=== PATIENT | male | born 1955 | race Caucasian/White ===

== ENCOUNTER 2017-04-11 05:59 | Outpatient (RCR) | payer MEDICARE, BC ==
[2016-05-12 10:49] VITALS: BMI 38.1
[~2017-04-11 05:59] MED LIST: ALLO100T70 PO; ASPI-1471 PO; BACOO OP; BETH25TA29 PO; BLOO1STR16 MC; BUM2 PO; CALC-515 PO; CEPH500T7 PO; CHOL10005 PO; DEXTROSE 50% 50 ML SYR IVP PRN; DOCU-202 PO; ERGO500037 PO; ESCI10TA8 PO; GABA-490 PO; GABA-503 PO; GABA-547 PO; GABA-549 PO; INSU100V26 IJ; INSU100V26 SUBQ; ISOS30TA54 PO; LOR5/325 PO; LORA-630 PO; METO2.5T15 PO; MIDO10TA9 PO; MIRT-22 PO; MORP-181 PO; NPH,100V2 IJ; NPH,100V2 SUBQ; ONDA4TAB PO; OXYC20TA12 PO; PANT40TA65 PO; PNEU0.5D3 IM; POLY17PO11 PO; PROMETHAZINE HCL 25 MG TAB PO PRN; SENN-187 PO; TAMS0.4C70 PO; VIT-35 PO; [UNRECOGNIZED DRUG - CODE] ID; [UNRECOGNIZED DRUG - CODE] PO; [UNRECOGNIZED DRUG - CODE] PO
[2017-04-11] MEDS: HEPARIN SOD (PORCINE) LOAD IVP PRN (06:19)
[2017-04-11] MEDS: HEPARIN (PORCINE) 1000 UNIT/ML (DIALYSIS) IVP PRN (06:19)
[2017-04-13] MEDS: HEPARIN SOD (PORCINE) LOAD IVP PRN (06:28)
[2017-04-13] MEDS: HEPARIN (PORCINE) 1000 UNIT/ML (DIALYSIS) IVP PRN (06:28)
[2017-04-13] MEDS: SODIUM FERRIC GLUC 62.5 MG/5ML IVP PRN (07:17)
[2017-04-15] MEDS: HEPARIN SOD (PORCINE) LOAD IVP PRN (06:29)
[2017-04-15] MEDS: HEPARIN (PORCINE) 1000 UNIT/ML (DIALYSIS) IVP PRN (06:29)
[2017-04-15] MEDS: DARBEPOETIN ESRD 25 MCG/ML IVP PRN (07:30)
[2017-04-18] MEDS: HEPARIN SOD (PORCINE) LOAD IVP PRN (06:31)
[2017-04-18] MEDS: HEPARIN (PORCINE) 1000 UNIT/ML (DIALYSIS) IVP PRN (06:31)
[2017-04-20] MEDS: HEPARIN (PORCINE) 1000 UNIT/ML (DIALYSIS) IVP PRN (06:15)
[2017-04-20] MEDS: HEPARIN SOD (PORCINE) LOAD IVP PRN (06:15)
[2017-04-20] MEDS: SODIUM FERRIC GLUC 62.5 MG/5ML IVP PRN (07:15)
[2017-04-22] MEDS: HEPARIN (PORCINE) 1000 UNIT/ML (DIALYSIS) IVP PRN (06:34)
[2017-04-22] MEDS: HEPARIN SOD (PORCINE) LOAD IVP PRN (06:35)
[2017-04-22] MEDS: DARBEPOETIN ESRD 25 MCG/ML IVP PRN (07:13)
[2017-04-25] MEDS: HEPARIN (PORCINE) 1000 UNIT/ML (DIALYSIS) IVP PRN (06:07)
[2017-04-25] MEDS: HEPARIN SOD (PORCINE) LOAD IVP PRN (06:07)
[2017-04-27] MEDS: HEPARIN SOD (PORCINE) LOAD IVP PRN (06:28)
[2017-04-27] MEDS: HEPARIN (PORCINE) 1000 UNIT/ML (DIALYSIS) IVP PRN (06:28)
[2017-04-27] MEDS: SODIUM FERRIC GLUC 62.5 MG/5ML IVP PRN (07:16)
[2017-04-27 09:00] LABS: PLATELET COUNT, AUTOMATED 159 K/uL (150-450)
[2017-04-29] MEDS: HEPARIN (PORCINE) 1000 UNIT/ML (DIALYSIS) IVP PRN (06:16)
[2017-04-29] MEDS: HEPARIN SOD (PORCINE) LOAD IVP PRN (06:16)
[2017-04-29] MEDS: DARBEPOETIN ESRD 25 MCG/ML IVP PRN (07:11)
[2017-05-02] MEDS: HEPARIN SOD (PORCINE) LOAD IVP PRN (06:21)
[2017-05-02] MEDS: HEPARIN (PORCINE) 1000 UNIT/ML (DIALYSIS) IVP PRN (06:21)
[2017-05-02] MEDS ORDERED: NOVOLINRPT IJ (14:09)
[2017-05-02] MEDS ORDERED: NPH,100V12 SQ (14:09)
[2017-05-02] MEDS ORDERED: GABA-549 PO (14:09)
[2017-05-03] MEDS ORDERED: NPH,100V12 SQ (14:30)
[2017-05-03] MEDS ORDERED: NOVOLINRPT IJ (14:30)
[2017-05-04] MEDS: HEPARIN (PORCINE) 1000 UNIT/ML (DIALYSIS) IVP PRN (06:21)
[2017-05-04] MEDS: HEPARIN SOD (PORCINE) LOAD IVP PRN (06:21)
[2017-05-04] MEDS: SODIUM FERRIC GLUC 62.5 MG/5ML IVP PRN (07:26)
[2017-05-06] MEDS: HEPARIN SOD (PORCINE) LOAD IVP PRN (06:18)
[2017-05-06] MEDS: HEPARIN (PORCINE) 1000 UNIT/ML (DIALYSIS) IVP PRN (06:18)
[2017-05-06] MEDS: DARBEPOETIN ESRD 25 MCG/ML IVP PRN (07:24)
[2017-05-09] MEDS: HEPARIN SOD (PORCINE) LOAD IVP PRN (06:25)
[2017-05-09] MEDS: HEPARIN (PORCINE) 1000 UNIT/ML (DIALYSIS) IVP PRN (06:25)
[2017-05-11] MEDS: HEPARIN SOD (PORCINE) LOAD IVP PRN (06:28)
[2017-05-11] MEDS: HEPARIN (PORCINE) 1000 UNIT/ML (DIALYSIS) IVP PRN (06:28)
[2017-05-11] MEDS: SODIUM FERRIC GLUC 62.5 MG/5ML IVP PRN (07:13)
[2017-05-13] MEDS: HEPARIN SOD (PORCINE) LOAD IVP PRN (06:21)
[2017-05-13] MEDS: HEPARIN (PORCINE) 1000 UNIT/ML (DIALYSIS) IVP PRN (06:21)
[2017-05-13] MEDS: DARBEPOETIN ESRD 25 MCG/ML IVP PRN (07:16)
[2017-05-16] MEDS: HEPARIN (PORCINE) 1000 UNIT/ML (DIALYSIS) IVP PRN (06:21)
[2017-05-16] MEDS: HEPARIN SOD (PORCINE) LOAD IVP PRN (06:21)
[2017-05-17] MEDS ORDERED: HEPARIN (PORCINE) 1000 UNIT/ML (DIALYSIS) IVP PRN ×2
[2017-05-17] MEDS: HEPARIN SOD (PORCINE) LOAD IVP PRN (07:05)
[2017-05-18] MEDS: HEPARIN SOD (PORCINE) LOAD IVP PRN (06:31)
[2017-05-18] MEDS: HEPARIN (PORCINE) 1000 UNIT/ML (DIALYSIS) IVP PRN (06:31)
[2017-05-18] MEDS: SODIUM FERRIC GLUC 62.5 MG/5ML IVP PRN (07:55)
[2017-05-18] MEDS: DIALYSIS ACETAMINOPHEN 325 MG PO PRN (08:54)
[2017-05-20] MEDS: HEPARIN (PORCINE) 1000 UNIT/ML (DIALYSIS) IVP PRN (06:11)
[2017-05-20] MEDS: HEPARIN SOD (PORCINE) LOAD IVP PRN (06:11)
[2017-05-20] MEDS ORDERED: DARBEPOETIN ESRD 25 MCG/ML IVP PRN (10:15)
[2017-05-23] MEDS: HEPARIN (PORCINE) 1000 UNIT/ML (DIALYSIS) IVP PRN (06:23)
[2017-05-23] MEDS: HEPARIN SOD (PORCINE) LOAD IVP PRN (06:23)
[2017-05-25] MEDS: HEPARIN (PORCINE) 1000 UNIT/ML (DIALYSIS) IVP PRN (06:27)
[2017-05-25] MEDS: HEPARIN SOD (PORCINE) LOAD IVP PRN (06:27)
[2017-05-25] MEDS: SODIUM FERRIC GLUC 62.5 MG/5ML IVP PRN (07:30)
[2017-05-25] MEDS: DIALYSIS ACETAMINOPHEN 325 MG PO PRN (10:46)
[2017-05-27] MEDS: HEPARIN (PORCINE) 1000 UNIT/ML (DIALYSIS) IVP PRN (06:13)
[2017-05-27] MEDS: HEPARIN SOD (PORCINE) LOAD IVP PRN (06:13)
[2017-05-30] MEDS: HEPARIN SOD (PORCINE) LOAD IVP PRN (06:25)
[2017-05-30] MEDS: HEPARIN (PORCINE) 1000 UNIT/ML (DIALYSIS) IVP PRN (06:25)
[2017-05-30] MEDS: LOPERAMIDE HCL 2 MG CAP PO PRN (07:21)
[2017-06-01] MEDS: HEPARIN SOD (PORCINE) LOAD IVP PRN (06:23)
[2017-06-01] MEDS: HEPARIN (PORCINE) 1000 UNIT/ML (DIALYSIS) IVP PRN (06:24)
[2017-06-01] MEDS: LOPERAMIDE HCL 2 MG CAP PO PRN (06:44)
[2017-06-01 07:03] LABS: PLATELET COUNT, AUTOMATED 165 K/uL (150-450)
[2017-06-01] MEDS: SODIUM FERRIC GLUC 62.5 MG/5ML IVP PRN (07:18)
[2017-06-03] MEDS: HEPARIN (PORCINE) 1000 UNIT/ML (DIALYSIS) IVP PRN (06:13)
[2017-06-03] MEDS: HEPARIN SOD (PORCINE) LOAD IVP PRN (06:13)
[2017-06-03] MEDS ORDERED: GABA-490 PO (10:29)
[2017-06-03] MEDS: DARBEPOETIN ESRD 25 MCG/ML IVP PRN (10:39)
[2017-06-06] MEDS: HEPARIN (PORCINE) 1000 UNIT/ML (DIALYSIS) IVP PRN (06:10)
[2017-06-06] MEDS: HEPARIN SOD (PORCINE) LOAD IVP PRN (06:10)
[2017-06-08] MEDS: HEPARIN (PORCINE) 1000 UNIT/ML (DIALYSIS) IVP PRN (06:16)
[2017-06-08] MEDS: HEPARIN SOD (PORCINE) LOAD IVP PRN (06:16)
[2017-06-08] MEDS: SODIUM FERRIC GLUC 62.5 MG/5ML IVP PRN (07:20)
[2017-06-08] MEDS ORDERED: BUM2 PO (09:35)
[2017-06-10] MEDS: HEPARIN (PORCINE) 1000 UNIT/ML (DIALYSIS) IVP PRN (06:08)
[2017-06-10] MEDS: HEPARIN SOD (PORCINE) LOAD IVP PRN (06:08)
[2017-06-10] MEDS: DARBEPOETIN ESRD 25 MCG/ML IVP PRN (06:15)
[2017-06-13] MEDS: HEPARIN SOD (PORCINE) LOAD IVP PRN (06:16)
[2017-06-13] MEDS: HEPARIN (PORCINE) 1000 UNIT/ML (DIALYSIS) IVP PRN (06:17)
[2017-06-15] MEDS: HEPARIN (PORCINE) 1000 UNIT/ML (DIALYSIS) IVP PRN (06:19)
[2017-06-15] MEDS: HEPARIN SOD (PORCINE) LOAD IVP PRN (06:21)
[2017-06-15] MEDS: SODIUM FERRIC GLUC 62.5 MG/5ML IVP PRN (07:11)
[2017-06-15] MEDS ORDERED: GABA-490 PO (09:44)
[2017-06-17] MEDS: HEPARIN SOD (PORCINE) LOAD IVP PRN (06:16)
[2017-06-17] MEDS: HEPARIN (PORCINE) 1000 UNIT/ML (DIALYSIS) IVP PRN (06:16)
[2017-06-17] MEDS: DARBEPOETIN ESRD 25 MCG/ML IVP PRN (07:07)
[2017-06-17] MEDS: DIALYSIS ACETAMINOPHEN 325 MG PO PRN (09:04)
[2017-06-20] MEDS: HEPARIN (PORCINE) 1000 UNIT/ML (DIALYSIS) IVP PRN (06:19)
[2017-06-20] MEDS: HEPARIN SOD (PORCINE) LOAD IVP PRN (06:19)
[2017-06-22] MEDS: HEPARIN (PORCINE) 1000 UNIT/ML (DIALYSIS) IVP PRN (06:20)
[2017-06-22] MEDS: HEPARIN SOD (PORCINE) LOAD IVP PRN (06:20)
[2017-06-22] MEDS: SODIUM FERRIC GLUC 62.5 MG/5ML IVP PRN (07:17)
[2017-06-24] MEDS: HEPARIN SOD (PORCINE) LOAD IVP PRN (06:18)
[2017-06-24] MEDS: HEPARIN (PORCINE) 1000 UNIT/ML (DIALYSIS) IVP PRN (06:18)
[2017-06-24] MEDS: DARBEPOETIN ESRD 25 MCG/ML IVP PRN (07:07)
[2017-06-27] MEDS: HEPARIN SOD (PORCINE) LOAD IVP PRN (06:15)
[2017-06-27] MEDS: HEPARIN (PORCINE) 1000 UNIT/ML (DIALYSIS) IVP PRN (06:15)
[2017-06-29] MEDS: HEPARIN SOD (PORCINE) LOAD IVP PRN (06:22)
[2017-06-29] MEDS: HEPARIN (PORCINE) 1000 UNIT/ML (DIALYSIS) IVP PRN (06:22)
[2017-06-29] MEDS: SODIUM FERRIC GLUC 62.5 MG/5ML IVP PRN (07:02)
[2017-06-29 07:25] LABS: PLATELET COUNT, AUTOMATED 185 K/uL (150-450)
[2017-06-29] MEDS: LOPERAMIDE HCL 2 MG CAP PO PRN (07:48)
[2017-07-01] MEDS: HEPARIN (PORCINE) 1000 UNIT/ML (DIALYSIS) IVP PRN (06:31)
[2017-07-01] MEDS: HEPARIN SOD (PORCINE) LOAD IVP PRN (06:31)
[2017-07-01] MEDS: DARBEPOETIN ESRD 25 MCG/ML IVP PRN (07:54)
[2017-07-04] MEDS: HEPARIN (PORCINE) 1000 UNIT/ML (DIALYSIS) IVP PRN (06:13)
[2017-07-04] MEDS: HEPARIN SOD (PORCINE) LOAD IVP PRN (06:13)
[2017-07-06] MEDS: HEPARIN (PORCINE) 1000 UNIT/ML (DIALYSIS) IVP PRN (06:22)
[2017-07-06] MEDS: HEPARIN SOD (PORCINE) LOAD IVP PRN (06:22)
[2017-07-06] MEDS: SODIUM FERRIC GLUC 62.5 MG/5ML IVP PRN (07:13)
[2017-07-08] MEDS: HEPARIN (PORCINE) 1000 UNIT/ML (DIALYSIS) IVP PRN (06:14)
[2017-07-08] MEDS: HEPARIN SOD (PORCINE) LOAD IVP PRN (06:15)
[2017-07-08] MEDS: DARBEPOETIN ESRD 25 MCG/ML IVP PRN (06:36)
[2017-07-11] MEDS: HEPARIN SOD (PORCINE) LOAD IVP PRN (06:12)
[2017-07-11] MEDS: HEPARIN (PORCINE) 1000 UNIT/ML (DIALYSIS) IVP PRN (06:13)
[2017-07-11] MEDS: LOPERAMIDE HCL 2 MG CAP PO PRN (07:08)
[2017-07-13] MEDS: HEPARIN (PORCINE) 1000 UNIT/ML (DIALYSIS) IVP PRN (06:21)
[2017-07-13] MEDS: HEPARIN SOD (PORCINE) LOAD IVP PRN (06:21)
[2017-07-13] MEDS: SODIUM FERRIC GLUC 62.5 MG/5ML IVP PRN (07:48)
[2017-07-15] MEDS: HEPARIN SOD (PORCINE) LOAD IVP PRN (06:30)
[2017-07-15] MEDS: HEPARIN (PORCINE) 1000 UNIT/ML (DIALYSIS) IVP PRN (06:30)
[2017-07-15] MEDS: DARBEPOETIN ESRD 40MCG/ML IVP PRN (08:54)
[2017-07-18] MEDS: HEPARIN SOD (PORCINE) LOAD IVP PRN (06:22)
[2017-07-18] MEDS: HEPARIN (PORCINE) 1000 UNIT/ML (DIALYSIS) IVP PRN (06:22)
[2017-07-20] MEDS: HEPARIN SOD (PORCINE) LOAD IVP PRN (06:18)
[2017-07-20] MEDS: HEPARIN (PORCINE) 1000 UNIT/ML (DIALYSIS) IVP PRN (06:18)
[2017-07-20] MEDS: SODIUM FERRIC GLUC 62.5 MG/5ML IVP PRN (07:29)
[2017-07-22] MEDS: HEPARIN (PORCINE) 1000 UNIT/ML (DIALYSIS) IVP PRN (06:14)
[2017-07-22] MEDS: HEPARIN SOD (PORCINE) LOAD IVP PRN (06:14)
[2017-07-22] MEDS: DARBEPOETIN ESRD 40MCG/ML IVP PRN (07:53)
[2017-07-25] MEDS: HEPARIN SOD (PORCINE) LOAD IVP PRN (06:10)
[2017-07-25] MEDS: HEPARIN (PORCINE) 1000 UNIT/ML (DIALYSIS) IVP PRN (06:10)
[2017-07-27] MEDS: HEPARIN (PORCINE) 1000 UNIT/ML (DIALYSIS) IVP PRN (06:31)
[2017-07-27] MEDS: HEPARIN SOD (PORCINE) LOAD IVP PRN (06:31)
[2017-07-27] MEDS: SODIUM FERRIC GLUC 62.5 MG/5ML IVP PRN (07:28)
[2017-07-27 07:35] LABS: PLATELET COUNT, AUTOMATED 198 K/uL (150-450)
[2017-07-29] MEDS: HEPARIN SOD (PORCINE) LOAD IVP PRN (06:12)
[2017-07-29] MEDS: HEPARIN (PORCINE) 1000 UNIT/ML (DIALYSIS) IVP PRN (06:13)
[2017-07-29] MEDS: DARBEPOETIN ESRD 40MCG/ML IVP PRN (06:39)
[2017-08-01] MEDS: HEPARIN (PORCINE) 1000 UNIT/ML (DIALYSIS) IVP PRN (06:10)
[2017-08-01] MEDS: HEPARIN SOD (PORCINE) LOAD IVP PRN (06:10)
[2017-08-03] MEDS: HEPARIN (PORCINE) 1000 UNIT/ML (DIALYSIS) IVP PRN (06:25)
[2017-08-03] MEDS: HEPARIN SOD (PORCINE) LOAD IVP PRN (06:25)
[2017-08-05] MEDS: HEPARIN (PORCINE) 1000 UNIT/ML (DIALYSIS) IVP PRN (06:26)
[2017-08-05] MEDS: HEPARIN SOD (PORCINE) LOAD IVP PRN (06:26)
[2017-08-05] MEDS: DARBEPOETIN ESRD 40MCG/ML IVP PRN (07:49)
[2017-08-08] MEDS: HEPARIN (PORCINE) 1000 UNIT/ML (DIALYSIS) IVP PRN (06:22)
[2017-08-08] MEDS: HEPARIN SOD (PORCINE) LOAD IVP PRN (06:22)
[2017-08-10] MEDS: HEPARIN (PORCINE) 1000 UNIT/ML (DIALYSIS) IVP PRN (06:33)
[2017-08-10] MEDS: HEPARIN SOD (PORCINE) LOAD IVP PRN (06:33)
[2017-08-10] MEDS ORDERED: SODIUM FERRIC GLUC 62.5 MG/5ML IVP PRN (07:00)
[2017-08-12] MEDS: HEPARIN SOD (PORCINE) LOAD IVP PRN (06:23)
[2017-08-12] MEDS: HEPARIN (PORCINE) 1000 UNIT/ML (DIALYSIS) IVP PRN (06:23)
[2017-08-12] MEDS: DARBEPOETIN ESRD 40MCG/ML IVP PRN (07:10)
[2017-08-15] MEDS: HEPARIN SOD (PORCINE) LOAD IVP PRN (06:27)
[2017-08-15] MEDS: HEPARIN (PORCINE) 1000 UNIT/ML (DIALYSIS) IVP PRN (06:28)
[2017-08-17] MEDS: HEPARIN SOD (PORCINE) LOAD IVP PRN (06:41)
[2017-08-17] MEDS: HEPARIN (PORCINE) 1000 UNIT/ML (DIALYSIS) IVP PRN (06:41)
[2017-08-17 08:05] LABS: PLATELET COUNT, AUTOMATED 163 K/uL (150-450)
[2017-08-17] MEDS: DARBEPOETIN ESRD 40MCG/ML IVP PRN (08:56)
[2017-08-24] MEDS: HEPARIN SOD (PORCINE) LOAD IVP PRN (06:22)
[2017-08-24] MEDS: HEPARIN (PORCINE) 1000 UNIT/ML (DIALYSIS) IVP PRN (06:22)
[2017-08-26] MEDS: HEPARIN SOD (PORCINE) LOAD IVP PRN (06:23)
[2017-08-26] MEDS: HEPARIN (PORCINE) 1000 UNIT/ML (DIALYSIS) IVP PRN (06:23)
[2017-08-26] MEDS: DARBEPOETIN ESRD 25 MCG/ML IVP PRN (07:32)
[2017-08-29] MEDS: HEPARIN SOD (PORCINE) LOAD IVP PRN (06:32)
[2017-08-29] MEDS: HEPARIN (PORCINE) 1000 UNIT/ML (DIALYSIS) IVP PRN (06:32)
[2017-08-31] MEDS: HEPARIN SOD (PORCINE) LOAD IVP PRN (06:24)
[2017-08-31] MEDS: HEPARIN (PORCINE) 1000 UNIT/ML (DIALYSIS) IVP PRN (06:25)
[2017-08-31] MEDS: SODIUM FERRIC GLUC 62.5 MG/5ML IVP PRN (07:32)
[2017-09-02] MEDS: HEPARIN SOD (PORCINE) LOAD IVP PRN (06:21)
[2017-09-02] MEDS: HEPARIN (PORCINE) 1000 UNIT/ML (DIALYSIS) IVP PRN (06:22)
[2017-09-02] MEDS: DARBEPOETIN ESRD 25 MCG/ML IVP PRN (07:12)
[2017-09-05] MEDS: HEPARIN (PORCINE) 1000 UNIT/ML (DIALYSIS) IVP PRN (06:33)
[2017-09-05] MEDS: HEPARIN SOD (PORCINE) LOAD IVP PRN (06:33)
[2017-09-07] MEDS: HEPARIN (PORCINE) 1000 UNIT/ML (DIALYSIS) IVP PRN (06:26)
[2017-09-07] MEDS: HEPARIN SOD (PORCINE) LOAD IVP PRN (06:27)
[2017-09-07] MEDS: LOPERAMIDE HCL 2 MG CAP PO PRN (07:20)
[2017-09-07] MEDS: SODIUM FERRIC GLUC 62.5 MG/5ML IVP PRN (07:20)
[2017-09-09] MEDS: HEPARIN SOD (PORCINE) LOAD IVP PRN (06:18)
[2017-09-09] MEDS: HEPARIN (PORCINE) 1000 UNIT/ML (DIALYSIS) IVP PRN (06:18)
[2017-09-09] MEDS: DARBEPOETIN ESRD 40MCG/ML IVP PRN (06:41)
[2017-09-12] MEDS: HEPARIN (PORCINE) 1000 UNIT/ML (DIALYSIS) IVP PRN (06:23)
[2017-09-12] MEDS: HEPARIN SOD (PORCINE) LOAD IVP PRN (06:23)
[2017-09-12] MEDS: LOPERAMIDE HCL 2 MG CAP PO PRN (06:52)
[2017-09-14] MEDS: HEPARIN SOD (PORCINE) LOAD IVP PRN (06:19)
[2017-09-14] MEDS: HEPARIN (PORCINE) 1000 UNIT/ML (DIALYSIS) IVP PRN (06:20)
[2017-09-14] MEDS: LOPERAMIDE HCL 2 MG CAP PO PRN (06:25)
[2017-09-14] MEDS: SODIUM FERRIC GLUC 62.5 MG/5ML IVP PRN (07:16)
[2017-09-14 07:22] LABS: PLATELET COUNT, AUTOMATED 150 K/uL (150-450)
[2017-09-16] MEDS: HEPARIN (PORCINE) 1000 UNIT/ML (DIALYSIS) IVP PRN (06:14)
[2017-09-16] MEDS: HEPARIN SOD (PORCINE) LOAD IVP PRN (06:14)
[2017-09-16] MEDS: DARBEPOETIN ESRD 40MCG/ML IVP PRN (06:57)
[2017-09-19] MEDS: HEPARIN SOD (PORCINE) LOAD IVP PRN (06:09)
[2017-09-19] MEDS: HEPARIN (PORCINE) 1000 UNIT/ML (DIALYSIS) IVP PRN (06:10)
[2017-09-21] MEDS: HEPARIN (PORCINE) 1000 UNIT/ML (DIALYSIS) IVP PRN (06:23)
[2017-09-21] MEDS: HEPARIN SOD (PORCINE) LOAD IVP PRN (06:23)
[2017-09-21] MEDS: SODIUM FERRIC GLUC 62.5 MG/5ML IVP PRN (07:34)
[2017-09-23] MEDS: HEPARIN (PORCINE) 1000 UNIT/ML (DIALYSIS) IVP PRN (06:22)
[2017-09-23] MEDS: HEPARIN SOD (PORCINE) LOAD IVP PRN (06:23)
[2017-09-23] MEDS: DARBEPOETIN ESRD 40MCG/ML IVP PRN (07:00)
[2017-09-23] MEDS: LOPERAMIDE HCL 2 MG CAP PO PRN (07:30)
[2017-09-26] MEDS: HEPARIN (PORCINE) 1000 UNIT/ML (DIALYSIS) IVP PRN (06:18)
[2017-09-26] MEDS: HEPARIN SOD (PORCINE) LOAD IVP PRN (06:18)
[2017-09-27] MEDS ORDERED: MIRT-22 PO (13:21)
[2017-09-28] MEDS: HEPARIN (PORCINE) 1000 UNIT/ML (DIALYSIS) IVP PRN (06:09)
[2017-09-28] MEDS: HEPARIN SOD (PORCINE) LOAD IVP PRN (06:09)
[2017-09-28] MEDS: SODIUM FERRIC GLUC 62.5 MG/5ML IVP PRN (08:05)
[2017-09-28] MEDS ORDERED: PANT40TA65 PO (10:18)
[2017-09-28] MEDS ORDERED: TAMS0.4C70 PO (10:18)
[2017-10-07] MEDS: HEPARIN (PORCINE) 1000 UNIT/ML (DIALYSIS) IVP PRN (13:50)
[2017-10-07] MEDS: HEPARIN SOD (PORCINE) LOAD IVP PRN (13:51)
[2017-10-07] MEDS: DARBEPOETIN ESRD 40MCG/ML IVP PRN (15:44)
[2017-10-10] MEDS: HEPARIN (PORCINE) 1000 UNIT/ML (DIALYSIS) IVP PRN (06:31)
[2017-10-10] MEDS: HEPARIN SOD (PORCINE) LOAD IVP PRN (06:31)
[2017-10-14] MEDS: HEPARIN SOD (PORCINE) LOAD IVP PRN (14:01)
[2017-10-14] MEDS: HEPARIN (PORCINE) 1000 UNIT/ML (DIALYSIS) IVP PRN (14:01)
[2017-10-14] MEDS: DARBEPOETIN ESRD 40MCG/ML IVP PRN (16:28)
[2017-10-17] MEDS: HEPARIN SOD (PORCINE) LOAD IVP PRN (06:14)
[2017-10-17] MEDS: HEPARIN (PORCINE) 1000 UNIT/ML (DIALYSIS) IVP PRN (06:14)
[2017-10-19] MEDS: HEPARIN (PORCINE) 1000 UNIT/ML (DIALYSIS) IVP PRN (06:32)
[2017-10-19] MEDS: HEPARIN SOD (PORCINE) LOAD IVP PRN (06:33)
[2017-10-19] MEDS: SODIUM FERRIC GLUC 62.5 MG/5ML IVP PRN (07:51)
[2017-10-20] MEDS ORDERED: GABA-503 PO (11:04)
[2017-10-20] MEDS ORDERED: NPH,100V12 SQ (11:04)
[2017-10-20] MEDS ORDERED: SULF-198 PO (11:12)
[2017-10-21] MEDS: HEPARIN SOD (PORCINE) LOAD IVP PRN (06:23)
[2017-10-21] MEDS: HEPARIN (PORCINE) 1000 UNIT/ML (DIALYSIS) IVP PRN (06:23)
[2017-10-21] MEDS: DARBEPOETIN ESRD 40MCG/ML IVP PRN (07:44)
[2017-10-24] MEDS: HEPARIN (PORCINE) 1000 UNIT/ML (DIALYSIS) IVP PRN (06:21)
[2017-10-24] MEDS: HEPARIN SOD (PORCINE) LOAD IVP PRN (06:21)
[2017-10-26] MEDS: HEPARIN SOD (PORCINE) LOAD IVP PRN (06:26)
[2017-10-26] MEDS: HEPARIN (PORCINE) 1000 UNIT/ML (DIALYSIS) IVP PRN (06:26)
[2017-10-26] MEDS: SODIUM FERRIC GLUC 62.5 MG/5ML IVP PRN (07:38)
[2017-10-26 07:55] LABS: PLATELET COUNT, AUTOMATED 168 K/uL (150-450)
[2017-10-28] MEDS: HEPARIN (PORCINE) 1000 UNIT/ML (DIALYSIS) IVP PRN (06:39)
[2017-10-28] MEDS: HEPARIN SOD (PORCINE) LOAD IVP PRN (06:39)
[2017-10-28] MEDS: DARBEPOETIN ESRD 40MCG/ML IVP PRN (08:16)
[2017-10-31] MEDS: HEPARIN SOD (PORCINE) LOAD IVP PRN (06:18)
[2017-10-31] MEDS: HEPARIN (PORCINE) 1000 UNIT/ML (DIALYSIS) IVP PRN (06:18)
[2017-11-02] MEDS: HEPARIN (PORCINE) 1000 UNIT/ML (DIALYSIS) IVP PRN (06:17)
[2017-11-02] MEDS: HEPARIN SOD (PORCINE) LOAD IVP PRN (06:18)
[2017-11-02] MEDS: SODIUM FERRIC GLUC 62.5 MG/5ML IVP PRN (06:53)
[2017-11-02] MEDS ORDERED: CHOL10005 PO (09:46)
[2017-11-04] MEDS: HEPARIN SOD (PORCINE) LOAD IVP PRN (06:18)
[2017-11-04] MEDS: HEPARIN (PORCINE) 1000 UNIT/ML (DIALYSIS) IVP PRN (06:18)
[2017-11-04] MEDS: DARBEPOETIN ESRD 25 MCG/ML IVP PRN (07:25)
[2017-11-04] MEDS: DIALYSIS ACETAMINOPHEN 325 MG PO PRN (08:17)
[2017-11-07] MEDS: HEPARIN SOD (PORCINE) LOAD IVP PRN (06:15)
[2017-11-07] MEDS: HEPARIN (PORCINE) 1000 UNIT/ML (DIALYSIS) IVP PRN (06:15)
[2017-11-09] MEDS: HEPARIN SOD (PORCINE) LOAD IVP PRN (06:28)
[2017-11-09] MEDS: HEPARIN (PORCINE) 1000 UNIT/ML (DIALYSIS) IVP PRN (06:28)
[2017-11-09] MEDS: SODIUM FERRIC GLUC 62.5 MG/5ML IVP PRN (07:17)
[2017-11-11] MEDS: HEPARIN (PORCINE) 1000 UNIT/ML (DIALYSIS) IVP PRN (06:23)
[2017-11-11] MEDS: HEPARIN SOD (PORCINE) LOAD IVP PRN (06:23)
[2017-11-11] MEDS: LOPERAMIDE HCL 2 MG CAP PO PRN (06:31)
[2017-11-11] MEDS: DARBEPOETIN ESRD 25 MCG/ML IVP PRN (10:59)
[2017-11-14] MEDS: HEPARIN (PORCINE) 1000 UNIT/ML (DIALYSIS) IVP PRN (06:28)
[2017-11-14] MEDS: HEPARIN SOD (PORCINE) LOAD IVP PRN (06:28)
[2017-11-16] MEDS: HEPARIN SOD (PORCINE) LOAD IVP PRN (06:18)
[2017-11-16] MEDS: HEPARIN (PORCINE) 1000 UNIT/ML (DIALYSIS) IVP PRN (06:18)
[2017-11-16] MEDS: LOPERAMIDE HCL 2 MG CAP PO PRN (07:18)
[2017-11-16] MEDS: SODIUM FERRIC GLUC 62.5 MG/5ML IVP PRN (07:18)
[2017-11-16 07:31] LABS: PLATELET COUNT, AUTOMATED 183 K/uL (150-450)
[2017-11-17] MEDS ORDERED: PANT40TA65 PO (16:01)
[2017-11-17] MEDS ORDERED: TAMS0.4C70 PO (16:01)
[2017-11-18] MEDS: HEPARIN SOD (PORCINE) LOAD IVP PRN (06:08)
[2017-11-18] MEDS: HEPARIN (PORCINE) 1000 UNIT/ML (DIALYSIS) IVP PRN (06:09)
[2017-11-18] MEDS: DARBEPOETIN ESRD 25 MCG/ML IVP PRN (06:44)
[2017-11-21] MEDS: HEPARIN (PORCINE) 1000 UNIT/ML (DIALYSIS) IVP PRN (06:15)
[2017-11-21] MEDS: HEPARIN SOD (PORCINE) LOAD IVP PRN (06:15)
[2017-11-21] MEDS: LOPERAMIDE HCL 2 MG CAP PO PRN (06:30)
[2017-11-23] MEDS: HEPARIN SOD (PORCINE) LOAD IVP PRN (06:20)
[2017-11-23] MEDS: HEPARIN (PORCINE) 1000 UNIT/ML (DIALYSIS) IVP PRN (06:20)
[2017-11-23] MEDS: SODIUM FERRIC GLUC 62.5 MG/5ML IVP PRN (07:13)
[2017-11-25] MEDS: HEPARIN SOD (PORCINE) LOAD IVP PRN (06:18)
[2017-11-25] MEDS: HEPARIN (PORCINE) 1000 UNIT/ML (DIALYSIS) IVP PRN (06:18)
[2017-11-25] MEDS: DARBEPOETIN ESRD 25 MCG/ML IVP PRN (07:13)
[2017-11-28] MEDS: HEPARIN SOD (PORCINE) LOAD IVP PRN (06:04)
[2017-11-28] MEDS: HEPARIN (PORCINE) 1000 UNIT/ML (DIALYSIS) IVP PRN (06:05)
[2017-11-30] MEDS: HEPARIN SOD (PORCINE) LOAD IVP PRN (06:21)
[2017-11-30] MEDS: HEPARIN (PORCINE) 1000 UNIT/ML (DIALYSIS) IVP PRN (06:22)
[2017-11-30] MEDS: SODIUM FERRIC GLUC 62.5 MG/5ML IVP PRN (06:29)
[2017-12-02] MEDS: HEPARIN SOD (PORCINE) LOAD IVP PRN (06:23)
[2017-12-02] MEDS: HEPARIN (PORCINE) 1000 UNIT/ML (DIALYSIS) IVP PRN (06:23)
[2017-12-02] MEDS: DARBEPOETIN ESRD 25 MCG/ML IVP PRN (07:14)
[2017-12-05] MEDS: HEPARIN (PORCINE) 1000 UNIT/ML (DIALYSIS) IVP PRN (06:13)
[2017-12-05] MEDS: HEPARIN SOD (PORCINE) LOAD IVP PRN (06:14)
[2017-12-07] MEDS: HEPARIN SOD (PORCINE) LOAD IVP PRN (06:10)
[2017-12-07] MEDS: HEPARIN (PORCINE) 1000 UNIT/ML (DIALYSIS) IVP PRN (06:10)
[2017-12-07] MEDS: SODIUM FERRIC GLUC 62.5 MG/5ML IVP PRN (07:05)
[2017-12-09] MEDS: HEPARIN (PORCINE) 1000 UNIT/ML (DIALYSIS) IVP PRN (06:21)
[2017-12-09] MEDS: HEPARIN SOD (PORCINE) LOAD IVP PRN (06:21)
[2017-12-09] MEDS: DARBEPOETIN ESRD 25 MCG/ML IVP PRN (07:34)
[2017-12-12] MEDS: HEPARIN (PORCINE) 1000 UNIT/ML (DIALYSIS) IVP PRN (06:21)
[2017-12-12] MEDS: HEPARIN SOD (PORCINE) LOAD IVP PRN (06:21)
[2017-12-14] MEDS: HEPARIN (PORCINE) 1000 UNIT/ML (DIALYSIS) IVP PRN (06:16)
[2017-12-14] MEDS: HEPARIN SOD (PORCINE) LOAD IVP PRN (06:17)
[2017-12-14] MEDS: SODIUM FERRIC GLUC 62.5 MG/5ML IVP PRN (06:43)
[2017-12-16] MEDS: HEPARIN (PORCINE) 1000 UNIT/ML (DIALYSIS) IVP PRN (06:08)
[2017-12-16] MEDS: HEPARIN SOD (PORCINE) LOAD IVP PRN (06:09)
[2017-12-16] MEDS: DARBEPOETIN ESRD 25 MCG/ML IVP PRN (07:23)
[2017-12-19] MEDS: HEPARIN SOD (PORCINE) LOAD IVP PRN (06:14)
[2017-12-19] MEDS: HEPARIN (PORCINE) 1000 UNIT/ML (DIALYSIS) IVP PRN (06:15)
[2017-12-20] MEDS ORDERED: BLOO1STR16 MC (16:46)
[2017-12-21] MEDS: HEPARIN SOD (PORCINE) LOAD IVP PRN (06:25)
[2017-12-21] MEDS: HEPARIN (PORCINE) 1000 UNIT/ML (DIALYSIS) IVP PRN (06:25)
[2017-12-21] MEDS: SODIUM FERRIC GLUC 62.5 MG/5ML IVP PRN (07:19)
[2017-12-23] MEDS: HEPARIN SOD (PORCINE) LOAD IVP PRN (06:10)
[2017-12-23] MEDS: HEPARIN (PORCINE) 1000 UNIT/ML (DIALYSIS) IVP PRN (06:11)
[2017-12-23] MEDS: DARBEPOETIN ESRD 25 MCG/ML IVP PRN (07:14)
[2017-12-26] MEDS: HEPARIN SOD (PORCINE) LOAD IVP PRN (06:12)
[2017-12-26] MEDS: HEPARIN (PORCINE) 1000 UNIT/ML (DIALYSIS) IVP PRN (06:13)
[2017-12-28] MEDS: HEPARIN SOD (PORCINE) LOAD IVP PRN (06:09)
[2017-12-28] MEDS: HEPARIN (PORCINE) 1000 UNIT/ML (DIALYSIS) IVP PRN (06:09)
[2017-12-28] MEDS: SODIUM FERRIC GLUC 62.5 MG/5ML IVP PRN (06:45)
[2017-12-28 06:52] LABS: PLATELET COUNT, AUTOMATED 158 K/uL (150-450)
[2017-12-28] MEDS ORDERED: CALC-521 PO (08:54)
[2017-12-30] MEDS: HEPARIN (PORCINE) 1000 UNIT/ML (DIALYSIS) IVP PRN (06:13)
[2017-12-30] MEDS: HEPARIN SOD (PORCINE) LOAD IVP PRN (06:14)
[2017-12-30] MEDS: DARBEPOETIN ESRD 100 MCG/0.5ML SYR IVP PRN (07:30)
[2018-01-02] MEDS: HEPARIN (PORCINE) 1000 UNIT/ML (DIALYSIS) IVP PRN (06:11)
[2018-01-02] MEDS: HEPARIN SOD (PORCINE) LOAD IVP PRN (06:11)
[2018-01-04] MEDS: HEPARIN SOD (PORCINE) LOAD IVP PRN (06:15)
[2018-01-04] MEDS: HEPARIN (PORCINE) 1000 UNIT/ML (DIALYSIS) IVP PRN (06:15)
[2018-01-04] MEDS: SODIUM FERRIC GLUC 62.5 MG/5ML IVP PRN (07:42)
[2018-01-04] MEDS ORDERED: INFLUENZA VIRUS VAC 0.5ML SYR IM ONLY ONE (10:30)
[2018-01-06] MEDS: HEPARIN SOD (PORCINE) LOAD IVP PRN (06:15)
[2018-01-06] MEDS: HEPARIN (PORCINE) 1000 UNIT/ML (DIALYSIS) IVP PRN (06:16)
[2018-01-06] MEDS: DARBEPOETIN ESRD 100 MCG/0.5ML SYR IVP PRN (07:32)
[2018-01-09] MEDS: HEPARIN SOD (PORCINE) LOAD IVP PRN (06:14)
[2018-01-09] MEDS: HEPARIN (PORCINE) 1000 UNIT/ML (DIALYSIS) IVP PRN (06:14)
[2018-01-11] MEDS: HEPARIN (PORCINE) 1000 UNIT/ML (DIALYSIS) IVP PRN (06:21)
[2018-01-11] MEDS: HEPARIN SOD (PORCINE) LOAD IVP PRN (06:21)
[2018-01-11] MEDS: SODIUM FERRIC GLUC 62.5 MG/5ML IVP PRN (07:11)
[2018-01-13] MEDS: HEPARIN (PORCINE) 1000 UNIT/ML (DIALYSIS) IVP PRN (06:08)
[2018-01-13] MEDS: HEPARIN SOD (PORCINE) LOAD IVP PRN (06:09)
[2018-01-13] MEDS: LOPERAMIDE HCL 2 MG CAP PO PRN (06:19)
[2018-01-13] MEDS: DARBEPOETIN ESRD 100 MCG/0.5ML SYR IVP PRN (07:14)
[2018-01-16] MEDS: HEPARIN SOD (PORCINE) LOAD IVP PRN (06:20)
[2018-01-16] MEDS: HEPARIN (PORCINE) 1000 UNIT/ML (DIALYSIS) IVP PRN (06:20)
[2018-01-18] MEDS: HEPARIN SOD (PORCINE) LOAD IVP PRN (06:21)
[2018-01-18] MEDS: HEPARIN (PORCINE) 1000 UNIT/ML (DIALYSIS) IVP PRN (06:21)
[2018-01-18] MEDS: SODIUM FERRIC GLUC 62.5 MG/5ML IVP PRN (08:28)
[2018-01-20] MEDS: HEPARIN SOD (PORCINE) LOAD IVP PRN (06:15)
[2018-01-20] MEDS: HEPARIN (PORCINE) 1000 UNIT/ML (DIALYSIS) IVP PRN (06:15)
[2018-01-20] MEDS: DARBEPOETIN ESRD 25 MCG/ML IVP PRN (07:23)
[2018-01-23] MEDS: HEPARIN (PORCINE) 1000 UNIT/ML (DIALYSIS) IVP PRN (06:13)
[2018-01-23] MEDS: HEPARIN SOD (PORCINE) LOAD IVP PRN (06:13)
[2018-01-25] MEDS: HEPARIN SOD (PORCINE) LOAD IVP PRN (06:19)
[2018-01-25] MEDS: HEPARIN (PORCINE) 1000 UNIT/ML (DIALYSIS) IVP PRN (06:19)
[2018-01-25] MEDS: SODIUM FERRIC GLUC 62.5 MG/5ML IVP PRN (06:54)
[2018-01-27] MEDS: HEPARIN (PORCINE) 1000 UNIT/ML (DIALYSIS) IVP PRN (06:17)
[2018-01-27] MEDS: HEPARIN SOD (PORCINE) LOAD IVP PRN (06:17)
[2018-01-27] MEDS: DARBEPOETIN ESRD 25 MCG/ML IVP PRN (08:01)
[2018-01-30] MEDS: HEPARIN (PORCINE) 1000 UNIT/ML (DIALYSIS) IVP PRN (06:09)
[2018-01-30] MEDS: HEPARIN SOD (PORCINE) LOAD IVP PRN (06:09)
[2018-02-01] MEDS: HEPARIN SOD (PORCINE) LOAD IVP PRN (06:20)
[2018-02-01] MEDS: HEPARIN (PORCINE) 1000 UNIT/ML (DIALYSIS) IVP PRN (06:20)
[2018-02-01] MEDS: SODIUM FERRIC GLUC 62.5 MG/5ML IVP PRN (07:05)
[2018-02-01] MEDS: LOPERAMIDE HCL 2 MG CAP PO PRN (07:05)
[2018-02-01 07:08] LABS: PLATELET COUNT, AUTOMATED 170 K/uL (150-450)
[2018-02-03] MEDS: HEPARIN SOD (PORCINE) LOAD IVP PRN (06:08)
[2018-02-03] MEDS: HEPARIN (PORCINE) 1000 UNIT/ML (DIALYSIS) IVP PRN (06:08)
[2018-02-03] MEDS: DARBEPOETIN ESRD 25 MCG/ML IVP PRN (07:34)
[2018-02-06] MEDS: HEPARIN SOD (PORCINE) LOAD IVP PRN (06:19)
[2018-02-06] MEDS: HEPARIN (PORCINE) 1000 UNIT/ML (DIALYSIS) IVP PRN (06:20)
[2018-02-08] MEDS: HEPARIN (PORCINE) 1000 UNIT/ML (DIALYSIS) IVP PRN (06:28)
[2018-02-08] MEDS: HEPARIN SOD (PORCINE) LOAD IVP PRN (06:29)
[2018-02-08] MEDS: SODIUM FERRIC GLUC 62.5 MG/5ML IVP PRN (07:28)
[2018-02-10] MEDS: HEPARIN (PORCINE) 1000 UNIT/ML (DIALYSIS) IVP PRN (06:19)
[2018-02-10] MEDS: HEPARIN SOD (PORCINE) LOAD IVP PRN (06:19)
[2018-02-10] MEDS: LOPERAMIDE HCL 2 MG CAP PO PRN (06:24)
[2018-02-10] MEDS: DARBEPOETIN ESRD 25 MCG/ML IVP PRN (07:40)
[2018-02-13] MEDS: HEPARIN (PORCINE) 1000 UNIT/ML (DIALYSIS) IVP PRN (06:16)
[2018-02-13] MEDS: HEPARIN SOD (PORCINE) LOAD IVP PRN (06:16)
[2018-02-13] MEDS: LOPERAMIDE HCL 2 MG CAP PO PRN (06:19)
[2018-02-15] MEDS: HEPARIN SOD (PORCINE) LOAD IVP PRN (06:12)
[2018-02-15] MEDS: HEPARIN (PORCINE) 1000 UNIT/ML (DIALYSIS) IVP PRN (06:12)
[2018-02-17] MEDS: HEPARIN SOD (PORCINE) LOAD IVP PRN (06:22)
[2018-02-17] MEDS: HEPARIN (PORCINE) 1000 UNIT/ML (DIALYSIS) IVP PRN (06:22)
[2018-02-17] MEDS: DARBEPOETIN ESRD 25 MCG/ML IVP PRN (07:30)
[2018-02-20] MEDS: HEPARIN SOD (PORCINE) LOAD IVP PRN (06:28)
[2018-02-20] MEDS: HEPARIN (PORCINE) 1000 UNIT/ML (DIALYSIS) IVP PRN (06:28)
[2018-02-22] MEDS: HEPARIN (PORCINE) 1000 UNIT/ML (DIALYSIS) IVP PRN (06:10)
[2018-02-22] MEDS: HEPARIN SOD (PORCINE) LOAD IVP PRN (06:10)
[2018-02-24] MEDS: HEPARIN SOD (PORCINE) LOAD IVP PRN (06:16)
[2018-02-24] MEDS: HEPARIN (PORCINE) 1000 UNIT/ML (DIALYSIS) IVP PRN (06:16)
[2018-02-24] MEDS: DARBEPOETIN ESRD 25 MCG/ML IVP PRN (07:24)
[2018-02-27] MEDS: HEPARIN (PORCINE) 1000 UNIT/ML (DIALYSIS) IVP PRN (06:02)
[2018-02-27] MEDS: HEPARIN SOD (PORCINE) LOAD IVP PRN (06:02)
[2018-03-01] MEDS: HEPARIN (PORCINE) 1000 UNIT/ML (DIALYSIS) IVP PRN (06:20)
[2018-03-01] MEDS: HEPARIN SOD (PORCINE) LOAD IVP PRN (06:20)
[2018-03-01 07:32] LABS: PLATELET COUNT, AUTOMATED 180 K/uL (150-450)
[2018-03-04] MEDS: HEPARIN SOD (PORCINE) LOAD IVP PRN (06:17)
[2018-03-04] MEDS: HEPARIN (PORCINE) 1000 UNIT/ML (DIALYSIS) IVP PRN (06:17)
[2018-03-04] MEDS: DARBEPOETIN ESRD 25 MCG/ML IVP PRN (09:12)
[2018-03-04] MEDS: LOPERAMIDE HCL 2 MG CAP PO PRN (09:49)
[2018-03-06] MEDS: HEPARIN SOD (PORCINE) LOAD IVP PRN (06:06)
[2018-03-06] MEDS: HEPARIN (PORCINE) 1000 UNIT/ML (DIALYSIS) IVP PRN (06:06)
[2018-03-07] MEDS: HEPARIN (PORCINE) 1000 UNIT/ML (DIALYSIS) IVP PRN (05:44)
[2018-03-07] MEDS: HEPARIN SOD (PORCINE) LOAD IVP PRN (05:45)
[2018-03-08] MEDS: HEPARIN (PORCINE) 1000 UNIT/ML (DIALYSIS) IVP PRN (06:13)
[2018-03-08] MEDS: HEPARIN SOD (PORCINE) LOAD IVP PRN (06:14)
[2018-03-08] MEDS ORDERED: MIDO10TA9 PO (18:00)
[2018-03-13] MEDS: HEPARIN SOD (PORCINE) LOAD IVP PRN (06:14)
[2018-03-13] MEDS: HEPARIN (PORCINE) 1000 UNIT/ML (DIALYSIS) IVP PRN (06:14)
[2018-03-15] MEDS: HEPARIN SOD (PORCINE) LOAD IVP PRN (06:32)
[2018-03-15] MEDS: HEPARIN (PORCINE) 1000 UNIT/ML (DIALYSIS) IVP PRN (06:32)
[2018-03-15 08:06] LABS: PLATELET COUNT, AUTOMATED 175 K/uL (150-450)
[2018-03-17] MEDS: HEPARIN SOD (PORCINE) LOAD IVP PRN (06:14)
[2018-03-17] MEDS: HEPARIN (PORCINE) 1000 UNIT/ML (DIALYSIS) IVP PRN (06:14)
[2018-03-17] MEDS: DARBEPOETIN ESRD 25 MCG/ML IVP PRN (07:51)
[2018-03-20] MEDS: HEPARIN SOD (PORCINE) LOAD IVP PRN (06:13)
[2018-03-20] MEDS: HEPARIN (PORCINE) 1000 UNIT/ML (DIALYSIS) IVP PRN (06:14)
[2018-03-22] MEDS: HEPARIN (PORCINE) 1000 UNIT/ML (DIALYSIS) IVP PRN (06:12)
[2018-03-22] MEDS: HEPARIN SOD (PORCINE) LOAD IVP PRN (06:12)
[2018-03-24] MEDS: HEPARIN SOD (PORCINE) LOAD IVP PRN (06:10)
[2018-03-24] MEDS: HEPARIN (PORCINE) 1000 UNIT/ML (DIALYSIS) IVP PRN (06:10)
[2018-03-24] MEDS: DARBEPOETIN ESRD 25 MCG/ML IVP PRN (07:05)
[2018-03-27] MEDS: HEPARIN (PORCINE) 1000 UNIT/ML (DIALYSIS) IVP PRN (06:10)
[2018-03-27] MEDS: HEPARIN SOD (PORCINE) LOAD IVP PRN (06:10)
[2018-03-27] MEDS ORDERED: GABA-549 PO (17:42)
[2018-03-28] MEDS ORDERED: MIDO10TA9 PO (17:00)
[2018-03-29] MEDS: HEPARIN (PORCINE) 1000 UNIT/ML (DIALYSIS) IVP PRN (06:17)
[2018-03-29] MEDS: HEPARIN SOD (PORCINE) LOAD IVP PRN (06:17)
[2018-03-31] MEDS: HEPARIN SOD (PORCINE) LOAD IVP PRN (06:07)
[2018-03-31] MEDS: HEPARIN (PORCINE) 1000 UNIT/ML (DIALYSIS) IVP PRN (06:07)
[2018-03-31] MEDS: DARBEPOETIN ESRD 25 MCG/ML IVP PRN (07:15)
[2018-03-31] MEDS: LOPERAMIDE HCL 2 MG CAP PO PRN (09:02)
[2018-04-02] MEDS: HEPARIN (PORCINE) 1000 UNIT/ML (DIALYSIS) IVP PRN (06:19)
[2018-04-02] MEDS: HEPARIN SOD (PORCINE) LOAD IVP PRN (06:19)
[2018-04-05] MEDS: HEPARIN (PORCINE) 1000 UNIT/ML (DIALYSIS) IVP PRN (06:09)
[2018-04-05] MEDS: HEPARIN SOD (PORCINE) LOAD IVP PRN (06:09)
[2018-04-05] MEDS ORDERED: FLAS1KIT2 (13:55)
[2018-04-05] MEDS ORDERED: FLAS1EAC2 TD (13:55)
[2018-04-05] MEDS ORDERED: GABA-549 PO ×2 (14:01→14:16)
[2018-04-07] MEDS: HEPARIN SOD (PORCINE) LOAD IVP PRN (06:20)
[2018-04-07] MEDS: HEPARIN (PORCINE) 1000 UNIT/ML (DIALYSIS) IVP PRN (06:21)
[2018-04-07] MEDS: DARBEPOETIN ESRD 25 MCG/ML IVP PRN (07:15)
[2018-04-10] MEDS: HEPARIN (PORCINE) 1000 UNIT/ML (DIALYSIS) IVP PRN (06:08)
[2018-04-10] MEDS: HEPARIN SOD (PORCINE) LOAD IVP PRN (06:08)
== END 2018-04-10 18:10 | disposition home or self-care (01) ==
LOC: DIAL 05:59
PROVIDERS: ATTEND Internal Medicine Nephrology
DX: E11.22 Type 2 diabetes mellitus with diabetic chronic kidney disease (principal); N18.6 End stage renal disease; I95.3 Hypotension of hemodialysis; E87.79 Other fluid overload; I25.10 Atherosclerotic heart disease of native coronary artery without angina pectoris; Z95.5 Presence of coronary angioplasty implant and graft; Z99.2 Dependence on renal dialysis; D63.1 Anemia in chronic kidney disease; J44.9 Chronic obstructive pulmonary disease, unspecified; E46 Unspecified protein-calorie malnutrition; E83.51 Hypocalcemia; Z23 Encounter for immunization
CPT/HCPCS: 82040; 82108; 82247; 82306; 82310; 82374; 82465; 82565; 82728; 82947; 83036; 83540; 83550; 83718; 83970; 84075; 84100; 84132; 84295; 84460; 84478; 84520; 85018; 85025; 86580; 86706; 87340; 90999; A4657; A9270; G0008; G0472; J0882; J2916; Q2037; 86803; 90658; 90674

== ENCOUNTER → 2017-04-11 09:26 | Outpatient (RCR) | payer MEDICARE, BC ==
[2016-04-19] MEDS: HEPARIN SOD (PORCINE) LOAD IVP PRN (07:21)
[2016-04-19] MEDS: HEPARIN (PORCINE) 1000 UNIT/ML (DIALYSIS) IVP PRN (07:21)
[2016-04-21] MEDS: HEPARIN (PORCINE) 1000 UNIT/ML (DIALYSIS) IVP PRN (07:23)
[2016-04-21] MEDS: HEPARIN SOD (PORCINE) LOAD IVP PRN (07:23)
[2016-04-21 08:07] LABS: PLATELET COUNT, AUTOMATED 277 K/uL (150-450)
[2016-04-21] MEDS: SODIUM FERRIC GLUC 62.5 MG/5ML IVP PRN (08:45)
[2016-04-23] MEDS: HEPARIN SOD (PORCINE) LOAD IVP PRN (07:29)
[2016-04-23] MEDS: HEPARIN (PORCINE) 1000 UNIT/ML (DIALYSIS) IVP PRN (07:29)
[2016-04-23] MEDS: DARBEPOETIN ESRD 100 MCG/0.5ML 100 MCG, DARBEPOETIN ESRD 25 MCG/ML 50 MCG IVP PRN (07:48)
[2016-04-26] MEDS: HEPARIN (PORCINE) 1000 UNIT/ML (DIALYSIS) IVP PRN (06:26)
[2016-04-26] MEDS: HEPARIN SOD (PORCINE) LOAD IVP PRN (06:27)
[2016-04-28] MEDS: HEPARIN SOD (PORCINE) LOAD IVP PRN (06:35)
[2016-04-28] MEDS: HEPARIN (PORCINE) 1000 UNIT/ML (DIALYSIS) IVP PRN (06:35)
[2016-04-28] MEDS: SODIUM FERRIC GLUC 62.5 MG/5ML IVP PRN (07:29)
[2016-05-12 10:49] VITALS: Ht 172.7 cm; Wt 113.4 kg
[2016-05-12] MEDS: HEPARIN (PORCINE) 1000 UNIT/ML (DIALYSIS) IVP PRN (14:40)
[2016-05-12] MEDS: HEPARIN SOD (PORCINE) LOAD IVP PRN (14:40)
[2016-05-12] MEDS: SODIUM FERRIC GLUC 62.5 MG/5ML IVP PRN (15:44)
[2016-05-14] MEDS: HEPARIN SOD (PORCINE) LOAD IVP PRN (13:55)
[2016-05-14] MEDS: HEPARIN (PORCINE) 1000 UNIT/ML (DIALYSIS) IVP PRN (13:55)
[2016-05-14] MEDS: DARBEPOETIN ESRD 100 MCG/0.5ML 100 MCG, DARBEPOETIN ESRD 25 MCG/ML 50 MCG IVP PRN (15:03)
[2016-05-17] MEDS: HEPARIN (PORCINE) 1000 UNIT/ML (DIALYSIS) IVP PRN (14:50)
[2016-05-17] MEDS: HEPARIN SOD (PORCINE) LOAD IVP PRN (14:51)
[2016-05-19] MEDS: HEPARIN (PORCINE) 1000 UNIT/ML (DIALYSIS) IVP PRN (14:27)
[2016-05-19] MEDS: HEPARIN SOD (PORCINE) LOAD IVP PRN (14:27)
[2016-05-19] MEDS: SODIUM FERRIC GLUC 62.5 MG/5ML IVP PRN (15:01)
[2016-05-21] MEDS: HEPARIN (PORCINE) 1000 UNIT/ML (DIALYSIS) IVP PRN (14:05)
[2016-05-21] MEDS: HEPARIN SOD (PORCINE) LOAD IVP PRN (14:05)
[2016-05-21] MEDS: DARBEPOETIN ESRD 100 MCG/0.5ML 100 MCG, DARBEPOETIN ESRD 25 MCG/ML 50 MCG IVP PRN (14:15)
[2016-05-24] MEDS: HEPARIN (PORCINE) 1000 UNIT/ML (DIALYSIS) IVP PRN (07:09)
[2016-05-24] MEDS: HEPARIN SOD (PORCINE) LOAD IVP PRN (07:10)
[2016-05-26] MEDS: HEPARIN SOD (PORCINE) LOAD IVP PRN (06:59)
[2016-05-26] MEDS: HEPARIN (PORCINE) 1000 UNIT/ML (DIALYSIS) IVP PRN (06:59)
[2016-05-26] MEDS: SODIUM FERRIC GLUC 62.5 MG/5ML IVP PRN (07:34)
[2016-05-26 07:54] LABS: PLATELET COUNT, AUTOMATED 280 K/uL (150-450)
[2016-05-28] MEDS: HEPARIN (PORCINE) 1000 UNIT/ML (DIALYSIS) IVP PRN (06:25)
[2016-05-28] MEDS: HEPARIN SOD (PORCINE) LOAD IVP PRN (06:25)
[2016-05-28] MEDS: DARBEPOETIN ESRD IVP PRN (07:15)
[2016-05-31] MEDS: HEPARIN (PORCINE) 1000 UNIT/ML (DIALYSIS) IVP PRN (06:26)
[2016-05-31] MEDS: HEPARIN SOD (PORCINE) LOAD IVP PRN (06:27)
[2016-06-02] MEDS: HEPARIN (PORCINE) 1000 UNIT/ML (DIALYSIS) IVP PRN (06:29)
[2016-06-02] MEDS: HEPARIN SOD (PORCINE) LOAD IVP PRN (06:30)
[2016-06-02] MEDS: SODIUM FERRIC GLUC 62.5 MG/5ML IVP PRN (06:49)
[2016-06-04] MEDS: HEPARIN SOD (PORCINE) LOAD IVP PRN (06:24)
[2016-06-04] MEDS: HEPARIN (PORCINE) 1000 UNIT/ML (DIALYSIS) IVP PRN (06:24)
[2016-06-04] MEDS: DARBEPOETIN ESRD IVP PRN (06:41)
[2016-06-07] MEDS: HEPARIN SOD (PORCINE) LOAD IVP PRN (06:26)
[2016-06-07] MEDS: HEPARIN (PORCINE) 1000 UNIT/ML (DIALYSIS) IVP PRN (06:26)
[2016-06-09] MEDS: HEPARIN (PORCINE) 1000 UNIT/ML (DIALYSIS) IVP PRN (06:25)
[2016-06-09] MEDS: HEPARIN SOD (PORCINE) LOAD IVP PRN (06:26)
[2016-06-09] MEDS: SODIUM FERRIC GLUC 62.5 MG/5ML IVP PRN (06:38)
[2016-06-11] MEDS: HEPARIN SOD (PORCINE) LOAD IVP PRN (10:41)
[2016-06-11] MEDS: HEPARIN (PORCINE) 1000 UNIT/ML (DIALYSIS) IVP PRN (10:41)
[2016-06-11] MEDS: DARBEPOETIN ESRD 100 MCG/0.5ML SYR IVP PRN (10:54)
[2016-06-14] MEDS: HEPARIN (PORCINE) 1000 UNIT/ML (DIALYSIS) IVP PRN (06:18)
[2016-06-14] MEDS: HEPARIN SOD (PORCINE) LOAD IVP PRN (06:18)
[2016-06-16] MEDS: HEPARIN (PORCINE) 1000 UNIT/ML (DIALYSIS) IVP PRN (06:24)
[2016-06-16] MEDS: HEPARIN SOD (PORCINE) LOAD IVP PRN (06:25)
[2016-06-16] MEDS: SODIUM FERRIC GLUC 62.5 MG/5ML IVP PRN (06:43)
[2016-06-16] MEDS: DIALYSIS ACETAMINOPHEN 325 MG PO PRN (07:48)
[2016-06-18] MEDS: HEPARIN SOD (PORCINE) LOAD IVP PRN (06:33)
[2016-06-18] MEDS: HEPARIN (PORCINE) 1000 UNIT/ML (DIALYSIS) IVP PRN (06:33)
[2016-06-18] MEDS: DARBEPOETIN ESRD 100 MCG/0.5ML SYR IVP PRN (07:10)
[2016-06-21] MEDS: HEPARIN (PORCINE) 1000 UNIT/ML (DIALYSIS) IVP PRN (06:30)
[2016-06-21] MEDS: HEPARIN SOD (PORCINE) LOAD IVP PRN (06:30)
[2016-06-23] MEDS: HEPARIN (PORCINE) 1000 UNIT/ML (DIALYSIS) IVP PRN (06:29)
[2016-06-23] MEDS: HEPARIN SOD (PORCINE) LOAD IVP PRN (06:29)
[2016-06-23] MEDS: SODIUM FERRIC GLUC 62.5 MG/5ML IVP PRN (06:56)
[2016-06-23 07:19] LABS: PLATELET COUNT, AUTOMATED 199 K/uL (150-450)
[2016-06-25] MEDS: HEPARIN (PORCINE) 1000 UNIT/ML (DIALYSIS) IVP PRN (06:26)
[2016-06-25] MEDS: HEPARIN SOD (PORCINE) LOAD IVP PRN (06:26)
[2016-06-25] MEDS: DARBEPOETIN ESRD 100 MCG/0.5ML SYR IVP PRN (06:37)
[2016-06-28] MEDS: HEPARIN (PORCINE) 1000 UNIT/ML (DIALYSIS) IVP PRN (06:24)
[2016-06-28] MEDS: HEPARIN SOD (PORCINE) LOAD IVP PRN (06:24)
[2016-06-30] MEDS: HEPARIN (PORCINE) 1000 UNIT/ML (DIALYSIS) IVP PRN (06:24)
[2016-06-30] MEDS: HEPARIN SOD (PORCINE) LOAD IVP PRN (06:25)
[2016-06-30] MEDS: SODIUM FERRIC GLUC 62.5 MG/5ML IVP PRN (06:48)
[2016-07-02] MEDS: HEPARIN (PORCINE) 1000 UNIT/ML (DIALYSIS) IVP PRN (06:31)
[2016-07-02] MEDS: HEPARIN SOD (PORCINE) LOAD IVP PRN (06:31)
[2016-07-02] MEDS: DARBEPOETIN ESRD 100 MCG/0.5ML SYR IVP PRN (07:14)
[2016-07-05] MEDS: HEPARIN (PORCINE) 1000 UNIT/ML (DIALYSIS) IVP PRN (06:23)
[2016-07-05] MEDS: HEPARIN SOD (PORCINE) LOAD IVP PRN (06:23)
[2016-07-07] MEDS: HEPARIN SOD (PORCINE) LOAD IVP PRN (06:30)
[2016-07-07] MEDS: HEPARIN (PORCINE) 1000 UNIT/ML (DIALYSIS) IVP PRN (06:30)
[2016-07-07] MEDS: SODIUM FERRIC GLUC 62.5 MG/5ML IVP PRN (06:51)
[2016-07-09] MEDS: HEPARIN (PORCINE) 1000 UNIT/ML (DIALYSIS) IVP PRN (06:30)
[2016-07-09] MEDS: HEPARIN SOD (PORCINE) LOAD IVP PRN (06:30)
[2016-07-09] MEDS: DARBEPOETIN ESRD 100 MCG/0.5ML SYR IVP PRN (07:22)
[2016-07-12] MEDS: HEPARIN (PORCINE) 1000 UNIT/ML (DIALYSIS) IVP PRN (06:36)
[2016-07-12] MEDS: HEPARIN SOD (PORCINE) LOAD IVP PRN (06:37)
[2016-07-19] MEDS: HEPARIN SOD (PORCINE) LOAD IVP PRN (06:26)
[2016-07-19] MEDS: HEPARIN (PORCINE) 1000 UNIT/ML (DIALYSIS) IVP PRN (06:26)
[2016-07-21] MEDS: HEPARIN (PORCINE) 1000 UNIT/ML (DIALYSIS) IVP PRN (06:30)
[2016-07-21] MEDS: HEPARIN SOD (PORCINE) LOAD IVP PRN (06:30)
[2016-07-21] MEDS: SODIUM FERRIC GLUC 62.5 MG/5ML IVP PRN (06:51)
[2016-07-23] MEDS: HEPARIN (PORCINE) 1000 UNIT/ML (DIALYSIS) IVP PRN (06:24)
[2016-07-23] MEDS: HEPARIN SOD (PORCINE) LOAD IVP PRN (06:24)
[2016-07-23] MEDS: DARBEPOETIN ESRD 100 MCG/0.5ML SYR IVP PRN (08:13)
[2016-07-26] MEDS: HEPARIN (PORCINE) 1000 UNIT/ML (DIALYSIS) IVP PRN (06:23)
[2016-07-26] MEDS: HEPARIN SOD (PORCINE) LOAD IVP PRN (06:23)
[2016-07-28] MEDS: HEPARIN (PORCINE) 1000 UNIT/ML (DIALYSIS) IVP PRN (06:41)
[2016-07-28] MEDS: HEPARIN SOD (PORCINE) LOAD IVP PRN (06:42)
[2016-07-28] MEDS: SODIUM FERRIC GLUC 62.5 MG/5ML IVP PRN (07:43)
[2016-07-28 08:02] LABS: PLATELET COUNT, AUTOMATED 233 K/uL (150-450)
[2016-07-30] MEDS: HEPARIN SOD (PORCINE) LOAD IVP PRN (06:33)
[2016-07-30] MEDS: HEPARIN (PORCINE) 1000 UNIT/ML (DIALYSIS) IVP PRN (06:33)
[2016-07-30] MEDS: DARBEPOETIN ESRD 100 MCG/0.5ML SYR IVP PRN (06:47)
[2016-08-02] MEDS: HEPARIN SOD (PORCINE) LOAD IVP PRN (06:24)
[2016-08-02] MEDS: HEPARIN (PORCINE) 1000 UNIT/ML (DIALYSIS) IVP PRN (06:24)
[2016-08-04] MEDS: HEPARIN SOD (PORCINE) LOAD IVP PRN (06:21)
[2016-08-04] MEDS: HEPARIN (PORCINE) 1000 UNIT/ML (DIALYSIS) IVP PRN (06:21)
[2016-08-04] MEDS: SODIUM FERRIC GLUC 62.5 MG/5ML IVP PRN (06:44)
[2016-08-06] MEDS: HEPARIN (PORCINE) 1000 UNIT/ML (DIALYSIS) IVP PRN (06:18)
[2016-08-06] MEDS: HEPARIN SOD (PORCINE) LOAD IVP PRN (06:19)
[2016-08-06] MEDS: SODIUM FERRIC GLUC 62.5 MG/5ML IVP PRN (06:29)
[2016-08-06] MEDS: DARBEPOETIN ESRD 100 MCG/0.5ML SYR IVP PRN (06:29)
[2016-08-09] MEDS: HEPARIN SOD (PORCINE) LOAD IVP PRN (06:24)
[2016-08-09] MEDS: HEPARIN (PORCINE) 1000 UNIT/ML (DIALYSIS) IVP PRN (06:24)
[2016-08-09] MEDS: SODIUM FERRIC GLUC 62.5 MG/5ML IVP PRN (07:10)
[2016-08-11] MEDS: HEPARIN (PORCINE) 1000 UNIT/ML (DIALYSIS) IVP PRN (06:32)
[2016-08-11] MEDS: HEPARIN SOD (PORCINE) LOAD IVP PRN (06:33)
[2016-08-11] MEDS: SODIUM FERRIC GLUC 62.5 MG/5ML IVP PRN (06:53)
[2016-08-13] MEDS: HEPARIN (PORCINE) 1000 UNIT/ML (DIALYSIS) IVP PRN (06:23)
[2016-08-13] MEDS: HEPARIN SOD (PORCINE) LOAD IVP PRN (06:24)
[2016-08-13] MEDS: SODIUM FERRIC GLUC 62.5 MG/5ML IVP PRN (06:52)
[2016-08-16] MEDS: HEPARIN (PORCINE) 1000 UNIT/ML (DIALYSIS) IVP PRN (06:31)
[2016-08-16] MEDS: HEPARIN SOD (PORCINE) LOAD IVP PRN (06:31)
[2016-08-18] MEDS: HEPARIN (PORCINE) 1000 UNIT/ML (DIALYSIS) IVP PRN (06:30)
[2016-08-18] MEDS: HEPARIN SOD (PORCINE) LOAD IVP PRN (06:31)
[2016-08-18] MEDS: SODIUM FERRIC GLUC 62.5 MG/5ML IVP PRN (06:46)
[2016-08-18 07:25] LABS: PLATELET COUNT, AUTOMATED 198 K/uL (150-450)
[2016-08-20] MEDS: HEPARIN SOD (PORCINE) LOAD IVP PRN (06:16)
[2016-08-20] MEDS: HEPARIN (PORCINE) 1000 UNIT/ML (DIALYSIS) IVP PRN (06:16)
[2016-08-20] MEDS: DARBEPOETIN ESRD 25 MCG/ML IVP PRN (06:34)
[2016-08-23] MEDS: HEPARIN SOD (PORCINE) LOAD IVP PRN (06:18)
[2016-08-23] MEDS: HEPARIN (PORCINE) 1000 UNIT/ML (DIALYSIS) IVP PRN (06:18)
[2016-08-30] MEDS: HEPARIN (PORCINE) 1000 UNIT/ML (DIALYSIS) IVP PRN (06:17)
[2016-08-30] MEDS: HEPARIN SOD (PORCINE) LOAD IVP PRN (06:17)
[2016-09-01] MEDS: HEPARIN SOD (PORCINE) LOAD IVP PRN (06:31)
[2016-09-01] MEDS: HEPARIN (PORCINE) 1000 UNIT/ML (DIALYSIS) IVP PRN (06:31)
[2016-09-01 07:22] LABS: PLATELET COUNT, AUTOMATED 189 K/uL (150-450)
[2016-09-01] MEDS: SODIUM FERRIC GLUC 62.5 MG/5ML IVP PRN (07:22)
[2016-09-03] MEDS: HEPARIN (PORCINE) 1000 UNIT/ML (DIALYSIS) IVP PRN (06:20)
[2016-09-03] MEDS: HEPARIN SOD (PORCINE) LOAD IVP PRN (06:20)
[2016-09-03] MEDS: DARBEPOETIN ESRD 25 MCG/ML IVP PRN (06:40)
[2016-09-06] MEDS: HEPARIN SOD (PORCINE) LOAD IVP PRN (06:23)
[2016-09-06] MEDS: HEPARIN (PORCINE) 1000 UNIT/ML (DIALYSIS) IVP PRN (06:23)
[2016-09-06] MEDS: DIALYSIS ACETAMINOPHEN 325 MG PO PRN (07:03)
[2016-09-08] MEDS: HEPARIN (PORCINE) 1000 UNIT/ML (DIALYSIS) IVP PRN (06:25)
[2016-09-08] MEDS: HEPARIN SOD (PORCINE) LOAD IVP PRN (06:25)
[2016-09-08] MEDS: SODIUM FERRIC GLUC 62.5 MG/5ML IVP PRN (06:38)
[2016-09-08] MEDS: DIALYSIS ACETAMINOPHEN 325 MG PO PRN (06:52)
[2016-09-10] MEDS: HEPARIN SOD (PORCINE) LOAD IVP PRN (06:20)
[2016-09-10] MEDS: HEPARIN (PORCINE) 1000 UNIT/ML (DIALYSIS) IVP PRN (06:20)
[2016-09-10] MEDS: DARBEPOETIN ESRD 25 MCG/ML IVP PRN (06:34)
[2016-09-13] MEDS: HEPARIN (PORCINE) 1000 UNIT/ML (DIALYSIS) IVP PRN (06:22)
[2016-09-13] MEDS: HEPARIN SOD (PORCINE) LOAD IVP PRN (06:23)
[2016-09-15] MEDS: HEPARIN (PORCINE) 1000 UNIT/ML (DIALYSIS) IVP PRN (06:22)
[2016-09-15] MEDS: HEPARIN SOD (PORCINE) LOAD IVP PRN (06:22)
[2016-09-15] MEDS: SODIUM FERRIC GLUC 62.5 MG/5ML IVP PRN (06:51)
[2016-09-17] MEDS: HEPARIN (PORCINE) 1000 UNIT/ML (DIALYSIS) IVP PRN (06:23)
[2016-09-17] MEDS: HEPARIN SOD (PORCINE) LOAD IVP PRN (06:24)
[2016-09-17] MEDS: DARBEPOETIN ESRD 100 MCG/0.5ML SYR IVP PRN (07:03)
[2016-09-20] MEDS: HEPARIN (PORCINE) 1000 UNIT/ML (DIALYSIS) IVP PRN (06:23)
[2016-09-20] MEDS: HEPARIN SOD (PORCINE) LOAD IVP PRN (06:23)
[2016-09-22] MEDS: HEPARIN (PORCINE) 1000 UNIT/ML (DIALYSIS) IVP PRN (06:22)
[2016-09-22] MEDS: HEPARIN SOD (PORCINE) LOAD IVP PRN (06:22)
[2016-09-22] MEDS: SODIUM FERRIC GLUC 62.5 MG/5ML IVP PRN (06:43)
[2016-09-24] MEDS: HEPARIN (PORCINE) 1000 UNIT/ML (DIALYSIS) IVP PRN (06:10)
[2016-09-24] MEDS: HEPARIN SOD (PORCINE) LOAD IVP PRN (06:10)
[2016-09-24] MEDS: DARBEPOETIN ESRD 100 MCG/0.5ML SYR IVP PRN (06:23)
[2016-09-27] MEDS: HEPARIN SOD (PORCINE) LOAD IVP PRN (06:30)
[2016-09-27] MEDS: HEPARIN (PORCINE) 1000 UNIT/ML (DIALYSIS) IVP PRN (06:30)
[2016-09-29] MEDS: HEPARIN (PORCINE) 1000 UNIT/ML (DIALYSIS) IVP PRN (06:35)
[2016-09-29] MEDS: HEPARIN SOD (PORCINE) LOAD IVP PRN (06:35)
[2016-09-29] MEDS: SODIUM FERRIC GLUC 62.5 MG/5ML IVP PRN (06:52)
[2016-09-29 07:34] LABS: PLATELET COUNT, AUTOMATED 223 K/uL (150-450)
[2016-10-01] MEDS: HEPARIN (PORCINE) 1000 UNIT/ML (DIALYSIS) IVP PRN (06:13)
[2016-10-01] MEDS: HEPARIN SOD (PORCINE) LOAD IVP PRN (06:13)
[2016-10-01] MEDS: DARBEPOETIN ESRD 25 MCG/ML IVP PRN (06:32)
[2016-10-04] MEDS: HEPARIN SOD (PORCINE) LOAD IVP PRN (06:26)
[2016-10-04] MEDS: HEPARIN (PORCINE) 1000 UNIT/ML (DIALYSIS) IVP PRN (06:26)
[2016-10-06] MEDS: HEPARIN (PORCINE) 1000 UNIT/ML (DIALYSIS) IVP PRN (06:24)
[2016-10-06] MEDS: HEPARIN SOD (PORCINE) LOAD IVP PRN (06:25)
[2016-10-06] MEDS: SODIUM FERRIC GLUC 62.5 MG/5ML IVP PRN (06:44)
[2016-10-08] MEDS: HEPARIN (PORCINE) 1000 UNIT/ML (DIALYSIS) IVP PRN (06:20)
[2016-10-08] MEDS: HEPARIN SOD (PORCINE) LOAD IVP PRN (06:20)
[2016-10-08] MEDS: DARBEPOETIN ESRD 25 MCG/ML IVP PRN (06:48)
[2016-10-11] MEDS: HEPARIN (PORCINE) 1000 UNIT/ML (DIALYSIS) IVP PRN (06:34)
[2016-10-11] MEDS: HEPARIN SOD (PORCINE) LOAD IVP PRN (06:34)
[2016-10-13] MEDS: HEPARIN (PORCINE) 1000 UNIT/ML (DIALYSIS) IVP PRN (06:21)
[2016-10-13] MEDS: HEPARIN SOD (PORCINE) LOAD IVP PRN (06:21)
[2016-10-13] MEDS: SODIUM FERRIC GLUC 62.5 MG/5ML IVP PRN (07:05)
[2016-10-15] MEDS: HEPARIN (PORCINE) 1000 UNIT/ML (DIALYSIS) IVP PRN (06:18)
[2016-10-15] MEDS: HEPARIN SOD (PORCINE) LOAD IVP PRN (06:18)
[2016-10-15] MEDS: DARBEPOETIN ESRD 25 MCG/ML IVP PRN (06:43)
[2016-10-29 06:42] LABS: PLATELET COUNT, AUTOMATED 174 K/uL (150-450)
[2016-10-29] MEDS: DARBEPOETIN ESRD 25 MCG/ML IVP PRN (09:05)
[2016-11-01] MEDS: HEPARIN SOD (PORCINE) LOAD IVP PRN (06:32)
[2016-11-01] MEDS: HEPARIN (PORCINE) 1000 UNIT/ML (DIALYSIS) IVP PRN (06:32)
[2016-11-03] MEDS: HEPARIN SOD (PORCINE) LOAD IVP PRN (06:32)
[2016-11-03] MEDS: HEPARIN (PORCINE) 1000 UNIT/ML (DIALYSIS) IVP PRN (06:32)
[2016-11-03] MEDS: SODIUM FERRIC GLUC 62.5 MG/5ML IVP PRN (06:53)
[2016-11-05] MEDS: HEPARIN SOD (PORCINE) LOAD IVP PRN (06:42)
[2016-11-05] MEDS: HEPARIN (PORCINE) 1000 UNIT/ML (DIALYSIS) IVP PRN (06:42)
[2016-11-05] MEDS: DARBEPOETIN ESRD 25 MCG/ML IVP PRN (07:42)
[2016-11-08] MEDS: HEPARIN SOD (PORCINE) LOAD IVP PRN (06:21)
[2016-11-08] MEDS: HEPARIN (PORCINE) 1000 UNIT/ML (DIALYSIS) IVP PRN (06:21)
[2016-11-10] MEDS: HEPARIN (PORCINE) 1000 UNIT/ML (DIALYSIS) IVP PRN (06:32)
[2016-11-10] MEDS: HEPARIN SOD (PORCINE) LOAD IVP PRN (06:33)
[2016-11-10] MEDS: SODIUM FERRIC GLUC 62.5 MG/5ML IVP PRN (07:59)
[2016-11-12] MEDS: HEPARIN (PORCINE) 1000 UNIT/ML (DIALYSIS) IVP PRN (06:19)
[2016-11-12] MEDS: HEPARIN SOD (PORCINE) LOAD IVP PRN (06:19)
[2016-11-12] MEDS: DARBEPOETIN ESRD 25 MCG/ML IVP PRN (07:31)
[2016-11-15] MEDS: HEPARIN (PORCINE) 1000 UNIT/ML (DIALYSIS) IVP PRN (06:28)
[2016-11-15] MEDS: HEPARIN SOD (PORCINE) LOAD IVP PRN (06:28)
[2016-11-17] MEDS: HEPARIN (PORCINE) 1000 UNIT/ML (DIALYSIS) IVP PRN (06:21)
[2016-11-17] MEDS: HEPARIN SOD (PORCINE) LOAD IVP PRN (06:21)
[2016-11-17] MEDS: SODIUM FERRIC GLUC 62.5 MG/5ML IVP PRN (07:29)
[2016-11-19] MEDS: HEPARIN (PORCINE) 1000 UNIT/ML (DIALYSIS) IVP PRN (06:23)
[2016-11-19] MEDS: HEPARIN SOD (PORCINE) LOAD IVP PRN (06:23)
[2016-11-19] MEDS: DARBEPOETIN ESRD 25 MCG/ML IVP PRN (06:38)
[2016-11-22] MEDS: HEPARIN (PORCINE) 1000 UNIT/ML (DIALYSIS) IVP PRN (06:20)
[2016-11-22] MEDS: HEPARIN SOD (PORCINE) LOAD IVP PRN (06:21)
[2016-11-24] MEDS: HEPARIN SOD (PORCINE) LOAD IVP PRN (06:29)
[2016-11-24] MEDS: HEPARIN (PORCINE) 1000 UNIT/ML (DIALYSIS) IVP PRN (06:29)
[2016-11-24] MEDS: SODIUM FERRIC GLUC 62.5 MG/5ML IVP PRN (07:51)
[2016-11-24 08:01] LABS: PLATELET COUNT, AUTOMATED 157 K/uL (150-450)
[2016-11-26] MEDS: HEPARIN (PORCINE) 1000 UNIT/ML (DIALYSIS) IVP PRN (06:18)
[2016-11-26] MEDS: HEPARIN SOD (PORCINE) LOAD IVP PRN (06:18)
[2016-11-26] MEDS: DARBEPOETIN ESRD 25 MCG/ML IVP PRN (06:46)
[2016-11-29] MEDS: HEPARIN SOD (PORCINE) LOAD IVP PRN (06:17)
[2016-11-29] MEDS: HEPARIN (PORCINE) 1000 UNIT/ML (DIALYSIS) IVP PRN (06:17)
[2016-11-29] MEDS: DIALYSIS ACETAMINOPHEN 325 MG PO PRN (09:55)
[2016-12-01] MEDS: HEPARIN SOD (PORCINE) LOAD IVP PRN (06:38)
[2016-12-01] MEDS: HEPARIN (PORCINE) 1000 UNIT/ML (DIALYSIS) IVP PRN (06:38)
[2016-12-01] MEDS: SODIUM FERRIC GLUC 62.5 MG/5ML IVP PRN (07:12)
[2016-12-03] MEDS: HEPARIN SOD (PORCINE) LOAD IVP PRN (06:19)
[2016-12-03] MEDS: HEPARIN (PORCINE) 1000 UNIT/ML (DIALYSIS) IVP PRN (06:19)
[2016-12-03] MEDS: DARBEPOETIN ESRD 25 MCG/ML IVP PRN (07:25)
[2016-12-06] MEDS: HEPARIN (PORCINE) 1000 UNIT/ML (DIALYSIS) IVP PRN (06:23)
[2016-12-06] MEDS: HEPARIN SOD (PORCINE) LOAD IVP PRN (06:23)
[2016-12-07] MEDS: HEPARIN SOD (PORCINE) LOAD IVP PRN (08:01)
[2016-12-07] MEDS: HEPARIN (PORCINE) 1000 UNIT/ML (DIALYSIS) IVP PRN (08:01)
[2016-12-08] MEDS: HEPARIN (PORCINE) 1000 UNIT/ML (DIALYSIS) IVP PRN (06:30)
[2016-12-08] MEDS: HEPARIN SOD (PORCINE) LOAD IVP PRN (06:30)
[2016-12-08] MEDS: SODIUM FERRIC GLUC 62.5 MG/5ML IVP PRN (08:06)
[2016-12-10] MEDS: HEPARIN (PORCINE) 1000 UNIT/ML (DIALYSIS) IVP PRN (06:22)
[2016-12-10] MEDS: HEPARIN SOD (PORCINE) LOAD IVP PRN (06:22)
[2016-12-13] MEDS: HEPARIN (PORCINE) 1000 UNIT/ML (DIALYSIS) IVP PRN (06:28)
[2016-12-13] MEDS: HEPARIN SOD (PORCINE) LOAD IVP PRN (06:28)
[2016-12-15] MEDS: HEPARIN (PORCINE) 1000 UNIT/ML (DIALYSIS) IVP PRN (06:28)
[2016-12-15] MEDS: HEPARIN SOD (PORCINE) LOAD IVP PRN (06:28)
[2016-12-15] MEDS: SODIUM FERRIC GLUC 62.5 MG/5ML IVP PRN (07:33)
[2016-12-17] MEDS: HEPARIN SOD (PORCINE) LOAD IVP PRN (06:20)
[2016-12-17] MEDS: HEPARIN (PORCINE) 1000 UNIT/ML (DIALYSIS) IVP PRN (06:20)
[2016-12-20] MEDS: HEPARIN (PORCINE) 1000 UNIT/ML (DIALYSIS) IVP PRN (06:19)
[2016-12-20] MEDS: HEPARIN SOD (PORCINE) LOAD IVP PRN (06:19)
[2016-12-22] MEDS: HEPARIN SOD (PORCINE) LOAD IVP PRN (06:17)
[2016-12-22] MEDS: HEPARIN (PORCINE) 1000 UNIT/ML (DIALYSIS) IVP PRN (06:18)
[2016-12-22] MEDS: SODIUM FERRIC GLUC 62.5 MG/5ML IVP PRN (06:39)
[2016-12-22 07:23] LABS: PLATELET COUNT, AUTOMATED 202 K/uL (150-450)
[2016-12-24] MEDS: HEPARIN (PORCINE) 1000 UNIT/ML (DIALYSIS) IVP PRN (06:12)
[2016-12-24] MEDS: HEPARIN SOD (PORCINE) LOAD IVP PRN (06:13)
[2016-12-27] MEDS: HEPARIN (PORCINE) 1000 UNIT/ML (DIALYSIS) IVP PRN (06:24)
[2016-12-27] MEDS: HEPARIN SOD (PORCINE) LOAD IVP PRN (06:25)
[2016-12-29] MEDS: HEPARIN (PORCINE) 1000 UNIT/ML (DIALYSIS) IVP PRN (06:26)
[2016-12-29] MEDS: HEPARIN SOD (PORCINE) LOAD IVP PRN (06:26)
[2016-12-29] MEDS: SODIUM FERRIC GLUC 62.5 MG/5ML IVP PRN (06:48)
[2016-12-31] MEDS: HEPARIN SOD (PORCINE) LOAD IVP PRN (06:15)
[2016-12-31] MEDS: HEPARIN (PORCINE) 1000 UNIT/ML (DIALYSIS) IVP PRN (06:16)
[2017-01-03] MEDS: HEPARIN (PORCINE) 1000 UNIT/ML (DIALYSIS) IVP PRN (06:20)
[2017-01-03] MEDS: HEPARIN SOD (PORCINE) LOAD IVP PRN (06:20)
[2017-01-05] MEDS: HEPARIN SOD (PORCINE) LOAD IVP PRN (06:30)
[2017-01-05] MEDS: HEPARIN (PORCINE) 1000 UNIT/ML (DIALYSIS) IVP PRN (06:30)
[2017-01-05] MEDS: SODIUM FERRIC GLUC 62.5 MG/5ML IVP PRN (06:53)
[2017-01-07] MEDS: HEPARIN (PORCINE) 1000 UNIT/ML (DIALYSIS) IVP PRN (06:20)
[2017-01-07] MEDS: HEPARIN SOD (PORCINE) LOAD IVP PRN (06:21)
[2017-01-10] MEDS: HEPARIN SOD (PORCINE) LOAD IVP PRN (06:21)
[2017-01-10] MEDS: HEPARIN (PORCINE) 1000 UNIT/ML (DIALYSIS) IVP PRN (06:21)
[2017-01-12] MEDS: HEPARIN SOD (PORCINE) LOAD IVP PRN (06:20)
[2017-01-12] MEDS: HEPARIN (PORCINE) 1000 UNIT/ML (DIALYSIS) IVP PRN (06:21)
[2017-01-12] MEDS: SODIUM FERRIC GLUC 62.5 MG/5ML IVP PRN (07:18)
[2017-01-14] MEDS: HEPARIN SOD (PORCINE) LOAD IVP PRN (06:11)
[2017-01-14] MEDS: HEPARIN (PORCINE) 1000 UNIT/ML (DIALYSIS) IVP PRN (06:11)
[2017-01-17] MEDS: HEPARIN SOD (PORCINE) LOAD IVP PRN (06:27)
[2017-01-17] MEDS: HEPARIN (PORCINE) 1000 UNIT/ML (DIALYSIS) IVP PRN (06:28)
[2017-01-19] MEDS: HEPARIN (PORCINE) 1000 UNIT/ML (DIALYSIS) IVP PRN (06:18)
[2017-01-19] MEDS: HEPARIN SOD (PORCINE) LOAD IVP PRN (06:18)
[2017-01-19] MEDS: SODIUM FERRIC GLUC 62.5 MG/5ML IVP PRN (06:34)
[2017-01-21] MEDS: HEPARIN SOD (PORCINE) LOAD IVP PRN (06:12)
[2017-01-21] MEDS: HEPARIN (PORCINE) 1000 UNIT/ML (DIALYSIS) IVP PRN (06:12)
[2017-01-24] MEDS: HEPARIN (PORCINE) 1000 UNIT/ML (DIALYSIS) IVP PRN (06:15)
[2017-01-24] MEDS: HEPARIN SOD (PORCINE) LOAD IVP PRN (06:15)
[2017-01-26] MEDS: HEPARIN SOD (PORCINE) LOAD IVP PRN (06:26)
[2017-01-26] MEDS: HEPARIN (PORCINE) 1000 UNIT/ML (DIALYSIS) IVP PRN (06:26)
[2017-01-26] MEDS: SODIUM FERRIC GLUC 62.5 MG/5ML IVP PRN (07:06)
[2017-01-26 07:36] LABS: PLATELET COUNT, AUTOMATED 168 K/uL (150-450)
[2017-01-28] MEDS: HEPARIN SOD (PORCINE) LOAD IVP PRN (06:12)
[2017-01-28] MEDS: HEPARIN (PORCINE) 1000 UNIT/ML (DIALYSIS) IVP PRN (06:12)
[2017-01-28] MEDS: DARBEPOETIN ESRD 25 MCG/ML IVP PRN (06:28)
[2017-01-31] MEDS: HEPARIN (PORCINE) 1000 UNIT/ML (DIALYSIS) IVP PRN (06:17)
[2017-01-31] MEDS: HEPARIN SOD (PORCINE) LOAD IVP PRN (06:17)
[2017-02-01] MEDS: HEPARIN SOD (PORCINE) LOAD IVP PRN (07:00)
[2017-02-01] MEDS: HEPARIN (PORCINE) 1000 UNIT/ML (DIALYSIS) IVP PRN (07:00)
[2017-02-02] MEDS: HEPARIN (PORCINE) 1000 UNIT/ML (DIALYSIS) IVP PRN (06:20)
[2017-02-02] MEDS: HEPARIN SOD (PORCINE) LOAD IVP PRN (06:21)
[2017-02-02] MEDS: SODIUM FERRIC GLUC 62.5 MG/5ML IVP PRN (06:40)
[2017-02-04] MEDS: HEPARIN (PORCINE) 1000 UNIT/ML (DIALYSIS) IVP PRN (06:28)
[2017-02-04] MEDS: HEPARIN SOD (PORCINE) LOAD IVP PRN (06:29)
[2017-02-04] MEDS: DARBEPOETIN ESRD 25 MCG/ML IVP PRN (06:57)
[2017-02-07] MEDS: HEPARIN SOD (PORCINE) LOAD IVP PRN (06:21)
[2017-02-07] MEDS: HEPARIN (PORCINE) 1000 UNIT/ML (DIALYSIS) IVP PRN (06:21)
[2017-02-09] MEDS: HEPARIN (PORCINE) 1000 UNIT/ML (DIALYSIS) IVP PRN (06:35)
[2017-02-09] MEDS: HEPARIN SOD (PORCINE) LOAD IVP PRN (06:36)
[2017-02-09] MEDS: SODIUM FERRIC GLUC 62.5 MG/5ML IVP PRN (07:44)
[2017-02-10] MEDS: HEPARIN SOD (PORCINE) LOAD IVP PRN (07:35)
[2017-02-10] MEDS: HEPARIN (PORCINE) 1000 UNIT/ML (DIALYSIS) IVP PRN (07:35)
[2017-02-11] MEDS: HEPARIN (PORCINE) 1000 UNIT/ML (DIALYSIS) IVP PRN (06:16)
[2017-02-11] MEDS: HEPARIN SOD (PORCINE) LOAD IVP PRN (06:17)
[2017-02-11] MEDS: DARBEPOETIN ESRD 40MCG/ML IVP PRN (06:32)
[2017-02-11] MEDS: DARBEPOETIN ESRD 25 MCG/ML IVP PRN (06:32)
[2017-02-14] MEDS: HEPARIN (PORCINE) 1000 UNIT/ML (DIALYSIS) IVP PRN (06:20)
[2017-02-14] MEDS: HEPARIN SOD (PORCINE) LOAD IVP PRN (06:20)
[2017-02-16] MEDS: HEPARIN (PORCINE) 1000 UNIT/ML (DIALYSIS) IVP PRN (06:08)
[2017-02-16] MEDS: HEPARIN SOD (PORCINE) LOAD IVP PRN (06:08)
[2017-02-16] MEDS: SODIUM FERRIC GLUC 62.5 MG/5ML IVP PRN (06:38)
[2017-02-18] MEDS: HEPARIN (PORCINE) 1000 UNIT/ML (DIALYSIS) IVP PRN (06:20)
[2017-02-18] MEDS: HEPARIN SOD (PORCINE) LOAD IVP PRN (06:20)
[2017-02-18] MEDS: DARBEPOETIN ESRD 40MCG/ML IVP PRN (07:29)
[2017-02-18] MEDS: DARBEPOETIN ESRD 25 MCG/ML IVP PRN (07:29)
[2017-02-21] MEDS: HEPARIN (PORCINE) 1000 UNIT/ML (DIALYSIS) IVP PRN (06:13)
[2017-02-21] MEDS: HEPARIN SOD (PORCINE) LOAD IVP PRN (06:14)
[2017-02-22] MEDS: HEPARIN SOD (PORCINE) LOAD IVP PRN (06:56)
[2017-02-22] MEDS: HEPARIN (PORCINE) 1000 UNIT/ML (DIALYSIS) IVP PRN (06:56)
[2017-02-23] MEDS: HEPARIN (PORCINE) 1000 UNIT/ML (DIALYSIS) IVP PRN (06:20)
[2017-02-23] MEDS: HEPARIN SOD (PORCINE) LOAD IVP PRN (06:20)
[2017-02-23 07:26] LABS: PLATELET COUNT, AUTOMATED 205 K/uL (150-450)
[2017-02-23] MEDS: SODIUM FERRIC GLUC 62.5 MG/5ML IVP PRN (07:29)
[2017-02-25] MEDS: HEPARIN (PORCINE) 1000 UNIT/ML (DIALYSIS) IVP PRN (06:21)
[2017-02-25] MEDS: HEPARIN SOD (PORCINE) LOAD IVP PRN (06:21)
[2017-02-25] MEDS: DARBEPOETIN ESRD 25 MCG/ML IVP PRN (07:23)
[2017-02-28] MEDS: HEPARIN (PORCINE) 1000 UNIT/ML (DIALYSIS) IVP PRN (06:10)
[2017-02-28] MEDS: HEPARIN SOD (PORCINE) LOAD IVP PRN (06:10)
[2017-03-02] MEDS: SODIUM FERRIC GLUC 62.5 MG/5ML IVP PRN (07:16)
[2017-03-07] MEDS: HEPARIN SOD (PORCINE) LOAD IVP PRN (06:12)
[2017-03-07] MEDS: HEPARIN (PORCINE) 1000 UNIT/ML (DIALYSIS) IVP PRN (06:12)
[2017-03-09] MEDS: HEPARIN SOD (PORCINE) LOAD IVP PRN (06:23)
[2017-03-09] MEDS: HEPARIN (PORCINE) 1000 UNIT/ML (DIALYSIS) IVP PRN (06:23)
[2017-03-09] MEDS: SODIUM FERRIC GLUC 62.5 MG/5ML IVP PRN (07:07)
[2017-03-11] MEDS: HEPARIN SOD (PORCINE) LOAD IVP PRN (06:13)
[2017-03-11] MEDS: HEPARIN (PORCINE) 1000 UNIT/ML (DIALYSIS) IVP PRN (06:13)
[2017-03-11] MEDS: DARBEPOETIN ESRD 40MCG/ML IVP PRN (06:41)
[2017-03-11] MEDS: DARBEPOETIN ESRD 25 MCG/ML IVP PRN (06:41)
[2017-03-14] MEDS: HEPARIN SOD (PORCINE) LOAD IVP PRN (06:27)
[2017-03-14] MEDS: HEPARIN (PORCINE) 1000 UNIT/ML (DIALYSIS) IVP PRN (06:27)
[2017-03-16] MEDS: HEPARIN SOD (PORCINE) LOAD IVP PRN (06:19)
[2017-03-16] MEDS: HEPARIN (PORCINE) 1000 UNIT/ML (DIALYSIS) IVP PRN (06:19)
[2017-03-16] MEDS: SODIUM FERRIC GLUC 62.5 MG/5ML IVP PRN (06:32)
[2017-03-16 06:57] LABS: PLATELET COUNT, AUTOMATED 185 K/uL (150-450)
[2017-03-18] MEDS: HEPARIN (PORCINE) 1000 UNIT/ML (DIALYSIS) IVP PRN (06:12)
[2017-03-18] MEDS: HEPARIN SOD (PORCINE) LOAD IVP PRN (06:13)
[2017-03-18] MEDS: DARBEPOETIN ESRD 25 MCG/ML IVP PRN (07:08)
[2017-03-21] MEDS: HEPARIN SOD (PORCINE) LOAD IVP PRN (12:05)
[2017-03-21] MEDS: HEPARIN (PORCINE) 1000 UNIT/ML (DIALYSIS) IVP PRN (12:05)
[2017-03-23] MEDS: HEPARIN (PORCINE) 1000 UNIT/ML (DIALYSIS) IVP PRN (06:24)
[2017-03-23] MEDS: HEPARIN SOD (PORCINE) LOAD IVP PRN (06:24)
[2017-03-23] MEDS: SODIUM FERRIC GLUC 62.5 MG/5ML IVP PRN (07:16)
[2017-03-25] MEDS: HEPARIN (PORCINE) 1000 UNIT/ML (DIALYSIS) IVP PRN (06:20)
[2017-03-25] MEDS: HEPARIN SOD (PORCINE) LOAD IVP PRN (06:20)
[2017-03-25] MEDS: DARBEPOETIN ESRD 25 MCG/ML IVP PRN (06:34)
[2017-03-28] MEDS: HEPARIN SOD (PORCINE) LOAD IVP PRN (06:19)
[2017-03-28] MEDS: HEPARIN (PORCINE) 1000 UNIT/ML (DIALYSIS) IVP PRN (06:19)
[2017-03-30] MEDS: HEPARIN (PORCINE) 1000 UNIT/ML (DIALYSIS) IVP PRN (06:32)
[2017-03-30] MEDS: HEPARIN SOD (PORCINE) LOAD IVP PRN (06:32)
[2017-03-30] MEDS: SODIUM FERRIC GLUC 62.5 MG/5ML IVP PRN (07:35)
[2017-04-01] MEDS: HEPARIN SOD (PORCINE) LOAD IVP PRN (06:14)
[2017-04-01] MEDS: HEPARIN (PORCINE) 1000 UNIT/ML (DIALYSIS) IVP PRN (06:14)
[2017-04-01] MEDS: DARBEPOETIN ESRD 25 MCG/ML IVP PRN (06:25)
[2017-04-03] MEDS: HEPARIN (PORCINE) 1000 UNIT/ML (DIALYSIS) IVP PRN (06:28)
[2017-04-03] MEDS: HEPARIN SOD (PORCINE) LOAD IVP PRN (06:28)
[2017-04-06] MEDS: HEPARIN (PORCINE) 1000 UNIT/ML (DIALYSIS) IVP PRN (06:22)
[2017-04-06] MEDS: HEPARIN SOD (PORCINE) LOAD IVP PRN (06:23)
[2017-04-06] MEDS: SODIUM FERRIC GLUC 62.5 MG/5ML IVP PRN (07:37)
[2017-04-08] MEDS: HEPARIN (PORCINE) 1000 UNIT/ML (DIALYSIS) IVP PRN (06:35)
[2017-04-08] MEDS: HEPARIN SOD (PORCINE) LOAD IVP PRN (06:35)
[2017-04-08] MEDS: DARBEPOETIN ESRD 25 MCG/ML IVP PRN (07:04)
[~2017-04-11] VITALS: Ht 172.7 cm; Wt 113.4 kg
[~2017-04-11 09:26] MED LIST changes: +DARBEPOETIN ESRD 100 MCG/0.5ML SYR IVP PRN; +DARBEPOETIN ESRD 25 MCG/ML IVP PRN; +DARBEPOETIN ESRD 40MCG/ML IVP PRN; +HEPARIN (PORCINE) 1000 UNIT/ML (DIALYSIS) ONE; +HEPATITIS B(DIAL) VAC 20MCG/ML 1 ML VIAL IM ONLY ONE; +INFLUENZA VIRUS VAC 0.5 ML SYR IM ONLY ONE; +LOPERAMIDE HCL 2 MG CAP PO PRN; -POLY17PO11 PO; +POLY17PO21 PO
== END | disposition home or self-care (01) ==
LOC: DIAL 04-09 07:38
PROVIDERS: ATTEND Internal Medicine Nephrology
DX: E11.22 Type 2 diabetes mellitus with diabetic chronic kidney disease (principal); I12.0 Hypertensive chronic kidney disease with stage 5 chronic kidney disease or end stage renal disease; N18.6 End stage renal disease; Z99.2 Dependence on renal dialysis; E11.319 Type 2 diabetes mellitus with unspecified diabetic retinopathy without macular edema; I25.10 Atherosclerotic heart disease of native coronary artery without angina pectoris; E11.43 Type 2 diabetes mellitus with diabetic autonomic (poly)neuropathy; E66.01 Morbid (severe) obesity due to excess calories; J44.9 Chronic obstructive pulmonary disease, unspecified; G47.33 Obstructive sleep apnea (adult) (pediatric); Z68.42 Body mass index [BMI] 45.0-49.9, adult; K31.84 Gastroparesis; D63.1 Anemia in chronic kidney disease; E78.5 Hyperlipidemia, unspecified; F17.200 Nicotine dependence, unspecified, uncomplicated; M1A.9XX0 Chronic gout, unspecified, without tophus (tophi); Z23 Encounter for immunization; I95.3 Hypotension of hemodialysis; E46 Unspecified protein-calorie malnutrition; J90 Pleural effusion, not elsewhere classified; E83.51 Hypocalcemia; Z79.4 Long term (current) use of insulin
CPT/HCPCS: 82040; 82108; 82247; 82306; 82310; 82374; 82465; 82565; 82728; 82947; 83036; 83540; 83550; 83970; 84075; 84100; 84132; 84295; 84460; 84478; 84520; 85018; 85025; 86580; 86706; 87340; 90747; 90999; A4657; A9270; G0008; G0010; G0472; J0882; J1644; J2916; Q2037; 86803; 90658; 90674

== ENCOUNTER → 2017-10-26 | Outpatient (CLI) | payer MEDICARE, BC ==
[2016-05-12 10:49] VITALS: BMI 38.1
[~2017-10-26] MED LIST changes: -DARBEPOETIN ESRD 100 MCG/0.5ML SYR IVP PRN; -DARBEPOETIN ESRD 25 MCG/ML IVP PRN; -DARBEPOETIN ESRD 40MCG/ML IVP PRN; -DEXTROSE 50% 50 ML SYR IVP PRN; -HEPARIN (PORCINE) 1000 UNIT/ML (DIALYSIS) ONE; -HEPATITIS B(DIAL) VAC 20MCG/ML 1 ML VIAL IM ONLY ONE; -INFLUENZA VIRUS VAC 0.5 ML SYR IM ONLY ONE; -LOPERAMIDE HCL 2 MG CAP PO PRN; +NOVOLINRPT IJ; +NPH,100V12 SQ; -PROMETHAZINE HCL 25 MG TAB PO PRN; +SULF-198 PO
== END ==
LOC: LAB 07:52
PROVIDERS: ATTEND Internal Medicine
DX: Z12.5 Encounter for screening for malignant neoplasm of prostate (principal); I25.10 Atherosclerotic heart disease of native coronary artery without angina pectoris; G47.33 Obstructive sleep apnea (adult) (pediatric); E11.22 Type 2 diabetes mellitus with diabetic chronic kidney disease
CPT/HCPCS: 84153; 84443

== ENCOUNTER 2018-03-08 12:59 | Emergency (ER) | payer MEDICARE, BC ==
[2016-05-12 10:49] VITALS: Wt 117.0 kg
--- NOTE | 2018-03-08 13:07 | ER Report ---
History and Physical Time Seen By MD: 13:08 Hx. of Stated Complaint: LIGHTHEADED, SOB. HPI/ROS CHIEF COMPLAINT: Lightheadedness, shortness of breath HISTORY OF PRESENT ILLNESS: 63-year-old male patient presents to emergency room with complaint of lightheadedness, shortness of breath. Patient states that he had dialysis this morning. He states that he went and had some beans afterwards. He states that after that he got to the bathroom. While there he felt very lightheaded like he was going pass out. As a result that they did bring him here for evaluation. He did have an appointment at 1:00 with Sheree Neil for e valuation of rash. Patient states that he has had this for the past 2 weeks. He states that it itches in he's been picking at it. Patient states that he felt totally fine after dialysis and then started having problems after that. Patient denied having any chest pain initially. However after my physical exam patient states he did have some onset of chest pain. REVIEW OF SYSTEMS: Respiratory: No cough, no dyspnea. Cardiovascular: No chest pain, no palpitations. Gastrointestinal: No vomiting, no abdominal pain. Musculoskeletal: No back pain. Allergies: Coded Allergies: ferrous gluconate (Verified Adverse Reaction, Intermediate, Severe emesis immediately, 01/24/17) Oral only Home Meds Active Scripts Midodrine Hcl (MIDODRINE HCL) 10 Mg Tablet, 10 MG PO TID, #30 TAB Prov:CLEVECYNDY BRENT 03/08/18 Blood Sugar Diagnostic (FREESTYLE LITE TEST STRIPS) 1 Each Strip, 1 EACH MC QID, #100 STRIP 7 Refills use four times a day to test blood sugar Prov:ELSIE RUBIO MD 12/20/17 Tamsulosin Hcl (TAMSULOSIN HCL) 0.4 Mg Cap.er.24h, 0.4 MG PO DAILY, #90 CAP 3 Refills Prov:ELSIE RUBOI MD 11/17/17 Pantoprazole Sodium (PANTOPRAZOLE SODIUM) 40 Mg Tablet.dr, 1 TAB PO QDAY, #90 T AB.SR 3 Refills Prov:ELSIE RUBIO MD 11/17/17 Gabapentin (GABAPENTIN) 600 Mg Tablet, 600 MG PO BID, #60 TAB 6 Refills Prov:ELSIE RUBIO MD 10/20/17 Nph, Human Insulin Isophane (NOVOLIN N) 100 Unit/1 Ml Vial, 18 UNIT SQ BID, #4 VIAL 9 Refills Prov:ELSIE RUBIO MD 10/20/17 Mirtazapine (MIRTAZAPINE) 15 Mg Tablet, 15 MG PO QDAY, #90 TAB 1 Refill Prov:ELSIE RUBIO MD 09/27/17 Insulin Regular, Human (NOVOLIN R) 100 Unit/1 Ml Vial, 2-12 UNIT IJ TIDAC, #3 VIAL 9 Refills Not to exceed more than 40 units a day Prov:ELSIE RUBIO MD 05/03/17 Polyethylene Glycol 3350 (POLYETHYLENE GLYCOL 3350) 17 Gm Powd.pack, 17 GM PO QDAY PRN for CONSTIPATION, #30 PACKET Prov:ELSIE RUBIO MD 01/05/17 Allopurinol (ALLOPURINOL) 100 Mg Tablet, 1 TAB PO QDAY, #90 TAB 4 Refills Prov:ELSIE RUBIO MD 10/07/16 Reported Medications Calcium Carbonate (TUMS) 300 Mg Tab.chew, 1000 MG PO QHS, TAB.CHEW 12/28/17 Cholecalciferol (Vitamin D3) (VITAMIN D3) 1,000 Unit Tablet, 5000 UNIT PO DAILY, TAB 11/02/17 Midodrine Hcl (MIDODRINE HCL) 10 Mg Tablet, 10 MG PO 3 times per week take 3 times per week, AT THE START OF dialysis 03/09/17 Bacitracin (BACITRACIN) 3.5 Gm Oint...g., 3.5 GM OP 7x per day 02/14/17 Aspirin (ASPIR 81) 81 Mg Tablet.dr, 81 MG PO QDAY, TAB 01/05/17 Vit B Cmplx 3/Fa/Vit C/Biotin (ERNST-NAV RX TABLET) 1 Each Tablet, 1 EACH PO D AILY 04/21/16 Past Medical/Surgical History Patient has a past medical history of neuropathy, hypotension especially after dialysis, congestive heart failure, oxygen 24 hours a day, cholecystitis, kidney failure, currently on dialysis, diabetes, depression. Patient has surgical history of appendectomy, cholecystectomy, right hip replacement, tonsillectomy. Reviewed Nurses Notes: Yes Hx Smoking: Yes Smoking Status: Former Smoker Hx Substance Use Disorder: No Hx Alcohol Use: No Constitutional Vital Sign - Last 24 Hours 03/08/18 03/08/18 03/08/18 03/08/18 13:03 13:05 13:07 13:14 Pulse 90 92 Resp 26 4 B/P (MAP) 87/61 87/61 (70) Pulse Ox 95 O2 Delivery Nasal Cannula O2 Flow Rate 2.0 03/08/18 03/08/18 03/08/18 03/08/18 13:29 13:36 13:44 13:59 Pulse 92 88 91 Resp 9 11 13 B/P (MAP) 81/53 (62) 03/08/18 03/08/18 03/08/18 03/08/18 14:00 14:30 15:00 15:03 Pulse 85 B/P (MAP) 98/63 (75) 96/62 (73) 65/34 (44) 72/34 (47) Pulse Ox 88 03/08/18 03/08/18 03/08/18 03/08/18 15:05 15:12 15:15 15:30 Pulse 80 B/P (MAP) 64/34 (44) 70/30 (43) 75/33 (47) 79/52 (61) Pulse Ox 80 83 03/08/18 03/08/18 03/08/18 03/08/18 15:35 15:40 15:45 15:50 B/P (MAP) 79/39 (52) 71/47 (55) 64/42 (49) 71/45 (54) Pulse Ox 74 03/08/18 03/08/18 03/08/18 03/08/18 15:55 16:00 16:05 16:10 B/P (MAP) 83/39 (54) 72/37 (49) 71/38 (49) 65/44 (51) Pulse Ox 85 03/08/18 03/08/18 03/08/18 03/08/18 16:15 16:20 16:25 16:30 Pulse 85 87 B/P (MAP) 65/35 (45) 85/35 (52) 61/39 (46) 76/57 (63) Pulse Ox 88 95 03/08/18 03/08/18 03/08/18 03/08/18 16:35 16:40 16:45 16:50 B/P (MAP) 87/70 (76) 81/64 (70) 101/62 (75) 103/61 (75) 03/08/18 03/08/18 03/08/18 03/08/18 16:55 17:00 17:05 17:10 Pulse 87 B/P (MAP) 85/55 (65) 83/58 (66) 111/65 (80) 84/66 (72) Pulse Ox 80 03/08/18 03/08/18 03/08/18 03/08/18 17:15 17:20 17:25 17:30 Pulse 91 91 B/P (MAP) 103/86 (92) 98/76 (83) 90/63 (72) 95/54 (68) Pulse Ox 66 92 03/08/18 03/08/18 03/08/18 03/08/18 17:35 17:40 17:45 17:50 B/P (MAP) 79/54 (62) 75/50 (58) 76/49 (58) 80/59 (66) Pulse Ox 93 03/08/18 03/08/18 03/08/18 03/08/18 17:55 18:00 18:07 18:09 B/P (MAP) 97/63 (74) 86/61 (69) 71/56 (61) 83/69 (74) Pulse Ox 87 03/08/18 03/08/18 03/08/18 03/08/18 18:15 18:20 18:25 18:30 B/P (MAP) 73/53 (60) 54/39 (44) 75/43 (54) 71/43 (52) 03/08/18 03/08/18 03/08/18 03/08/18 18:35 18:40 18:45 18:50 B/P (MAP) 98/64 (75) 81/56 (64) 129/120 (123) 75/53 (60) 03/08/18 03/08/18 03/08/18 03/08/18 18:55 19:00 19:05 19:10 B/P (MAP) 71/55 (60) 115/62 (79) 74/55 (61) 71/49 (56) 03/08/18 03/08/18 03/08/18 03/08/18 19:15 19:20 19:25 19:30 B/P (MAP) 73/47 (56) 83/45 (58) 99/58 (72) 83/59 (67) 03/08/18 03/08/18 03/08/18 03/08/18 19:35 19:40 19:45 19:50 B/P (MAP) 79/48 (58) 87/59 (68) 79/48 (58) 71/44 (53) 03/08/18 03/08/18 03/08/18 03/08/18 19:55 20:00 20:05 20:10 B/P (MAP) 89/44 (59) 87/43 (58) 87/62 (70) 91/68 (76) 03/08/18 20:15 B/P (MAP) 90/64 (73) Physical Exam General Appearance: The patient is alert, has no immediate need for airway protection and no current signs of toxicity. Respiratory: Chest is non tender, lungs are clear to auscultation. Cardiac: regular rate and rhythm Gastrointestinal: Abdomen is soft and non tender, no masses, bowel sounds normal. Musculoskeletal: Neck: Neck is supple and non tender. Extremities have full range of motion and are non tender. Skin: No rashes or lesions. DIFFERENTIAL DIAGNOSIS: After history and physical exam differential diagnosis was considered for hypertension, AR, pneumonia. Medical Decision Making Data Points Result Diagram: 03/08/18 1353 03/08/18 1353 Laboratory Hematology Test 03/08/18 13:53 03/08/18 16:36 Red Blood Count 3.45 M/uL (4.00-5.60) Mean Corpuscular Volume 96.7 fL (80.0-96.0) Mean Corpuscular Hemoglobin 33.7 pg (26.0-33.0) Mean Corpuscular Hemoglobin Concent 34.9 g/dL (32.0-36.0) Red Cell Distribution Width 14.5 % (11.5-14.5) Mean Platelet Volume 7.8 fL (7.2-11.1) Neutrophils (%) (Auto) 72.1 % (39.4-72.5) Lymphocytes (%) (Auto) 18.9 % (17.6-49.6) Monocytes (%) (Auto) 5.7 % (4.1-12.4) Eosinophils (%) (Auto) 2.2 % (0.4-6.7) Basophils (%) (Auto) 1.1 % (0.3-1.4) Nucleated RBC Relative Count (auto) 0.0 /100WBC Neutrophils # (Auto) 5.3 K/uL (2.0-7.4) Lymphocytes # (Auto) 1.4 K/uL (1.3-3.6) Monocytes # (Auto) 0.4 K/uL (0.3-1.0) Eosinophils # (Auto) 0.2 K/uL (0.0-0.5) Basophils # (Auto) 0.1 K/uL (0.0-0.1) Nucleated RBC Absolute Count (auto) 0.00 K/uL Sodium Level 133 mmol/L (137-145) Potassium Level 4.5 mmol/L (3.5-5.0) Chloride Level 92 mmol/L (98-107) Carbon Dioxide Level 27 mmol/L (22-30) Blood Urea Nitrogen 14 mg/dl (9-21) Creatinine 4.00 mg/dl (0.66-1.25) Glomerular Filtration Rate Calc 15.2 Random Glucose 321 mg/dl (75-110) Calcium Level 9.5 mg/dl (8.4-10.2) Total Bilirubin 1.0 mg/dl (0.2-1.3) Aspartate Amino Transf (AST/SGOT) 41 U/L (0-35) Alanine Aminotransferase (ALT/SGPT) 48 U/L (0-56) Alkaline Phosphatase 158 U/L (0-126) Total Protein 8.3 g/dl (6.3-8.2) Albumin 4.1 g/dl (3.5-5.0) Troponin I < 0.012 ng/ml Chemistry Test 03/08/18 13:53 03/08/18 16:36 White Blood Count 7.3 k/uL (4.5-11.0) Red Blood Count 3.45 M/uL (4.00-5.60) Hemoglobin 11.6 g/dL (14.0-18.0) Hematocrit 33.3 % (42.0-52.0) Mean Corpuscular Volume 96.7 fL (80.0-96.0) Mean Corpuscular Hemoglobin 33.7 pg (26.0-33.0) Mean Corpuscular Hemoglobin Concent 34.9 g/dL (32.0-36.0) Red Cell Distribution Width 14.5 % (11.5-14.5) Platelet Count 228 K/uL (150-450) Mean Platelet Volume 7.8 fL (7.2-11.1) Neutrophils (%) (Auto) 72.1 % (39.4-72.5) Lymphocytes (%) (Auto) 18.9 % (17.6-49.6) Monocytes (%) (Auto) 5.7 % (4.1-12.4) Eosinophils (%) (Auto) 2.2 % (0.4-6.7) Basophils (%) (Auto) 1.1 % (0.3-1.4) Nucleated RBC Relative Count (auto) 0.0 /100WBC Neutrophils # (Auto) 5.3 K/uL (2.0-7.4) Lymphocytes # (Auto) 1.4 K/uL (1.3-3.6) Monocytes # (Auto) 0.4 K/uL (0.3-1.0) Eosinophils # (Auto) 0.2 K/uL (0.0-0.5) Basophils # (Auto) 0.1 K/uL (0.0-0.1) Nucleated RBC Absolute Count (auto) 0.00 K/uL Glomerular Filtration Rate Calc 15.2 Calcium Level 9.5 mg/dl (8.4-10.2) Total Bilirubin 1.0 mg/dl (0.2-1.3) Aspartate Amino Transf (AST/SGOT) 41 U/L (0-35) Alanine Aminotransferase (ALT/SGPT) 48 U/L (0-56) Alkaline Phosphatase 158 U/L (0-126) Total Protein 8.3 g/dl (6.3-8.2) Albumin 4.1 g/dl (3.5-5.0) Troponin I < 0.012 ng/ml EKG/Imaging EKG Interpretation 12 lead EKG: Rhythm: normal sinus rhythm with a ventricular rate of 93 bpm Quail: normal QRS: normal ST segments: Prolonged QT Imaging Exam type: ABDOMEN AP AND ERECT/DECUB History: lightheadedness, SOB Comparison: CT abdomen pelvis July 12, 2016. Findings: Supine and left lateral decubitus views the abdomen were submitted. Bowel gas pattern is nonspecific there is no gross evidence of free intraperitoneal air studies limited due to patient's large body habitus. Incompletely imaged right hip arthroplasty IMPRESSION: 1. Nonspecific bowel gas pattern Report Dictated By: Dipti Vasques MD at 03/08/2018 3:10 PM Report E-Signed By: Dipti Vasques MD at 03/08/2018 3:16 PM Exam type: CHEST PA AND LAT History: lightheadedness, SOB Comparison: January 24, 2017. Findings: Patient is rotated towards the right. There is increased density over the medial right lung base. A similar finding was present on the prior chest radiograph. No new areas of pulmonary consolidation are identified. The cardiac silhouette is unchanged. IMPRESSION: 1. Patient is rotated towards the right. There is an area of increased density over the medial right lung base appears similar to the prior study apparently chronic. No new areas of pulmonary consolidation seen Report Dictated By: Dipti Vasques MD at 03/08/2018 3:07 PM Report E-Signed By: Dipti Vasques MD at 03/08/2018 3:10 PM ED Course/Re-evaluation ED Course Patient was admitted to the exam room, history and physical were obtained. Diff erential diagnoses were considered. On examination lungs are clear, heart is regular, abdomen was soft and nontender. A CBC, CMP, troponin, EKG, chest x-ray, abdominal x-rays were done. Patient had a creatinine of 4.0, which is not abnormal for the patient as he is on dialysis. Troponin was negative. After my initial evaluation patient did complain of chest pain. I continued to monitor patient for 4 hours. After which time I did note that his blood pressure would vary considerably, the highest was 111/64 and the lowest was 64/34. Repeat troponin was negative as well. I discussed the case with the activities attendant at [facility]. His recommendation was to start the patient on Midodrine 10 mg 3 times a da y. I did attempt to order that here in the hospital to give him a dose. However it is not a medication that is carried here. I sent a prescription in for the patient. Patient stated he would like to go home. We did attempt to get him up. He felt very weak in the knees and felt that he was not able to take more than 2 steps. He said back down and rest. He ate some dinner and we got him up again to walk. Again he is not able to make it further than 2 steps. Patient stated he would like to go home. His stated that if that so he felt that he could. However I do have significant concerns with patient going home especially with him having to walk approximately 20 feet and then climb 5 steps. He agreed to be admitted to [facility]. I spoke with Dr. Guerin, hospitalist, he felt that there was not much care that needs to be done and requested that I speak with the hospitalist here. I spoke with Dr. Rose, hospitalist, who felt that since we were unable to take care of the kidneys that we would not be suited for taking the patient. We did call back and spoke with the transfer line and Dr. Guerin accepted the patient for admission. Patient will be transferred down by ambulance. I spoke with the patient who verbalized understanding and agreement with plan. Decision to Disposition Date: Mar 08, 2018 Decision to Disposition Time: 19:42 Depart Departure Latest Vital Signs Vital Signs Date Time Temp Pulse Resp B/P (MAP) Pulse Ox O2 Delivery O2 Flow Rate FiO2 03/08/18 20:15 90/64 (73) 03/08/18 18:00 87 03/08/18 17:30 91 03/08/18 13:59 13 03/08/18 13:05 2.0 03/08/18 13:03 Nasal Cannula Impression: Primary Impression: Hypotension of hemodialysis Condition: Condition Unchanged Disposition: XFER TO [facility] Referrals: LESIE RUBIO MD (PCP) New Scripts Midodrine Hcl (MIDODRINE HCL) 10 Mg Tablet 10 MG PO TID, #30 TAB Prov: CYNDY POON 03/08/18 CYNDY POON Mar 08, 2018 13:07
--- NOTE | 2018-03-08 13:27 | EKG ---
FACILITY: [facility] PATIENT NAME: KWASI OWEN : [id number] MR: [id number] V: [id number] EXAM DATE: ORDERING PHYSICIAN: CYNDY POON TECHNOLOGIST: MARIA A Koo Reason : Blood Pressure : / mmHG Vent. Rate : 093 BPM Atrial Rate : 093 BPM P-R Int : 202 ms QRS Dur : 086 ms QT Int : 390 ms P-R-T Axes : 033 018 030 degrees QTc Int : 484 ms Normal sinus rhythm Prolonged QT Abnormal ECG When compared with ECG of 24-JAN-2017 12:51, No significant change was found Confirmed by Bairon Peña ([id number]) on 03/08/2018 6:54:54 PM Referred By: Confirmed By:Bairon Delgado
[2018-03-08 14:11] LABS: PLATELET COUNT, AUTOMATED 228 K/uL (150-450)
--- NOTE | 2018-03-08 15:14 | RADIOLOGY IMAGING REPORT ---
FACILITY: [facility] PATIENT NAME: Yadiel Nguyen : 1955 MR: [id number] V: [id number] EXAM DATE: ORDERING PHYSICIAN: CYNDY POON TECHNOLOGIST: Location: [facility] Patient: Yadiel Nguyen : 1955 Visit/Account:[id number] Date of Sevice: 03/08/2018 Exam type: CHEST PA AND LAT History: lightheadedness, SOB Comparison: January 24, 2017. Findings: Patient is rotated towards the right. There is increased density over the medial right lung base. A similar finding was present on the prior chest radiograph. No new areas of pulmonary consolidation are identified. The cardiac silhouette is unchanged. IMPRESSION: 1. Patient is rotated towards the right. There is an area of increased density over the medial righ t lung base appears similar to the prior study apparently chronic. No new areas of pulmonary consoli dation seen Report Dictated By: Dipti Vasques MD at 03/08/2018 3:07 PM Report E-Signed By: Dipti Vasques MD at 03/08/2018 3:10 PM WSN:[email or web address]
[2018-03-08] MEDS ORDERED: NS(*) 0.9% 500 ML BAG 500 ML IV ONE (15:15)
--- NOTE | 2018-03-08 15:20 | RADIOLOGY IMAGING REPORT ---
FACILITY: [facility] PATIENT NAME: Yadiel Nguyen : 1955 MR: [id number] V: [id number] EXAM DATE: ORDERING PHYSICIAN: CYNDY POON TECHNOLOGIST: Location: [facility] Patient: Yadiel Nguyen : 1955 Visit/Account:[id number] Date of Sevice: 03/08/2018 Exam type: ABDOMEN AP AND ERECT/DECUB History: lightheadedness, SOB Comparison: CT abdomen pelvis July 12, 2016. Findings: Supine and left lateral decubitus views the abdomen were submitted. Bowel gas pattern is nonspecific there is no gross evidence of free intraperitoneal air studies limit ed due to patient's large body habitus. Incompletely imaged right hip arthroplasty IMPRESSION: 1. Nonspecific bowel gas pattern Report Dictated By: Dipti Vasques MD at 03/08/2018 3:10 PM Report E-Signed By: Dipti Vasques MD at 03/08/2018 3:16 PM WSN:[email or web address]
[2018-03-08] MEDS ORDERED: MIDO10TA9 PO (18:00)
[2018-03-08 20:15] VITALS: BP 90/64
== END 2018-03-08 20:25 | disposition short-term general hospital (02) ==
LOC: ER 13:18
DX: I95.3 Hypotension of hemodialysis (principal)
CPT/HCPCS: 71046; 74019; 84484; 85025; 93005; 96360; 96361; 99285; J7040; 82040; 82247; 82310; 82374; 82435; 82565; 82947; 84075; 84132; 84155; 84295; 84450; 84460; 84520

== ENCOUNTER → 2018-03-08 | Outpatient (CLI) | payer MEDICARE, BC ==
[2016-05-12 10:49] VITALS: BMI 38.1
[~2018-03-08] MED LIST changes: +CALC-521 PO; +POLY17PO11 PO; -POLY17PO21 PO
== END ==
LOC: AMB 20:14
PROVIDERS: ATTEND Nurse Practitioner
DX: I95.3 Hypotension of hemodialysis (principal); R53.1 Weakness
CPT/HCPCS: A0425; A0426

== ENCOUNTER 2018-04-11 00:10 | Outpatient (RCR) | payer MEDICARE, BC ==
[2016-05-12 10:49] VITALS: BMI 38.1
[~2018-04-11 00:10] MED LIST changes: -BUM2 PO; +BUME2TAB17 PO; +FLAS1EAC2 TD; +FLAS1KIT2; -GABA-503 PO; +GABA-533 PO; +LOPERAMIDE HCL 2 MG CAP PO ONE; +PROMETHAZINE HCL 25 MG TAB PO PRN; +diphenhydr DIALYSIS 50 MG/ML IVP PRN
[2018-04-12] MEDS: HEPARIN (PORCINE) 1000 UNIT/ML (DIALYSIS) IVP PRN ×2 (06:24)
[2018-04-14] MEDS: HEPARIN (PORCINE) 1000 UNIT/ML (DIALYSIS) IVP PRN ×2 (06:12)
[2018-04-14] MEDS: DARBEPOETIN ESRD 25 MCG/ML IVP PRN (07:25)
[2018-04-17] MEDS: HEPARIN (PORCINE) 1000 UNIT/ML (DIALYSIS) IVP PRN ×2 (06:07)
[2018-04-17] MEDS ORDERED: LOPERAMIDE HCL 2 MG CAP PO PRN (07:55)
[2018-04-19] MEDS: HEPARIN (PORCINE) 1000 UNIT/ML (DIALYSIS) IVP PRN ×2 (06:15)
[2018-04-21] MEDS: HEPARIN (PORCINE) 1000 UNIT/ML (DIALYSIS) IVP PRN ×2 (06:17)
[2018-04-21] MEDS: DARBEPOETIN ESRD 25 MCG/ML IVP PRN (06:26)
[2018-04-21] MEDS: LOPERAMIDE HCL 2 MG CAP PO PRN (10:12)
[2018-04-21] MEDS ORDERED: LIDO15SO2 RC (13:44)
[2018-04-24] MEDS: HEPARIN (PORCINE) 1000 UNIT/ML (DIALYSIS) IVP PRN ×2 (06:02)
[2018-04-26] MEDS: HEPARIN (PORCINE) 1000 UNIT/ML (DIALYSIS) IVP PRN ×2 (06:10→06:11)
[2018-04-28] MEDS: HEPARIN (PORCINE) 1000 UNIT/ML (DIALYSIS) IVP PRN ×2 (06:02→06:03)
[2018-04-28] MEDS: LOPERAMIDE HCL 2 MG CAP PO PRN (06:22)
[2018-04-28] MEDS: DARBEPOETIN ESRD 25 MCG/ML IVP PRN (08:22)
[2018-04-28] MEDS: DIALYSIS ACETAMINOPHEN 325 MG PO PRN (11:02)
[2018-04-28] MEDS ORDERED: AMOX-559 PO (13:35)
[2018-04-28] MEDS ORDERED: HYDR-385 PO (13:46)
[2018-04-28] MEDS ORDERED: FLUT16SP19 NS (13:46)
[2018-05-01] MEDS: HEPARIN (PORCINE) 1000 UNIT/ML (DIALYSIS) IVP PRN ×2 (06:10)
[2018-05-01] MEDS ORDERED: HYDR-385 PO (16:26)
[2018-05-03] MEDS: HEPARIN (PORCINE) 1000 UNIT/ML (DIALYSIS) IVP PRN ×2 (06:05)
[2018-05-03 07:50] LABS: PLATELET COUNT, AUTOMATED 214 K/uL (150-450)
[2018-05-03] MEDS ORDERED: ESCI10TA8 PO (13:30)
[2018-05-03] MEDS ORDERED: TRAZ50TA52 PO (13:30)
[2018-05-03] MEDS ORDERED: CIPHCO RIGHT EAR (13:30)
[2018-05-03] MEDS ORDERED: LEVO-85 PO (13:30)
[2018-05-05] MEDS: HEPARIN (PORCINE) 1000 UNIT/ML (DIALYSIS) IVP PRN ×2 (06:05→06:06)
[2018-05-05] MEDS: DARBEPOETIN ESRD 25 MCG/ML IVP PRN (07:07)
[2018-05-08] MEDS: HEPARIN (PORCINE) 1000 UNIT/ML (DIALYSIS) IVP PRN ×2 (06:07→06:08)
[2018-05-10] MEDS: HEPARIN (PORCINE) 1000 UNIT/ML (DIALYSIS) IVP PRN ×2 (06:16)
[2018-05-10] MEDS: LOPERAMIDE HCL 2 MG CAP PO PRN (08:54)
[2018-05-12] MEDS: HEPARIN (PORCINE) 1000 UNIT/ML (DIALYSIS) IVP PRN ×2 (06:07)
[2018-05-12] MEDS: DARBEPOETIN ESRD 25 MCG/ML IVP PRN (07:32)
[2018-05-15] MEDS: HEPARIN (PORCINE) 1000 UNIT/ML (DIALYSIS) IVP PRN ×2 (06:07)
[2018-05-17] MEDS: HEPARIN (PORCINE) 1000 UNIT/ML (DIALYSIS) IVP PRN ×2 (06:23)
[2018-05-19] MEDS: HEPARIN (PORCINE) 1000 UNIT/ML (DIALYSIS) IVP PRN ×2 (06:15)
[2018-05-19] MEDS: DARBEPOETIN ESRD 25 MCG/ML IVP PRN (07:31)
[2018-05-22] MEDS: HEPARIN (PORCINE) 1000 UNIT/ML (DIALYSIS) IVP PRN ×2 (06:03)
[2018-05-24] MEDS: HEPARIN (PORCINE) 1000 UNIT/ML (DIALYSIS) IVP PRN ×2 (06:09)
[2018-05-26] MEDS: HEPARIN (PORCINE) 1000 UNIT/ML (DIALYSIS) IVP PRN ×2 (06:11→06:12)
[2018-05-26] MEDS: DARBEPOETIN ESRD 25 MCG/ML IVP PRN (07:56)
[2018-05-29] MEDS: HEPARIN (PORCINE) 1000 UNIT/ML (DIALYSIS) IVP PRN ×2 (06:06)
[2018-05-31] MEDS: HEPARIN (PORCINE) 1000 UNIT/ML (DIALYSIS) IVP PRN ×2 (06:15→06:16)
[2018-05-31 07:39] LABS: PLATELET COUNT, AUTOMATED 186 K/uL (150-450)
[2018-06-02] MEDS: HEPARIN (PORCINE) 1000 UNIT/ML (DIALYSIS) IVP PRN ×2 (06:07→06:08)
[2018-06-02] MEDS: DARBEPOETIN ESRD 25 MCG/ML IVP PRN (08:04)
[2018-06-05] MEDS: HEPARIN (PORCINE) 1000 UNIT/ML (DIALYSIS) IVP PRN ×2 (06:07)
[2018-06-07] MEDS: HEPARIN (PORCINE) 1000 UNIT/ML (DIALYSIS) IVP PRN ×2 (06:10→06:11)
[2018-06-09] MEDS: HEPARIN (PORCINE) 1000 UNIT/ML (DIALYSIS) IVP PRN ×2 (06:09)
[2018-06-09] MEDS: DARBEPOETIN ESRD 25 MCG/ML IVP PRN (07:00)
[2018-06-12] MEDS: HEPARIN (PORCINE) 1000 UNIT/ML (DIALYSIS) IVP PRN ×2 (08:41)
[2018-06-12] MEDS ORDERED: TAMS0.4C25 PO (11:44)
[2018-06-12] MEDS ORDERED: CHOL10005 PO (11:46)
[2018-06-12] MEDS ORDERED: NPH,100V2 SUBQ (11:51)
[2018-06-12] MEDS ORDERED: INSU100V26 SC (11:53)
[2018-06-12] MEDS ORDERED: ACYC-50 PO (14:39)
[2018-06-12] MEDS ORDERED: CEPH500T7 PO (16:08)
[2018-06-14] MEDS: HEPARIN (PORCINE) 1000 UNIT/ML (DIALYSIS) IVP PRN ×2 (06:14)
[2018-06-14 07:31] LABS: PLATELET COUNT, AUTOMATED 186 K/uL (150-450)
[2018-06-16] MEDS: HEPARIN (PORCINE) 1000 UNIT/ML (DIALYSIS) IVP PRN ×2 (06:05)
[2018-06-16] MEDS: DARBEPOETIN ESRD 100 MCG/0.5ML SYR IVP PRN (07:48)
[2018-06-16] MEDS ORDERED: ALLO100T70 PO (16:17)
[2018-06-19] MEDS: HEPARIN (PORCINE) 1000 UNIT/ML (DIALYSIS) IVP PRN ×2 (06:25)
[2018-06-21] MEDS: HEPARIN (PORCINE) 1000 UNIT/ML (DIALYSIS) IVP PRN ×2 (06:12)
[2018-06-21] MEDS: DIALYSIS ACETAMINOPHEN 325 MG PO PRN (09:56)
[2018-07-03] MEDS: HEPARIN (PORCINE) 1000 UNIT/ML (DIALYSIS) IVP PRN ×2 (06:25)
[2018-07-03] MEDS ORDERED: MIDO10TA9 PO (09:27)
[2018-07-05] MEDS ORDERED: HEPARIN (PORCINE) 1000 UNIT/ML (DIALYSIS) ONE ×2 (04:57→04:58)
[2018-07-05] MEDS: HEPARIN (PORCINE) 1000 UNIT/ML (DIALYSIS) IVP PRN ×2 (06:15→06:16)
[2018-07-07] MEDS: HEPARIN (PORCINE) 1000 UNIT/ML (DIALYSIS) IVP PRN ×2 (06:13)
[2018-07-07] MEDS: DARBEPOETIN ESRD 100 MCG/0.5ML SYR IVP PRN (08:02)
[2018-07-10] MEDS: HEPARIN (PORCINE) 1000 UNIT/ML (DIALYSIS) IVP PRN ×2 (06:13)
[2018-07-12] MEDS: HEPARIN (PORCINE) 1000 UNIT/ML (DIALYSIS) IVP PRN ×2 (06:26)
[2018-07-14] MEDS ORDERED: DARBEPOETIN ESRD 25 MCG/ML IVP PRN
[2018-07-14] MEDS: HEPARIN (PORCINE) 1000 UNIT/ML (DIALYSIS) IVP PRN ×2 (06:06)
[2018-07-14] MEDS: DARBEPOETIN ESRD 100 MCG/0.5ML 100 MCG, DARBEPOETIN ESRD 25 MCG/ML 50 MCG IVP PRN (07:51)
[2018-07-17] MEDS: HEPARIN (PORCINE) 1000 UNIT/ML (DIALYSIS) IVP PRN ×2 (06:06)
[2018-07-19] MEDS: HEPARIN (PORCINE) 1000 UNIT/ML (DIALYSIS) IVP PRN ×2 (06:08)
[2018-07-19] MEDS: LOPERAMIDE HCL 2 MG CAP PO PRN (08:59)
[2018-07-21] MEDS: HEPARIN (PORCINE) 1000 UNIT/ML (DIALYSIS) IVP PRN ×2 (06:28→06:29)
[2018-07-21] MEDS: DARBEPOETIN ESRD 100 MCG/0.5ML 100 MCG, DARBEPOETIN ESRD 25 MCG/ML 50 MCG IVP PRN (07:41)
[2018-07-24] MEDS: HEPARIN (PORCINE) 1000 UNIT/ML (DIALYSIS) IVP PRN ×2 (06:08→06:09)
[2018-07-24] MEDS ORDERED: LIDO15SO2 PR (09:36)
[2018-07-25] MEDS ORDERED: ATOR20TA65 PO (14:53)
[2018-07-26] MEDS: HEPARIN (PORCINE) 1000 UNIT/ML (DIALYSIS) IVP PRN ×2 (06:19)
[2018-07-26 07:50] LABS: PLATELET COUNT, AUTOMATED 271 K/uL (150-450)
[2018-07-28] MEDS: HEPARIN (PORCINE) 1000 UNIT/ML (DIALYSIS) IVP PRN ×2 (06:09)
[2018-07-28] MEDS: DARBEPOETIN ESRD 100 MCG/0.5ML SYR IVP PRN (06:30)
[2018-07-28] MEDS: LOPERAMIDE HCL 2 MG CAP PO PRN ×2 (08:41→08:45)
[2018-07-31] MEDS: HEPARIN (PORCINE) 1000 UNIT/ML (DIALYSIS) IVP PRN ×2 (06:08)
[2018-08-02] MEDS: HEPARIN (PORCINE) 1000 UNIT/ML (DIALYSIS) IVP PRN ×2 (06:17)
[2018-08-04] MEDS: HEPARIN (PORCINE) 1000 UNIT/ML (DIALYSIS) IVP PRN ×2 (06:16)
[2018-08-04] MEDS: DARBEPOETIN ESRD 100 MCG/0.5ML SYR IVP PRN (07:12)
[2018-08-07] MEDS: HEPARIN (PORCINE) 1000 UNIT/ML (DIALYSIS) IVP PRN ×2 (06:04→06:05)
[2018-08-09] MEDS: HEPARIN (PORCINE) 1000 UNIT/ML (DIALYSIS) IVP PRN ×2 (06:15→06:16)
[2018-08-09] MEDS: SODIUM FERRIC GLUC 62.5 MG/5ML IVP PRN (07:17)
[2018-08-11] MEDS: HEPARIN (PORCINE) 1000 UNIT/ML (DIALYSIS) IVP PRN ×2 (06:08)
[2018-08-11] MEDS: DARBEPOETIN ESRD 100 MCG/0.5ML SYR IVP PRN (06:30)
[2018-08-14] MEDS: HEPARIN (PORCINE) 1000 UNIT/ML (DIALYSIS) IVP PRN ×2 (06:10)
[2018-08-16] MEDS: HEPARIN (PORCINE) 1000 UNIT/ML (DIALYSIS) IVP PRN ×2 (06:20)
[2018-08-16] MEDS: SODIUM FERRIC GLUC 62.5 MG/5ML IVP PRN (07:15)
[2018-08-18] MEDS: HEPARIN (PORCINE) 1000 UNIT/ML (DIALYSIS) IVP PRN ×2 (06:16→06:17)
[2018-08-18] MEDS: LOPERAMIDE HCL 2 MG CAP PO PRN (06:16)
[2018-08-18] MEDS: DARBEPOETIN ESRD 100 MCG/0.5ML SYR IVP PRN (07:07)
[2018-08-18] MEDS ORDERED: GABA-549 PO (08:39)
[2018-08-21] MEDS: HEPARIN (PORCINE) 1000 UNIT/ML (DIALYSIS) IVP PRN ×2 (06:08)
[2018-08-23] MEDS: HEPARIN (PORCINE) 1000 UNIT/ML (DIALYSIS) IVP PRN ×2 (06:07)
[2018-08-23] MEDS: SODIUM FERRIC GLUC 62.5 MG/5ML IVP PRN (06:17)
[2018-08-23 07:26] LABS: PLATELET COUNT, AUTOMATED 216 K/uL (150-450)
[2018-08-25] MEDS: HEPARIN (PORCINE) 1000 UNIT/ML (DIALYSIS) IVP PRN ×2 (06:11)
[2018-08-25] MEDS: LOPERAMIDE HCL 2 MG CAP PO PRN (06:39)
[2018-08-25] MEDS: DARBEPOETIN ESRD 100 MCG/0.5ML SYR IVP PRN (06:39)
[2018-08-28] MEDS: HEPARIN (PORCINE) 1000 UNIT/ML (DIALYSIS) IVP PRN ×2 (06:08→06:09)
[2018-08-30] MEDS: HEPARIN (PORCINE) 1000 UNIT/ML (DIALYSIS) IVP PRN ×2 (06:07→06:08)
[2018-08-30] MEDS: SODIUM FERRIC GLUC 62.5 MG/5ML IVP PRN (06:40)
[2018-09-01] MEDS: HEPARIN (PORCINE) 1000 UNIT/ML (DIALYSIS) IVP PRN ×2 (06:14→06:15)
[2018-09-01] MEDS: DARBEPOETIN ESRD 100 MCG/0.5ML SYR IVP PRN (07:22)
[2018-09-04] MEDS: HEPARIN (PORCINE) 1000 UNIT/ML (DIALYSIS) IVP PRN ×2 (06:23)
[2018-09-06] MEDS: HEPARIN (PORCINE) 1000 UNIT/ML (DIALYSIS) IVP PRN ×2 (06:03→06:04)
[2018-09-06] MEDS: SODIUM FERRIC GLUC 62.5 MG/5ML IVP PRN (06:18)
[2018-09-07] MEDS ORDERED: ESCI10TA8 PO (16:55)
[2018-09-08] MEDS: HEPARIN (PORCINE) 1000 UNIT/ML (DIALYSIS) IVP PRN ×2 (06:23→06:24)
[2018-09-08] MEDS: DARBEPOETIN ESRD 100 MCG/0.5ML 100 MCG, DARBEPOETIN ESRD 25 MCG/ML 50 MCG IVP PRN (07:13)
[2018-09-08] MEDS ORDERED: DARBEPOETIN ESRD 100 MCG/0.5ML SYR IVP PRN (08:00)
[2018-09-08] MEDS ORDERED: DARBEPOETIN ESRD 25 MCG/ML IVP PRN (08:00)
[2018-09-11] MEDS: HEPARIN (PORCINE) 1000 UNIT/ML (DIALYSIS) IVP PRN ×2 (06:10)
[2018-09-11] MEDS ORDERED: [UNRECOGNIZED DRUG - CODE] MC (09:30)
[2018-09-13] MEDS: HEPARIN (PORCINE) 1000 UNIT/ML (DIALYSIS) IVP PRN ×2 (06:24)
[2018-09-13 07:22] LABS: PLATELET COUNT, AUTOMATED 202 K/uL (150-450)
[2018-09-13] MEDS: SODIUM FERRIC GLUC 62.5 MG/5ML IVP PRN (07:38)
[2018-09-13] MEDS: LOPERAMIDE HCL 2 MG CAP PO PRN (09:52)
[2018-09-15] MEDS: HEPARIN (PORCINE) 1000 UNIT/ML (DIALYSIS) IVP PRN ×2 (06:05)
[2018-09-15] MEDS: DARBEPOETIN ESRD 100 MCG/0.5ML 100 MCG, DARBEPOETIN ESRD 25 MCG/ML 50 MCG IVP PRN (06:23)
[2018-09-15] MEDS: LOPERAMIDE HCL 2 MG CAP PO PRN (08:44)
[2018-09-18] MEDS: HEPARIN (PORCINE) 1000 UNIT/ML (DIALYSIS) IVP PRN ×2 (06:12)
[2018-09-20] MEDS: HEPARIN (PORCINE) 1000 UNIT/ML (DIALYSIS) IVP PRN ×2 (06:00→06:01)
[2018-09-20] MEDS: SODIUM FERRIC GLUC 62.5 MG/5ML IVP PRN (06:15)
[2018-09-22] MEDS: HEPARIN (PORCINE) 1000 UNIT/ML (DIALYSIS) IVP PRN ×2 (06:11)
[2018-09-22] MEDS: DARBEPOETIN ESRD 100 MCG/0.5ML SYR IVP PRN (07:15)
[2018-09-25] MEDS: HEPARIN (PORCINE) 1000 UNIT/ML (DIALYSIS) IVP PRN ×2 (06:05→06:06)
[2018-09-27] MEDS: HEPARIN (PORCINE) 1000 UNIT/ML (DIALYSIS) IVP PRN ×2 (06:02→06:03)
[2018-09-27] MEDS: SODIUM FERRIC GLUC 62.5 MG/5ML IVP PRN (07:33)
[2018-09-27] MEDS ORDERED: BLOO1STR16 MC (15:30)
[2018-09-29] MEDS: HEPARIN (PORCINE) 1000 UNIT/ML (DIALYSIS) IVP PRN ×2 (06:16→06:17)
[2018-09-29] MEDS: DARBEPOETIN ESRD 100 MCG/0.5ML SYR IVP PRN (07:51)
[2018-10-02] MEDS: HEPARIN (PORCINE) 1000 UNIT/ML (DIALYSIS) IVP PRN ×2 (06:08→06:09)
[2018-10-04] MEDS: HEPARIN (PORCINE) 1000 UNIT/ML (DIALYSIS) IVP PRN ×2 (06:09)
[2018-10-04] MEDS: SODIUM FERRIC GLUC 62.5 MG/5ML IVP PRN (07:16)
[2018-10-06] MEDS: HEPARIN (PORCINE) 1000 UNIT/ML (DIALYSIS) IVP PRN ×2 (06:02)
[2018-10-06] MEDS: DARBEPOETIN ESRD 100 MCG/0.5ML SYR IVP PRN (06:14)
[2018-10-09] MEDS: HEPARIN (PORCINE) 1000 UNIT/ML (DIALYSIS) IVP PRN ×2 (06:03)
[2018-10-09] MEDS: LOPERAMIDE HCL 2 MG CAP PO PRN (06:13)
[2018-10-11] MEDS: HEPARIN (PORCINE) 1000 UNIT/ML (DIALYSIS) IVP PRN ×2 (06:12)
[2018-10-11] MEDS: SODIUM FERRIC GLUC 62.5 MG/5ML IVP PRN (06:50)
[2018-10-11] MEDS: LOPERAMIDE HCL 2 MG CAP PO PRN (08:48)
[2018-10-13] MEDS: HEPARIN (PORCINE) 1000 UNIT/ML (DIALYSIS) IVP PRN ×2 (06:13)
[2018-10-13] MEDS: DARBEPOETIN ESRD 100 MCG/0.5ML SYR IVP PRN (07:01)
[2018-10-16] MEDS: HEPARIN (PORCINE) 1000 UNIT/ML (DIALYSIS) IVP PRN ×2 (06:12)
[2018-10-16] MEDS ORDERED: OXYGENHOME INH (12:01)
[2018-10-18] MEDS: HEPARIN (PORCINE) 1000 UNIT/ML (DIALYSIS) IVP PRN ×2 (06:29)
[2018-10-18] MEDS: SODIUM FERRIC GLUC 62.5 MG/5ML IVP PRN (08:06)
[2018-10-20] MEDS: HEPARIN (PORCINE) 1000 UNIT/ML (DIALYSIS) IVP PRN ×2 (13:57)
[2018-10-20] MEDS: DARBEPOETIN ESRD 100 MCG/0.5ML SYR IVP PRN (14:16)
[2018-10-23] MEDS: HEPARIN (PORCINE) 1000 UNIT/ML (DIALYSIS) IVP PRN ×2 (05:59)
[2018-10-25] MEDS: HEPARIN (PORCINE) 1000 UNIT/ML (DIALYSIS) IVP PRN ×2 (06:44)
[2018-10-25] MEDS: SODIUM FERRIC GLUC 62.5 MG/5ML IVP PRN (07:02)
[2018-10-27] MEDS: DARBEPOETIN ESRD 100 MCG/0.5ML SYR IVP PRN (06:58)
[2018-10-30] MEDS: HEPARIN (PORCINE) 1000 UNIT/ML (DIALYSIS) IVP PRN ×2 (05:46)
[2018-11-01] MEDS: HEPARIN (PORCINE) 1000 UNIT/ML (DIALYSIS) IVP PRN ×2 (05:56)
[2018-11-01] MEDS: SODIUM FERRIC GLUC 62.5 MG/5ML IVP PRN (07:32)
[2018-11-01 07:44] LABS: PLATELET COUNT, AUTOMATED 181 K/uL (150-450)
[2018-11-02] MEDS ORDERED: METR-1 PO (11:33)
[2018-11-02] MEDS ORDERED: CIPR-344 PO (11:33)
[2018-11-03] MEDS: HEPARIN (PORCINE) 1000 UNIT/ML (DIALYSIS) IVP PRN ×2 (06:20)
[2018-11-03] MEDS: DARBEPOETIN ESRD 100 MCG/0.5ML SYR IVP PRN (07:02)
[2018-11-06] MEDS: HEPARIN (PORCINE) 1000 UNIT/ML (DIALYSIS) IVP PRN ×2 (05:59→06:00)
[2018-11-08] MEDS: HEPARIN (PORCINE) 1000 UNIT/ML (DIALYSIS) IVP PRN ×2 (06:08)
[2018-11-08] MEDS: SODIUM FERRIC GLUC 62.5 MG/5ML IVP PRN (06:41)
[2018-11-13] MEDS: HEPARIN (PORCINE) 1000 UNIT/ML (DIALYSIS) IVP PRN ×2 (06:21)
[2018-11-15] MEDS: HEPARIN (PORCINE) 1000 UNIT/ML (DIALYSIS) IVP PRN ×2 (06:10)
[2018-11-15] MEDS: SODIUM FERRIC GLUC 62.5 MG/5ML IVP PRN (07:59)
[2018-11-17] MEDS: HEPARIN (PORCINE) 1000 UNIT/ML (DIALYSIS) IVP PRN ×2 (06:15)
[2018-11-17] MEDS: DARBEPOETIN ESRD 100 MCG/0.5ML SYR IVP PRN (07:11)
[2018-11-20] MEDS: HEPARIN (PORCINE) 1000 UNIT/ML (DIALYSIS) IVP PRN ×2 (06:07)
[2018-11-22] MEDS: HEPARIN (PORCINE) 1000 UNIT/ML (DIALYSIS) IVP PRN ×2 (06:35)
[2018-11-22] MEDS: SODIUM FERRIC GLUC 62.5 MG/5ML IVP PRN (07:23)
[2018-11-22 07:36] LABS: PLATELET COUNT, AUTOMATED 247 K/uL (150-450)
[2018-11-24] MEDS: HEPARIN (PORCINE) 1000 UNIT/ML (DIALYSIS) IVP PRN ×2 (06:19)
[2018-11-24] MEDS: DARBEPOETIN ESRD 100 MCG/0.5ML SYR IVP PRN (07:28)
[2018-11-24] MEDS ORDERED: COMODPT OS (08:52)
[2018-11-24] MEDS ORDERED: CHOL10005 PO (08:52)
[2018-11-24] MEDS ORDERED: BRI10OD OS (08:52)
[2018-11-24] MEDS ORDERED: TAMS0.4C25 PO (08:52)
[2018-11-27] MEDS: HEPARIN (PORCINE) 1000 UNIT/ML (DIALYSIS) IVP PRN ×2 (06:02)
[2018-11-29] MEDS: HEPARIN (PORCINE) 1000 UNIT/ML (DIALYSIS) IVP PRN ×2 (06:16)
[2018-11-29] MEDS: SODIUM FERRIC GLUC 62.5 MG/5ML IVP PRN (07:06)
[2018-11-29] MEDS: DIALYSIS ACETAMINOPHEN 325 MG PO PRN (07:54)
[2018-12-01] MEDS: HEPARIN (PORCINE) 1000 UNIT/ML (DIALYSIS) IVP PRN ×2 (06:09)
[2018-12-01] MEDS: DARBEPOETIN ESRD 100 MCG/0.5ML SYR IVP PRN (07:12)
[2018-12-01] MEDS ORDERED: METR-1 PO (09:50)
[2018-12-01] MEDS ORDERED: CIPR-344 PO (09:50)
== END 2018-12-09 ==
LOC: DIAL 00:10
PROVIDERS: ATTEND Internal Medicine Nephrology
DX: E11.22 Type 2 diabetes mellitus with diabetic chronic kidney disease (principal); N18.6 End stage renal disease; I95.3 Hypotension of hemodialysis; E87.79 Other fluid overload; I25.10 Atherosclerotic heart disease of native coronary artery without angina pectoris; Z95.5 Presence of coronary angioplasty implant and graft; J44.9 Chronic obstructive pulmonary disease, unspecified; D63.1 Anemia in chronic kidney disease; E43 Unspecified severe protein-calorie malnutrition; J90 Pleural effusion, not elsewhere classified; E55.9 Vitamin D deficiency, unspecified; Z99.2 Dependence on renal dialysis
CPT/HCPCS: 82040; 82108; 82247; 82306; 82310; 82374; 82465; 82565; 82728; 82947; 83036; 83540; 83550; 83970; 84075; 84100; 84132; 84295; 84460; 84478; 84520; 85018; 85025; 86580; 86706; 87340; 90999; A4657; A9270; G0472; J0882; J1644; J2916; Q0169; 86803

== ENCOUNTER → 2018-04-27 | Outpatient (CLI) | payer MEDICARE, BC ==
[2016-05-12 10:49] VITALS: BMI 38.1
[~2018-04-27] MED LIST changes: +AMOX-559 PO; +BUM2 PO; -BUME2TAB17 PO; +FLUT16SP19 NS; +HYDR-385 PO; +LIDO15SO2 RC; -LOPERAMIDE HCL 2 MG CAP PO ONE; -PROMETHAZINE HCL 25 MG TAB PO PRN; -diphenhydr DIALYSIS 50 MG/ML IVP PRN
== END ==
LOC: LAB 12:45
PROVIDERS: ATTEND Surgery
DX: R19.7 Diarrhea, unspecified (principal)
CPT/HCPCS: 82274; 82705; 83630; 87045; 87177; 87205; 87324; 87449

== ENCOUNTER → 2018-06-19 | Outpatient (CLI) | payer MEDICARE, BC ==
[2016-05-12 10:49] VITALS: BMI 38.1
[~2018-06-19] MED LIST changes: +ACYC-50 PO; +CIPHCO RIGHT EAR; +LEVO-85 PO; +TAMS0.4C25 PO; +TRAZ50TA34 PO
== END ==
LOC: US 01:18
PROVIDERS: ATTEND Nurse Practitioner Primary Care
DX: I48.92 Unspecified atrial flutter (principal)
CPT/HCPCS: 93306

== ENCOUNTER 2018-06-21 12:44 | Inpatient (IN) | payer MEDICARE, BC ==
[~2018-06-21] VITALS: Ht 170.2 cm; Wt 114.8 kg
[2018-06-21] VITALS (13 sets, daily range): BP systolic 75–112; BP diastolic 48–83
[2018-06-21] MEDS ORDERED: POLYETHYLENE GLYCOL 17 GM PKT PO PRN (13:20)
[2018-06-21] MEDS ORDERED: [UNRECOGNIZED DRUG - OTHER] IV ONE (13:25)
[2018-06-21] MEDS ORDERED: HEPARIN* SOD/D5W 25000 U/500ML 500 ML IV ONE (13:25)
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
[2018-06-21 13:57] LABS: PLATELET COUNT, AUTOMATED 172 K/uL (150-450)
[2018-06-21] MEDS ORDERED: NS(*) 0.9% 50 ML BAG 50 ML ONE ×2 (13:57→16:07)
[2018-06-21] MEDS ORDERED: IOPAMIDOL 76% 100 ML INFUS BTL 100 ML ONE ×2 (13:57→16:07)
[2018-06-21 14:50] LABS: INR 1.03
--- NOTE | 2018-06-21 16:01 | RADIOLOGY IMAGING REPORT ---
FACILITY: [facility] PATIENT NAME: Yadiel Nguyen : 1955 MR: [id number] V: [id number] EXAM DATE: ORDERING PHYSICIAN: YADIEL SAAB TECHNOLOGIST: Location: [facility] Patient: Yadiel Nguyen : 1955 Visit/Account:[id number] Date of Sevice: 06/21/2018 Exam type: KUB SINGLE VIEW ABDOMEN History: Abdominal distention, right femoral central line placement Comparison: February 28, 2018. Findings: There is some placement of a right femoral catheter the distal tip projects just inferior to the righ t SI joint presumably within the right external iliac vein. A loop of moderately distended colon pro jects in the mid abdomen likely representing the sigmoid colon measures up to 7 cm in diameter are downey rgical clips the right upper quadrant of abdomen. Right hip arthroplasty in place and spondylotic ch anges of lumbar spine IMPRESSION: 1. Right femoral catheter tip projects just beneath the right SI joint approximately in the right ex ternal iliac vein Moderately dilated loop of colon projects in the mid abdomen measuring up to 7 cm and likely represen ts the sigmoid colon Report Dictated By: Dipti Vasques MD at 06/21/2018 3:54 PM Report E-Signed By: Dipti Vasques MD at 06/21/2018 3:56 PM WSN:[email or web address]
[2018-06-21] MEDS: HEPARIN* SOD/D5W 25000 U/500ML 500 ML IV SCH (16:19)
[2018-06-21] MEDS: GABAPENTIN 300 MG CAP PO SCH ×2 (16:22→21:07)
[2018-06-21] MEDS: INSULIN HUM ISO(NPH) 100 UN/ML 3 ML VIAL SUBQ SCH (16:57)
[2018-06-21] MEDS: MIDODRINE 2.5 MG TAB PO SCH ×2 (16:57→21:07)
--- NOTE | 2018-06-21 17:28 | OPERATIVE REPORT 1 ---
EVENT DATE: June 21, 2018 SURGEON: Yadiel Rose MD ANESTHESIOLOGIST: None. ANESTHESIA: Local. CASE MANAGEMENT RN: None. PREOPERATIVE DIAGNOSES 1. Vascular compromise of left upper extremity. 2. End-stage renal disease, on hemodialysis. 3. Difficult venous access. POSTOPERATIVE DIAGNOSES 1. Vascular compromise of left upper extremity. 2. End-stage renal disease, on hemodialysis. 3. Difficult venous access. PROCEDURE PERFORMED Placement of right femoral vein central venous line with ultrasound guidance. ESTIMATED BLOOD LOSS Minimal. SPECIMENS None. COMPLICATIONS None. INDICATIONS This is a 63-year-old male with end-stage renal disease, recently presented with some wounds on his fingertips distal to his AV fistula. This is believed to be due to vascular compromise. Patient needs to be heparinized; however, the nurses were unable to get a peripheral IV, and therefore, a central line is needed. The risks and benefits of the procedure were explained, and consent was signed. DESCRIPTION OF PROCEDURE The procedure was performed in the patient's room in the ICU. His right neck was prepped and draped in sterile fashion. Under ultrasound guidance, the Cook needle was easily advanced into the internal jugular vein. Dark red, nonpulsatile blood was returned. I threaded the guidewire; however, there was some resistance at times, and when the guidewire did go easily, patient complained of pain near his right ear. I asked for a fluoro; however, they are unable to do fluoro in the ICU. Therefore, the needle was removed and pressure held. Right groin was then prepped and draped in the normal sterile fashion. Local analgesia was injected into the dermis, and a Cook needle was easily advanced into the right femoral vein with ultrasound guidance. Dark red, nonpulsatile blood was returned. Guidewire easily threaded. Needle was removed. A small incision was made at the entry site of the guidewire. Dilator was advanced over the guidewire. Dilator was removed. After being flushed, a triple-lumen 20 cm catheter was advanced over the guidewire, and the guidewire was removed. Catheter was aspirated and flushed. All lumens flushed easily; however, only two of the lumens aspirated easily. The third lumen would drip venous blood, but I was unable to aspirate the blood. A KUB and pelvic x-ray will be performed. Catheter was secured in place with silk stitches. Appropriate dressings were applied. Patient tolerated the procedure well. There were no complications. MARLYS
--- NOTE | 2018-06-21 17:42 | RADIOLOGY IMAGING REPORT ---
FAC[place] [facility] [place]IENT NAME: Yadiel Nguyen : 1955 MR: [id number] V: [id number] EXAM DATE: ORDERING PHYSICIAN: YADIEL SAAB TECHNOLOGIST: Location: [facility] - [place] Patient: Yadiel Nguyen : 1955 Visit/Account:[id number] Date of Sevice: 06/21/2018 EXAMINATION: CT CTA EXTREMITY UPPER WITH CONTRAST - LEFT HISTORY: left upper extremity vascular compromise COMPARISON: None. TECHNIQUE: Overlapping thin sections were obtained during a bolus of IV contrast from the aortic ar ch through the left upper extremity to the left hand. Reconstruction of the source data set includes multiplanar 2D in the sagittal and coronal planes, and 3D coronal thin slab MIP series. Representativ e images have been stored on PACS. CONTRAST: 75 mL of IV Isovue-370 One of the following dose optimization techniques was utilized in the performance of this exam: Autom ated exposure control; adjustment of the mA and/or kV according to the patient's size; or use of an i terative reconstruction technique. Specific details can be referenced in the facility's radiology C T exam operational policy. FINDINGS: Aortic arch and great vessels: Mild plaque at the aortic arch. Mixed plaque causes moderate stenosi s of the origin of the right subclavian artery. Left subclavian artery: Negative. Left axillary artery: Negative. Left brachial artery: Negative. Left radial artery: The left radial artery is patent and normal in caliber. There is an arterioveno us fistula in the distal left forearm involving the left radial artery. The left radial artery is pat ent distally to the fistula. Left ulnar artery: Negative. Additional non-angiographic findings: Surgical clips in the distal forearm along the arteriovenous fistula. The veins are patent. The vein in the forearm at the arteriovenous fistula is dilated. Gynecomastia. Fusion of the C4 and C5 vertebral bodies across the disc space. IMPRESSION: No evidence of dissection, thrombosis, or significant stenosis of the arteries of the left upper extr emity. Patent arteriovenous fistula in the distal left forearm. Moderate stenosis of the origin of the right subclavian artery secondary to plaque. Report Dictated By: Solo Huddleston MD at 06/21/2018 5:15 PM Report E-Signed By: Solo Huddleston MD at 06/21/2018 5:37 PM WSN:[id number]
[2018-06-21] MEDS ORDERED: CALCIUM CARBONATE 500 MG CHEW PO SCH (21:00)
[2018-06-21] MEDS: ACYCLOVIR 200 MG CAP PO SCH (21:07)
[2018-06-21] MEDS: INSULIN HUM LISPRO 100 UN/ML 3 ML VIAL SUBQ PRN (21:08)
[2018-06-22] VITALS (15 sets, daily range): BP systolic 59–97; BP diastolic 31–56; Ht 170.2 cm; Wt 114.8 kg
[2018-06-22] MEDS: HEPARIN* SOD/D5W 25000 U/500ML 500 ML IV SCH (03:28)
--- NOTE | 2018-06-22 08:32 | Hospitalist Progress Note ---
Subjective Progress Notes Subjective No bleeding on the IV heparin. He reports skin lesions are unchanged. Physical Exam Vital Signs Date Time Temp Pulse Resp B/P (MAP) Pulse Ox O2 Delivery O2 Flow Rate FiO2 06/22/18 06:20 89 06/22/18 06:00 98.3 15 77/52 (60) 94 Nasal Cannula 2.0 Intake and Output 06/22/18 07:00 Intake Total 790 ml Balance 790 ml Intake Oral 200 ml IV Total 590 ml # Bowel Movements 7 General Appearance: Alert, Awake Cardiovascular: Regular Rate and Rhythm Respiratory: Clear to Auscultation GI: Soft and Non-Tender Extremities: Warm, Perfused, Other (left arm AV fistula with bruit) Integumentary: Other (skin lesions palmar aspect left fingers dark, dry, no drainage) Result Diagram: 06/21/18 1352 06/22/18 0458 Assessment and Plan Problems: (1) Acute occlusion of artery of upper extremity Assessment & Plan: He has accepted by Dr. Estevez for transfer once the roads are open. He has been started on a heparin infusion and close monitoring of anti-Xa levels. CTA did not show any acute occlusion, thrombosis, dissection. (2) ESRD (end stage renal disease) on dialysis Status: Chronic Assessment & Plan: He receiving dialysis yesterday and is scheduled again on Tuesday. (3) DM2 (diabetes mellitus, type 2) Status: Acute Assessment & Plan: He is on chronic treatment with NPH insulin. We have also placed him on sliding scale level #2. Exam Sepsis Risk: No Definite Risk JV TURCIOS MD Jun 22, 2018 08:32
[2018-06-22] MEDS ORDERED: FLUTICASONE PROP 0.05% 16 GM SCH (09:00)
[2018-06-22] MEDS ORDERED: ALLOPURINOL 100 MG TAB PO SCH (09:00)
[2018-06-22] MEDS ORDERED: TAMSULOSIN HCL 0.4 MG CAP PO SCH (09:00)
[2018-06-22] MEDS ORDERED: ESCITALOPRAM OXALATE 10 MG TAB PO SCH (09:00)
[2018-06-22] MEDS ORDERED: PANTOPRAZOLE SOD 40 MG TABEC PO SCH (09:00)
[2018-06-22] MEDS ORDERED: CHOLECALCIFEROL 1000 UNIT TAB PO SCH (09:00)
[2018-06-22] MEDS ORDERED: ASPIRIN 81 MG ENTERIC COATED PO SCH (09:00)
[2018-06-22] MEDS: GABAPENTIN 300 MG CAP PO SCH ×2 (09:02→14:15)
[2018-06-22] MEDS: MIDODRINE 2.5 MG TAB PO SCH ×2 (09:03→14:16)
[2018-06-22] MEDS: ACYCLOVIR 200 MG CAP PO SCH (09:03)
[2018-06-22] MEDS: INSULIN HUM ISO(NPH) 100 UN/ML 3 ML VIAL SUBQ SCH ×2 (09:04→11:40)
--- NOTE | 2018-06-22 11:11 | Hospitalist Depart ---
Discharge Summary Reason for Hosp/Final Diag: (1) Acute occlusion of artery of upper extremity Status: Acute Hospital Course & Plan: He was evaluated by Dr. Rose, who was concerned about possible acute arterial occlusion. He was kept at [facility] as all the roads were closed and unable to transfer. He was started on an IV heparin infusion and close monitoring of anti-Xa levels. CTA did not show any acute occlusion, throm bosis, dissection. He had been accepted by Dr. Estevez for transfer once the roads were open. He was re-evaluated by Dr. Rose on 06/22/18, who now thought the patient did not have acute ischemia. He consulted with Dr. Estevez and they agreed he could be treated with anti-platelet therapy and follow up closely. They did feel he may need revision of his AV fistula. (2) ESRD (end stage renal disease) on dialysis Status: Chronic Hospital Course & Plan: He received dialysis yesterday (Tuesday06/21/18) and is scheduled again on Tuesday. (3) DM2 (diabetes mellitus, type 2) Status: Acute Hospital Course & Plan: He is on chronic treatment with NPH insulin. We also placed him on sliding scale level #2 during his stay. Departure Weight (Pounds): 253 Weight (Ounces): 5.0 Result Diagram: 06/21/18 1352 06/22/18 0458 Item Value Date Time White Blood Count 7.3 k/uL 06/21/18 1352 Hemoglobin 10.8 g/dL L 06/21/18 1352 Hematocrit 30.7 % L 06/21/18 1352 Platelet Count 172 K/uL 06/21/18 1352 Sodium Level 134 mmol/L L 06/21/18 1352 Potassium Level 3.9 mmol/L 06/21/18 1352 Chloride Level 92 mmol/L L 06/21/18 1352 Carbon Dioxide Level 29 mmol/L 06/21/18 1352 Blood Urea Nitrogen 16 mg/dl 06/21/18 1352 Creatinine 3.50 mg/dl H 06/21/18 1352 Glomerular Filtration Rate Calc 17.8 06/21/18 1352 Random Glucose 278 mg/dl H 06/21/18 1352 Calcium Level 9.7 mg/dl 06/21/18 1352 Total Bilirubin 1.0 mg/dl 06/21/18 1352 Aspartate Amino Transf (AST/SGOT) 35 U/L 06/21/18 1352 Alanine Aminotransferase (ALT/SGPT) 36 U/L 06/21/18 1352 Alkaline Phosphatase 131 U/L H 06/21/18 1352 Total Protein 7.5 g/dl 06/21/18 1352 Albumin 4.0 g/dl 06/21/18 1352 Heparin Anti-Xa Act, Unfractionated 0.25 IU/mL L 06/22/18 0524 Heparin Anti-Xa Act, Unfractionated 0.48 IU/mL 06/21/18 2225 Heparin Anti-Xa Act, Unfractionated 0.10 IU/mL L 06/21/18 1352 D-Dimer Quantitative (PE/DVT) 2.61 ug/ml H 06/21/18 1352 Fibrinogen 533 mg/dL H 06/21/18 135 Activated Partial Thromboplast Time 31 seconds 06/21/18 135 Prothromb Time International Ratio 1.03 06/21/18 135 Imaging PATIENT NAME: Yadiel Nguyen : 1955 MR: [id number] V: [id number] EXAM DATE: ORDERING PHYSICIAN: YADIEL ROSE TECHNOLOGIST: Location: [facility] - [place] Patient: Yadiel Nguyen : 1955 Visit/Account:[id number] Date of Sevice: 06/21/2018 EXAMINATION: CT CTA EXTREMITY UPPER WITH CONTRAST - LEFT HISTORY: left upper extremity vascular compromise COMPARISON: None. TECHNIQUE: Overlapping thin sections were obtained during a bolus of IV contrast from the aortic arch through the left upper extremity to the left hand. Reconstruction of the source data set includes multiplanar 2D in the sagittal and coronal planes, and 3D coronal thin slab MIP series. [employer] images have been stored on PACS. CONTRAST: 75 mL of IV Isovue-370 One of the following dose optimization techniques was utilized in the performance of this exam: Automated exposure control; adjustment of the mA and/or kV according to the patient's size; or use of an iterative reconstruction technique. Specific details can be referenced in the facility's radiology CT exam operational policy. FINDINGS: Aortic arch and great vessels: Mild plaque at the aortic arch. Mixed plaque causes moderate stenosis of the origin of the right subclavian artery. Left subclavian artery: Negative. Left axillary artery: Negative. Left brachial artery: Negative. Left radial artery: The left radial artery is patent and normal in caliber. There is an arteriovenous fistula in the distal left forearm involving the left radial artery. The left radial artery is patent distally to the fistula. Left ulnar artery: Negative. Additional non-angiographic findings: Surgical clips in the distal forearm along the arteriovenous fistula. The veins are patent. The vein in the forearm at the arteriovenous fistula is dilated. Gynecomastia. Fusion of the C4 and C5 vertebral bodies across the disc space. IMPRESSION: No evidence of dissection, thrombosis, or significant stenosis of the arteries of the left upper extremity. Patent arteriovenous fistula in the distal left forearm. Moderate stenosis of the origin of the right subclavian artery secondary to plaque. Report Dictated By: Solo Huddleston MD at 06/21/2018 5:15 PM Report E-Signed By: Solo Huddleston MD at 06/21/2018 5:37 PM WSN:[id number] PATIENT NAME: Yadiel Nguyen : 1955 MR: [id number] V: [id number] EXAM DATE: ORDERING PHYSICIAN: YADIEL ROSE TECHNOLOGIST: Location: [facility] - [place] Patient: Yadiel Nguyen : 1955 Visit/Account:[id number] Date of Sevice: 06/21/2018 Exam type: KUB SINGLE VIEW ABDOMEN History: Abdominal distention, right femoral central line placement Comparison: February 28, 2018. Findings: There is some placement of a right femoral catheter the distal tip projects just inferior to the right SI joint presumably within the right external iliac vein. A loop of moderately distended colon projects in the mid abdomen likely representing the sigmoid colon measures up to 7 cm in diameter are surgical clips the right upper quadrant of abdomen. Right hip arthroplasty in place and spondylotic changes of lumbar spine IMPRESSION: 1. Right femoral catheter tip projects just beneath the right SI joint approximately in the right external iliac vein Moderately dilated loop of colon projects in the mid abdomen measuring up to 7 cm and likely represents the sigmoid colon Report Dictated By: Dipti Vasques MD at 06/21/2018 3:54 PM Report E-Signed By: Dipti Vasques MD at 06/21/2018 3:56 PM WSN:[email or web address] Condition: Improved Discharge: Home Follow-Up Labs: Finger Sticks (AC and HS) Time Spent: > 30 min Discharge Instructions Home Meds Active Scripts Allopurinol (ALLOPURINOL) 100 Mg Tablet, 1 TAB PO QDAY, #90 TAB 4 Refills Prov:ELSIE PATRICK MD 06/16/18 Cephalexin 500 Mg Tab (KEFLEX 500 MG TAB) 500 Mg Tablet, 1 TAB PO QID for 10 Days, #40 TAB 0 Refills Prov:AMANDA LANIER DNP, [facility]- 06/12/18 Escitalopram Oxalate (ESCITALOPRAM OXALATE) 10 Mg Tablet, 10 MG PO QDAY, #30 TAB 3 Refills Prov:ELSIE PATRICK MD 05/03/18 Fluticasone Prop 50 Mcg Ns (FLONASE 50 MCG NS) 16 Gm [place].susp, 2 SPRAYS NS QDAY for 7 Days, #1 BOT 0 Refills Prov:AMANDA LANIER DNP, [facility]- 04/28/18 Gabapentin (GABAPENTIN) 300 Mg Capsule, 300 MG PO TID, #90 CAPSULE 6 Refills Prov:ELSIE PATRICK MD 04/05/18 Flash Glucose Sensor (Freestyle Mylene 14 Day Sensor) 1 Each Kit, UNIT Q2WK, #2 11 Refills Prov:ELSIE PATRICK MD 04/05/18 Flash Glucose [place] (Freestyle Mylene 14 Day [place]) 1 Each Each, UNIT TD DIRECTED, #1 Prov:ELSIE PATRICK MD 04/05/18 Midodrine Hcl (MIDODRINE HCL) 10 Mg Tablet, 0.5 TAB PO TID, #100 TAB 5 Refills Half tablet 3 times a day and take 1 tablet on Tuesday prior to dialysis Prov:ELSIE PATRICK MD 03/28/18 Blood Sugar Diagnostic (FREESTYLE LITE TEST STRIPS) 1 Each Strip, 1 EACH MC QID, #100 STRIP 7 Refills use four times a day to test blood sugar Prov:ELSIE PATRICK MD 12/20/17 Pantoprazole Sodium (PANTOPRAZOLE SODIUM) 40 Mg Tablet.dr, 1 TAB PO QDAY, #90 TAB.SR 3 Refills Prov:ELSIE PATRICK MD 11/17/17 Polyethylene Glycol 3350 (POLYETHYLENE GLYCOL 3350) 17 Gm Powd.pack, 17 GM PO QDAY PRN for CONSTIPATION, #30 PACKET Prov:ELSIE PATRICK MD 01/05/17 Reported Medications Acyclovir (ACYCLOVIR) 400 Mg Tablet, 400 MG PO BID, TAB 06/12/18 Insulin Regular, Human (HUMULIN R) 100 Unit/1 Ml Vial, UNIT IJ 1-4XD, VIAL 06/12/18 Insulin NPH Human Isophane (Humulin N) 100 Unit/Ml Vial, 18 UNITS SUBQ TIDAC 06/12/18 Cholecalciferol (Vitamin D3) (VITAMIN D3) 1,000 Unit Tablet, 5000 UNIT PO DAILY, TAB 06/12/18 Tamsulosin Hcl (FLOMAX) 0.4 Mg Cap.er.24h, 0.4 MG PO DAILY, CAP 06/12/18 Calcium Carbonate (TUMS) 300 Mg Tab.chew, 1000 MG PO QHS, TAB.CHEW 12/28/17 Bacitracin (BACITRACIN) 3.5 Gm Oint...g., 3.5 GM OP 7x per day 02/14/17 Aspirin (ASPIR 81) 81 Mg Tablet.dr, 81 MG PO QDAY, TAB 01/05/17 Vit B Cmplx 3/Fa/Vit C/Biotin (ERNST-NAV RX TABLET) 1 Each Tablet, 1 EACH PO DAILY 04/21/16 Diet: Diabetic (Renal diet) Activity: As Tolerated Special Instructions: Follow up with Dr. Rose/Dr. Estevez in next 3-5 days or sooner if any problems. Follow up with Dialysis tomorrow as scheduled. Follow up with Dr. Patrick/Amanda Lanier [facility] in next 5-7 days or sooner if any problems. Copies to: ELSIE PATRICK MD; AMANDA LANIER [facility], [facility] ; Venous Thromboembolism Antithrombotics Is Pt On Any Antithrombotics?: Yes JV TURCIOS MD Jun 22, 2018 11:11
[2018-06-22] MEDS: INSULIN HUM LISPRO 100 UN/ML 3 ML VIAL SUBQ PRN (11:41)
--- NOTE | 2018-06-22 12:46 | General Surgery Progress Note ---
Subjective Progress Notes Subjective pt has some pain in his left hand still but overall feels much better. no further n/v after last night. Physical Exam Vital Signs Date Time Temp Pulse Resp B/P (MAP) Pulse Ox O2 Delivery O2 Flow Rate FiO2 06/22/18 10:00 93 06/22/18 10:00 11 64/47 (53) 91 Nasal Cannula 2.0 06/22/18 08:00 99.4 Intake and Output 06/22/18 07:00 Intake Total 790 ml Balance 790 ml Intake Oral 200 ml IV Total 590 ml # Bowel Movements 7 General Appearance: Alert, Awake, No Acute Distress Extremities: Other (left upper extremity and hand is now warm and pink. the scab on the 2 digit has fallen off and the tissure looks healthy. there are dry wounds on digits 3 and 5. ) Result Diagram: 06/21/18 1352 06/22/18 8365 Assessment and Plan Problems: (1) Acute occlusion of artery of upper extremity Status: Acute Assessment & Plan: the left hand is much improved since yesterday. pt has been on heparin. cta showed patent vessels of the left upper ext. i discussed with dr. amezquita and we both agree that pt does not need immediate [facility]. he will need f/u soon with his vascular surgeon. he will go home on an antipltlt agent. Exam Sepsis Risk: No Definite Risk KWASI SAAB Jun 22, 2018 12:46
--- NOTE | 2018-06-23 09:23 | Medical Nutrition Therapy ---
Nutrition Anthropometrics Height (Inches): 67.00 Height (Calculated Centimeters: 170.638145 Weight (Pounds): 253 Weight (Calculated Kilograms): 114.901 BMI: 39.7 Abad Nutrition Score: Adequate Abad Nutrition Risk Score: 15 Dietary Referral Nutrition Risk Factors: Nutrition Risk Comment: Physical Findings Physical Appearance: Obese BMI 30-39 Skin Appearance Skin Appearance: Edema Edema Location Modifier: Both Edema Location: Lower Extremity Type of Edema: Degree of Edema: 1+ Gastrointestinal Symptoms GI Symtoms: Diarrhea Tube Present: Bowel Sounds: Recent Bowel Pattern: Diarrhea Stool Characteristics: Loose Nutritional Diagnosis Nutritional Risk Acuity 1: Acute/ES Renal Past Medical History: T2DM, ESRD, HTN, weakness, peptic ulcer, CARLIN, somnolence, CHF, gastroparesis, diabetic neuropathy, CAD. Nutritional Acuity: 1-High Nutrition Diagnosis: Increased Nutrient Needs, Inconsistent Carb. Intake Nutrition Etiology: Physiological Causes Nutrition Problem/Etiology/Sym: Inconsistent carb intake related to physiological causes as evidenced by dx of DMT2, BMI 39.7, and elevated WBG (254-261) and RBG (183-278) levels. Energy Requirement: 2498 (MSJ, 1.1 TEF, 1.2 AF) Adjusted Energy Requirement Re: 1998 (-500) Protein Requirement: 92 (0.8g AA/kg of BW) Fluid Requirement: 1998 (0.8ml/kcal) Diet Type: Diabetic Nutrition Intervention: Cont diet as ordered, Check glucose Nutrition Monitoring & Eval Nutrition Goals: Eat 50-100% Meal RD Patient Assessment Time: [address] Assessment Type: RD Assessment Patient Nutrition Acuity: 1-High Follow Up Date: Jun 26, 2018 Nutritional Comment: 06/22: Pt admitted while he was doing dialysis and discolored lesions on his left hand were discovered. Pt was dc with acute occulasion of artery of upper extremity, ESRD, and DMT2. Pt has a hx of T2DM, ESRD, HTN, weakness, peptic ulcer, CARLIN, somnolence, CHF, gastroparesis, diabetic neuropathy, CAD. Pt is currently taking heparin (anticoagulant). Pt has elevated creatinine (3.5-4.9), WBG (254-261), RBG (183-278), and alkaline phosphatase (131). Pt is on a diabetic diet with no intake recorded at this time. -ABDIRAHMAN ECKERT Jun 22, 2018 08:24
[2018-06-23] MEDS ORDERED: INFLUENZA VIRUS VAC 0.5ML SYR IM ONLY ONE (13:20)
--- NOTE | 2018-06-28 08:43 | RADIOLOGY IMAGING REPORT ---
FACILITY: [facility] [place] PATIENT NAME: Yadiel Nguyen : 1955 MR: [id number] V: [id number] EXAM DATE: ORDERING PHYSICIAN: MELISSA AVILES TECHNOLOGIST: Location: Patient: Yadiel Nguyen : 1955 Visit/Account:[id number] Date of Sevice: 06/21/2018 EXAMINATION: CT CTA EXTREMITY UPPER WITH CONTRAST - LEFT HISTORY: left upper extremity vascular compromise COMPARISON: None. TECHNIQUE: Overlapping thin sections were obtained during a bolus of IV contrast from the aortic ar ch through the left upper extremity to the left hand. Reconstruction of the source data set includes multiplanar 2D in the sagittal and coronal planes, and 3D coronal thin slab MIP series. Representativ e images have been stored on PACS. CONTRAST: 75 mL of IV Isovue-370 One of the following dose optimization techniques was utilized in the performance of this exam: Autom ated exposure control; adjustment of the mA and/or kV according to the patient's size; or use of an i terative reconstruction technique. Specific details can be referenced in the facility's radiology C T exam operational policy. FINDINGS: Aortic arch and great vessels: Mild plaque at the aortic arch. Mixed plaque causes moderate stenosi s of the origin of the right subclavian artery. Left subclavian artery: Negative. Left axillary artery: Negative. Left brachial artery: Negative. Left radial artery: The left radial artery is patent and normal in caliber. There is an arterioveno us fistula in the distal left forearm involving the left radial artery. The left radial artery is pat ent distally to the fistula. Left ulnar artery: Negative. Additional non-angiographic findings: Surgical clips in the distal forearm along the arteriovenous fistula. The veins are patent. The vein in the forearm at the arteriovenous fistula is dilated. Gynecomastia. Fusion of the C4 and C5 vertebral bodies across the disc space. IMPRESSION: No evidence of dissection, thrombosis, or significant stenosis of the arteries of the left upper extr emity. Patent arteriovenous fistula in the distal left forearm. Moderate stenosis of the origin of the right subclavian artery secondary to plaque. Report Dictated By: Solo Huddleston MD at 06/21/2018 5:15 PM Report E-Signed By: Solo Huddleston MD at 06/21/2018 5:37 PM WSN:[id number]
== END 2018-06-22 14:35 | disposition home health service (06) | DRG 299 ==
LOC: ICU 12:44
PROVIDERS: ADMIT Family Medicine; ATTEND Family Medicine
PROC: 06HM33Z Insertion of Infusion Device into Right Femoral Vein, Percutaneous Approach (ICD-10-PCS; principal; 2018-06-21)
PROC: B54BZZA Ultrasonography of Right Lower Extremity Veins, Guidance (ICD-10-PCS; 2018-06-21)
DX: I74.2 Embolism and thrombosis of arteries of the upper extremities (principal); N18.6 End stage renal disease; E11.22 Type 2 diabetes mellitus with diabetic chronic kidney disease; E11.42 Type 2 diabetes mellitus with diabetic polyneuropathy; I25.10 Atherosclerotic heart disease of native coronary artery without angina pectoris; E11.43 Type 2 diabetes mellitus with diabetic autonomic (poly)neuropathy; K31.84 Gastroparesis; I50.9 Heart failure, unspecified; Z99.2 Dependence on renal dialysis; Z79.4 Long term (current) use of insulin; Z90.49 Acquired absence of other specified parts of digestive tract
CPT/HCPCS: 36415; 36416; 36569; 73206; 74018; 82040; 82247; 82310; 82374; 82435; 82565; 82947; 82948; 84075; 84132; 84155; 84295; 84450; 84460; 84520; 85025; 85049; 85379; 85384; 85520; 85610; 85730; J1644; J7050; Q9967

== ENCOUNTER 2018-06-22 21:30 | Emergency (ER) | payer MEDICARE, BC ==
[2018-06-22 08:12] VITALS: Wt 114.9 kg
--- NOTE | 2018-06-22 21:37 | ER Report ---
History and Physical Time Seen By MD: 21:29 HPI/ROS CHIEF COMPLAINT: Altered mental status, hallucination HISTORY OF PRESENT ILLNESS: 63-year-old male released from the hospital today after concern over an arterial thrombus in one of his arms. She was started on a heparin drip and maintained in the hospital because the roads were closed. He was accepted to [facility] under the care of Dr. Herb nova. After a CT scan showed no obvious thrombus in the artery to his upper extremities. He was started on a platelet age and and discharged home and advised to follow-up. Patient has end-stage renal disease on dialysis. He has an intact AV fistula in his left arm. There is a thrill present. Tonight he went to the bathroom at a large bowel movement, which was very painful. Patient subsequently became unresponsive and hypotensive afterwards. On arrival of EMS. He had a pressure of 74/40. EMS established a line in his right arm and administered 20 mics of epinephrine which brought his pressure up to 90. He woke up and began to re ceive on properly. He is alert and oriented 3. On arrival to the ER. He is complaining of some right lower quadrant abdominal pain. Patient denies shortness of breath or chest pain. Fingerstick glucose per EMS was 183. Patient does not make any urine. REVIEW OF SYSTEMS: Respiratory: No cough, no dyspnea. Cardiovascular: No chest pain, no palpitations. Gastrointestinal: No vomiting, no abdominal pain. Musculoskeletal: No back pain. Allergies: Coded Allergies: ferrous gluconate (Verified Adverse Reaction, Intermediate, Severe emesis immediately, 06/22/18) Oral only Home Meds Active Scripts Allopurinol (ALLOPURINOL) 100 Mg Tablet, 1 TAB PO QDAY, #90 TAB 4 Refills Prov:ELSIE RUBIO MD 06/16/18 Cephalexin 500 Mg Tab (KEFLEX 500 MG TAB) 500 Mg Tablet, 1 TAB PO QID for 10 Days, #40 TAB 0 Refills Prov:AMANDA LANIER DNP, BINDERY PRODUCTION MANAGER-BC 06/12/18 Escitalopram Oxalate (ESCITALOPRAM OXALATE) 10 Mg Tablet, 10 MG PO QDAY, #30 TAB 3 Refills Prov:ELSIE RUBIO MD 05/03/18 Fluticasone Prop 50 Mcg Ns (FLONASE 50 MCG NS) 16 Gm Powell.susp, 2 SPRAYS NS QDAY for 7 Days, #1 BOT 0 Refills Prov:AMANDA LANIER DNP, BINDERY PRODUCTION MANAGER-BC 04/28/18 Gabapentin (GABAPENTIN) 300 Mg Capsule, 300 MG PO TID, #90 CAPSULE 6 Refills Prov:ELSIE RUBIO MD 04/05/18 Flash Glucose Sensor (Freestyle Mylene 14 Day Sensor) 1 Each Kit, UNIT Q2WK, #2 11 Refills Prov:ELSIE RUBIO MD 04/05/18 Flash Glucose Scanning [place] (Freestyle Mylene 14 Day [place]) 1 Each Each, UNIT TD DIRECTED, #1 Prov:ELSIE RUBIO MD 04/05/18 Midodrine Hcl (MIDODRINE HCL) 10 Mg Tablet, 0.5 TAB PO TID, #100 TAB 5 Refills Half tablet 3 times a day and take 1 tablet on Tuesday prior to dialysis Prov:ELSIE RUBIO MD 03/28/18 Blood Sugar Diagnostic (FREESTYLE LITE TEST STRIPS) 1 Each Strip, 1 EACH MC QID, #100 STRIP 7 Refills use four times a day to test blood sugar Prov:ELSIE RUBIO MD 12/20/17 Pantoprazole Sodium (PANTOPRAZOLE SODIUM) 40 Mg Tablet.dr, 1 TAB PO QDAY, #90 TAB.SR 3 Refills Prov:ELSIE RUBIO MD 11/17/17 Polyethylene Glycol 3350 (POLYETHYLENE GLYCOL 3350) 17 Gm Powd.pack, 17 GM PO QDAY PRN for CONSTIPATION, #30 PACKET Prov:ELSIE RUBIO MD 01/05/17 Reported Medications Acyclovir (ACYCLOVIR) 400 Mg Tablet, 400 MG PO BID, TAB 06/12/18 Insulin Regular, Human (HUMULIN R) 100 Unit/1 Ml Vial, UNIT IJ 1-4XD, VIAL 06/12/18 Insulin NPH Human Isophane (Humulin N) 100 Unit/Ml Vial, 18 UNITS SUBQ TIDAC 06/12/18 Cholecalciferol (Vitamin D3) (VITAMIN D3) 1,000 Unit Tablet, 5000 UNIT PO DAILY, TAB 06/12/18 Calcium Carbonate (TUMS) 300 Mg Tab.chew, 1000 MG PO QHS, TAB.CHEW 12/28/17 Bacitracin (BACITRACIN) 3.5 Gm Oint...g., 3.5 GM OP 7x per day 02/14/17 Aspirin (ASPIR 81) 81 Mg Tablet.dr, 81 MG PO QDAY, TAB 01/05/17 Vit B Cmplx 3/Fa/Vit C/Biotin (ERNST-NAV RX TABLET) 1 Each Tablet, 1 EACH PO DAILY 04/21/16 Discontinued Reported Medications Tamsulosin Hcl (FLOMAX) 0.4 Mg Cap.er.24h, 0.4 MG PO DAILY, CAP 06/12/18 Past Medical/Surgical History History Problems: (1) DM2 (diabetes mellitus, type 2) Status: Acute (2) CHF (congestive heart failure) Status: Chronic (3) Diabetic gastroparesis Status: Chronic (4) CARLIN (obstructive sleep apnea) Status: Chronic (5) Peripheral neuropathy (6) Diabetic neuropathy Status: Chronic (7) ESRD (end stage renal disease) on dialysis Status: Chronic (8) CAD (coronary artery disease) Status: Chronic Reviewed Nurses Notes: Yes Old Medical Records Reviewed: Yes Hx Smoking: Yes (QUIT 2015) Smoking Status: Former Smoker Hx Substance Use Disorder: No Hx Alcohol Use: No Constitutional Vital Sign - Last 24 Hours 06/22/18 06/22/18 06/22/18 06/22/18 21:30 21:32 21:35 21:38 Temp 99.0 Pulse ??? 100 ??? Resp 18 B/P (MAP) 83/56 83/56 (65) Pulse Ox 97 O2 Delivery Nasal Cannula 06/22/18 06/22/18 06/22/18 06/22/18 21:40 21:42 21:45 21:50 Pulse 143 98 99 Resp 9 10 9 Pulse Ox 82 99 98 O2 Flow Rate 4.0 06/22/18 06/22/18 06/22/18 06/22/18 21:55 22:00 22:05 22:10 Pulse 97 96 96 97 Resp 12 13 14 13 B/P (MAP) ???/??? (1665) 68/45 (53) Pulse Ox 100 99 99 94 06/22/18 06/22/18 06/22/18 06/22/18 22:15 22:20 22:25 22:30 Pulse 95 94 95 90 Resp 29 18 16 16 Pulse Ox 98 99 98 100 06/22/18 06/22/18 06/22/18 06/22/18 22:31 22:34 22:35 22:40 Pulse 94 94 Resp 8 11 B/P (MAP) 64/43 (50) 62/46 (51) Pulse Ox 100 100 06/22/18 06/22/18 06/22/18 06/22/18 22:45 22:46 22:50 22:55 Pulse 94 93 96 Resp 13 30 14 B/P (MAP) 73/54 (60) Pulse Ox 98 99 99 06/22/18 06/22/18 06/22/18 06/22/18 23:00 23:05 23:10 23:15 Pulse 94 93 94 ??? Resp 13 0 12 B/P (MAP) 60/51 (54) ???/??? (1665) Pulse Ox 99 100 100 06/22/18 06/22/18 06/22/18 06/22/18 23:20 23:25 23:30 23:35 Pulse ? 95 95 Resp 7 19 B/P (MAP) 68/53 (58) Pulse Ox 94 94 06/22/18 06/22/18 06/22/18 06/22/18 23:40 23:45 23:50 23:55 Pulse 95 93 92 92 Resp 25 21 17 16 B/P (MAP) 69/50 (56) Pulse Ox 100 96 94 96 06/23/18 06/23/18 06/23/18 06/23/18 00:05 00:10 00:15 00:20 Pulse 93 92 91 94 Resp 14 12 10 16 B/P (MAP) 54/38 (43) Pulse Ox 97 96 98 98 06/23/18 06/23/18 06/23/18 06/23/18 00:30 00:35 00:40 00:45 Pulse 93 94 94 Resp 11 16 14 B/P (MAP) 60/42 (48) 71/31 (44) Pulse Ox 97 98 97 06/23/18 06/23/18 06/23/18 06/23/18 00:50 00:55 01:00 01:05 Pulse 89 90 90 90 Resp 7 0 17 18 B/P (MAP) 60/42 (48) Pulse Ox 96 96 97 98 06/23/18 06/23/18 06/23/1806/23/19 01:10 01:15 01:20 01:25 Pulse 91 91 91 91 Resp 17 13 14 22 B/P (MAP) 59/40 (46) Pulse Ox 100 99 98 99 06/23/18 06/23/18 06/23/18 06/23/18 01:30 01:35 01:39 01:40 Pulse 91 91 91 Resp 20 9 15 B/P (MAP) 65/45 (52) Pulse Ox 99 98 99 06/23/18 06/23/18 06/23/18 06/23/18 01:45 01:50 01:55 02:00 Pulse 91 91 92 90 Resp 15 12 16 20 B/P (MAP) 63/44 (50) 73/45 (54) Pulse Ox 99 99 98 97 06/23/18 06/23/18 06/23/18 06/23/18 02:05 02:10 02:13 02:15 Pulse 92 92 92 Resp 15 14 16 B/P (MAP) 73/49 (57) Pulse Ox 97 97 97 06/23/18 06/23/18 06/23/18 06/23/18 02:20 02:25 02:30 02:35 Pulse 92 92 90 90 Resp 14 17 8 8 B/P (MAP) 78/44 (55) 66/43 (51) Pulse Ox 95 98 97 98 06/23/18 06/23/18 06/23/18 06/23/18 02:42 02:47 02:50 03:00 Pulse 90 90 Resp 11 B/P (MAP) 68/45 (53) 61/49 (53) Pulse Ox 97 06/23/18 06/23/18 06/23/18 06/23/18 03:02 03:07 03:10 03:12 Pulse 92 92 93 Resp 14 16 13 B/P (MAP) 75/51 (59) Pulse Ox 98 98 99 06/23/18 06/23/18 06/23/18 06/23/18 03:17 03:20 03:22 03:24 Pulse 94 87 Resp 16 B/P (MAP) 66/48 (54) 109/64 (79) Pulse Ox 98 06/23/18 06/23/18 06/23/18 06/23/18 03:25 03:27 03:30 03:32 Pulse 88 88 Resp 17 10 B/P (MAP) 108/60 (76) 111/65 (80) Pulse Ox 98 97 06/23/18 06/23/18 06/23/18 06/23/18 03:35 03:37 03:45 03:50 Pulse 88 B/P (MAP) 106/61 (76) 97/53 (68) 101/57 (72) 06/23/18 06/23/18 06/23/18 06/23/18 03:52 03:57 04:00 04:02 Pulse 95 91 92 Resp 18 19 17 B/P (MAP) 91/57 (68) Pulse Ox 97 97 06/23/18 04:05 B/P (MAP) 97/58 (71) Intake and Output 06/22/18 06/22/18 06/23/18 15:00 23:00 07:00 Intake Total 2183 ml Balance 2183 ml Physical Exam Hypotension, O2 sat low requiring supplemental O2 3 L to maintain saturations in the low 90s General Appearance: The patient is alert, has no immediate need for airway protection and no current signs of toxicity. Alert and oriented 3 HEENT: Pupils equal and round no injection. Oral fornix without redness or exudate Respiratory: Chest is non tender, lungs are clear to auscultation. No Rales Cardiac: regular rate and rhythm, no murmur Gastrointestinal: Abdomen is soft, mild right lower quadrant tenderness no masses, bowel sounds normal. Musculoskeletal: Neck: Neck is supple and non tender. Extremities have full range of motion and are non tender. Skin: No rashes or lesions. DIFFERENTIAL DIAGNOSIS: After history and physical exam differential diagnosis was considered for altered mental status including but not limited to hypoglycemia, infectious process, electrolyte abnormality, head injury and intoxicants. Medical Decision Making Data Points Result Diagram: 06/22/18220606/22/182206 Laboratory Hematology Test 06/22/18 22:07 06/23/18 01:35 Red Blood Count 2.87 M/uL (4.00-5.60) Mean Corpuscular Volume 104.8 fL (80.0-96.0) Mean Corpuscular Hemoglobin 35.9 pg (26.0-33.0) Mean Corpuscular Hemoglobin Concent 34.3 g/dL (32.0-36.0) Red Cell Distribution Width 15.9 % (11.5-14.5) Mean Platelet Volume 8.0 fL (7.2-11.1) Neutrophils (%) (Auto) 87.8 % (39.4-72.5) Lymphocytes (%) (Auto) 6.8 % (17.6-49.6) Monocytes (%) (Auto) 4.9 % (4.1-12.4) Eosinophils (%) (Auto) 0.2 % (0.4-6.7) Basophils (%) (Auto) 0.3 % (0.3-1.4) Nucleated RBC Relative Count (auto) 0.1 /100WBC Neutrophils # (Auto) 13.2 K/uL (2.0-7.4) Lymphocytes # (Auto) 1.0 K/uL (1.3-3.6) Monocytes # (Auto) 0.7 K/uL (0.3-1.0) Eosinophils # (Auto) 0.0 K/uL (0.0-0.5) Basophils # (Auto) 0.0 K/uL (0.0-0.1) Nucleated RBC Absolute Count (auto) 0.01 K/uL Peripheral Blood Smear Yes Y/N Prothrombin Time 15.3 seconds (12.0-14.4) Prothromb Time International Ratio 1.20 Activated Partial Thromboplast Time 36 seconds (23-35) D-Dimer Quantitative (PE/DVT) 2.08 ug/ml (0-0.50) Sodium Level 135 mmol/L (137-145) Potassium Level 4.0 mmol/L (3.5-5.0) Chloride Level 88 mmol/L (98-107) Carbon Dioxide Level 30 mmol/L (22-30) Blood Urea Nitrogen 31 mg/dl (9-21) Creatinine 7.30 mg/dl (0.66-1.25) Glomerular Filtration Rate Calc 7.6 Random Glucose 212 mg/dl (75-110) Calcium Level 9.3 mg/dl (8.4-10.2) Total Bilirubin 1.3 mg/dl (0.2-1.3) Aspartate Amino Transf (AST/SGOT) 27 U/L (0-35) Alanine Aminotransferase (ALT/SGPT) 34 U/L (0-56) Alkaline Phosphatase 113 U/L (0-126) Troponin I 0.023 ng/ml B-Type Natriuretic Peptide 671 pg/ml (0-100) Total Protein 7.8 g/dl (6.3-8.2) Albumin 4.1 g/dl (3.5-5.0) Lactate 1.9 mmol/L (0.7-2.1) Chemistry Test 06/22/18 22:07 06/23/18 01:35 White Blood Count 15.1 k/uL (4.5-11.0) Red Blood Count 2.87 M/uL (4.00-5.60) Hemoglobin 10.3 g/dL (14.0-18.0) Hematocrit 30.0 % (42.0-52.0) Mean Corpuscular Volume 104.8 fL (80.0-96.0) Mean Corpuscular Hemoglobin 35.9 pg (26.0-33.0) Mean Corpuscular Hemoglobin Concent 34.3 g/dL (32.0-36.0) Red Cell Distribution Width 15.9 % (11.5-14.5) Platelet Count 187 K/uL (150-450) Mean Platelet Volume 8.0 fL (7.2-11.1) Neutrophils (%) (Auto) 87.8 % (39.4-72.5) Lymphocytes (%) (Auto) 6.8 % (17.6-49.6) Monocytes (%) (Auto) 4.9 % (4.1-12.4) Eosinophils (%) (Auto) 0.2 % (0.4-6.7) Basophils (%) (Auto) 0.3 % (0.3-1.4) Nucleated RBC Relative Count (auto) 0.1 /100WBC Neutrophils # (Auto) 13.2 K/uL (2.0-7.4) Lymphocytes # (Auto) 1.0 K/uL (1.3-3.6) Monocytes # (Auto) 0.7 K/uL (0.3-1.0) Eosinophils # (Auto) 0.0 K/uL (0.0-0.5) Basophils # (Auto) 0.0 K/uL (0.0-0.1) Nucleated RBC Absolute Count (auto) 0.01 K/uL Peripheral Blood Smear Yes Y/N Prothrombin Time 15.3 seconds (12.0-14.4) Prothromb Time International Ratio 1.20 Activated Partial Thromboplast Time 36 seconds (23-35) D-Dimer Quantitative (PE/DVT) 2.08 ug/ml (0-0.50) Glomerular Filtration Rate Calc 7.6 Calcium Level 9.3 mg/dl (8.4-10.2) Total Bilirubin 1.3 mg/dl (0.2-1.3) Aspartate Amino Transf (AST/SGOT) 27 U/L (0-35) Alanine Aminotransferase (ALT/SGPT) 34 U/L (0-56) Alkaline Phosphatase 113 U/L (0-126) Troponin I 0.023 ng/ml B-Type Natriuretic Peptide 671 pg/ml (0-100) Total Protein 7.8 g/dl (6.3-8.2) Albumin 4.1 g/dl (3.5-5.0) Lactate 1.9 mmol/L (0.7-2.1) Coagulation Test 06/22/18 22:07 Prothrombin Time 15.3 seconds Prothromb Time International Ratio 1.20 Activated Partial Thromboplast Time 36 seconds D-Dimer Quantitative (PE/DVT) 2.08 ug/ml Microbiology Microbiology Date/Time Source Procedure Growth Status 06/22/18 22:25 Blood Peripheral Draw Blood Culture - Preliminary NO GROWTH AFTER 1 DAY, REINCUBATED Resulted 06/22/18 22:07 Blood Peripheral Draw Blood Culture - Preliminary NO GROWTH AFTER 1 DAY, REINCUBATED Resulted EKG/Imaging EKG Interpretation 12 lead EK Rhythm: normal sinus rhythm Moss: normal QRS: Low voltage QRS, prolonged QT ST segments: Nonspecific ST and T-wave changes, comparison to previous EKG Imaging X-ray: Single view portable chest x-ray was obtained. I viewed the images myself on the PACS system. My interpretation of the images is: No infiltrate, no effusion, enlarged mediastinum, unchanged from previous films. The radiolo gist interpretation had no clinically significant variation from this interpretation. Results: CT scan of the head without contrast was obtained. The results of the study are CT Head without contrast Indication: Altered mental status. Comparison: 01/24/2017. Technique: Axial CT images were obtained through the brain from the skull base to the vertex without administration of IV contrast. One of the following dose optimization techniques was utilized in the performance of this exam: Automated exposure control; adjustment of the mA and/or kV according to the patient's s ize; or use of an iterative reconstruction technique. Specific details can be referenced in the facility's radiology CT exam operational policy. Findings: No evidence of mass, mass effect, or midline shift. No acute intracranial hemorrhage or acute territorial infarction. Skull is nonacute. Lens surgery on the left. Mild mucosal thickening with a small amount of fluid in the right maxillary si nus. Right mastoid effusion. IMPRESSION: 1. No acute intracranial abnormality. 2. Mild right maxillary sinus disease. 3. Right mastoid effusion. The study was read by the radiologist. I viewed the images myself on the PACS system. ED Course/Re-evaluation Clinical Indication for ER IV: Hydration, Hypotention, IV Access ED Course Patient was admitted to an examination room. H&P was done. The differential diagnoses was considered. Patient with altered mental status hypotensive and low-grade fever. Patient persist discharged from the hospital. He had a central line. Patient returns with normal mental status after being brought in by EMS. He received epinephrine IV to bring up his pressure into the 90s. Fluid resuscitation was initiated. Diagnostic evaluation was undertaken. Patient's white blood cell count is grossly elevated. Lactate elevated at 3.8. His creatinine has gone from 4.9 to 7.3. Patient was pancultured. Chest x-ray shows no obvious infiltrate. Patient pressure responded to fluid boluses. Patient's repeat lactate was down to 1.9. Patient complaining of significant right lower abdominal pain, likely from the femoral line that was inserted there. 06/23/2018 12:59:32 am case discussed with Dr. Russ hospitalist at [facility] except the patient for transfer to her facility. 06/23/2018 1:47:39 am is discussed with Dr. Vincent Tompkins regarding central venous access. A left femoral line was established. More aggressive fluid resuscitation was initiated. After 2 L the patient still remained hypotensive. Norepinephrine drip was initiated 06/23/2018 3:12:27 am air ambulance helicopter transport was confirmed. They will be here in 30-40 minutes. Decision to Disposition Date: Jun 22, 2018 Decision to Disposition Time: 22:57 Critical Care Time I spent a total of 90 minutes of critical care time in obtaining history, performing a physical exam, bedside monitoring of interventions, collecting and interpreting tests and discussion with consultants but not including time spent performing procedures. Depart Departure Latest Vital Signs Vital Signs Date Time Temp Pulse Resp B/P (MAP) Pulse Ox O2 Delivery O2 Flow Rate FiO2 06/23/18 04:05 97/58 (71) 06/23/18 04:02 92 17 06/23/18 03:57 97 06/22/18 21:42 4.0 06/22/18 21:32 99.0 Nasal Cannula Impression: Primary Impression: Altered mental status Additional Impressions: Sepsis End-stage renal disease on hemodialysis Hypotension Condition: Improved Disposition: XFER TO [facility] Referrals: ELSIE RUBIO MD (PCP) Problem Qualifiers Primary Impression: Altered mental status Altered mental status type: disorientation Qualified Codes: R41.0 - Disorientation, unspecified Additional Impressions: Sepsis Sepsis type: sepsis due to unspecified organism Qualified Codes: A41.9 - Sepsis, unspecified organism Hypotension Hypotension type: unspecified hypotension type Qualified Codes: I95.9 - Hypotension, unspecified URSULA CRANE DO Jun 22, 2018 21:37
--- NOTE | 2018-06-22 21:54 | EKG ---
[place]AC[place] [facility] [place] NAME: KWASI OWEN : [id number] MR: [id number] V: [id number] EXAM DATE: ORDERING PHYSICIAN: URSULA CRANE TECHNOLOGIST: VIOLETTE Koo Reason : SYNCOPE AND ?AFIB ON EMS Blood Pressure : / mmHG Vent. Rate : 098 BPM Atrial Rate : 098 BPM P-R Int : 204 ms QRS Dur : 090 ms QT Int : 474 ms P-R-T Axes : -08 015 005 degrees QTc Int : 605 ms Sinus rhythm Nonspecific T wave flattening Prolonged QT Abnormal ECG Confirmed by JV TURCIOS ([id number]) on 06/22/2018 10:30:54 PM Referred By: Confirmed By:JV TURCIOS
[2018-06-22] MEDS ORDERED: NS(*) 0.9% 250 ML BAG 250 ML IV SCH ×2 (22:15→23:25)
[2018-06-22 22:31] LABS: PLATELET COUNT, AUTOMATED 187 K/uL (150-450)
[2018-06-22 22:48] LABS: INR 1.2
--- NOTE | 2018-06-22 23:14 | RADIOLOGY IMAGING REPORT ---
FACILITY: [facility] PATIENT NAME: Yadiel Nguyen : 1955 MR: [id number] V: [id number] EXAM DATE: ORDERING PHYSICIAN: URSULA CRANE TECHNOLOGIST: Location: [facility] [place] Patient: Yadiel Nguyen : 1955 Visit/Account:[id number] Date of Sevice: 06/22/2018 AP CHEST 06/22/2018 9:37 PM. INDICATION: Chest pain. COMPARISON: 03/08/2018. FINDINGS: Lungs are well-expanded. There is no consolidation. No pleural effusion or pneumothorax. Unchanged e nlargement of the cardiac silhouette. IMPRESSION: Unchanged enlargement of cardiac silhouette with no apparent acute. Report Dictated By: Gildardo Aranda MD at 06/22/2018 11:08 PM Report E-Signed By: Gildardo Aranda MD at 06/22/2018 11:09 PM WSN:[id number]
--- NOTE | 2018-06-22 23:54 | RADIOLOGY IMAGING REPORT ---
FACILITY: [facility] PATIENT NAME: Yadiel Nguyen : 1955 MR: [id number] V: [id number] EXAM DATE: ORDERING PHYSICIAN: URSULA CRANE TECHNOLOGIST: Location: Patient: Yadiel Nguyen : 1955 Visit/Account:[id number] Date of Sevice: 06/22/2018 CT Head without contrast Indication: Altered mental status. Comparison: 01/24/2017. Technique: Axial CT images were obtained through the brain from the skull base to the vertex without administration of IV contrast. One of the following dose optimization techniques was utilized in th e performance of this exam: Automated exposure control; adjustment of the mA and/or kV according to t he patient's size; or use of an iterative reconstruction technique. Specific details can be referen janette in the facility's radiology CT exam operational policy. Findings: No evidence of mass, mass effect, or midline shift. No acute intracranial hemorrhage or acute territorial infarction. Skull is nonacute. Lens surgery on the left. Mild mucosal thickening with a small amount of fluid in the right maxillary sinus. Right mastoid eff usion. IMPRESSION: 1. No acute intracranial abnormality. 2. Mild right maxillary sinus disease. 3. Right mastoid effusion. Report Dictated By: Gildardo Aranda MD at 06/22/2018 11:46 PM Report E-Signed By: Gildardo Aranda MD at 06/22/2018 11:50 PM WSN:[id number]
[2018-06-23] MEDS ORDERED: PIPERACILLIN/TAZO*3.375GM VIAL 3.375 GM in NS(*) 0.9% 100 ML ADDVANT BAG 100 ML IVPB ONE (00:25)
[2018-06-23] MEDS ORDERED: NS(*) 0.9% 500 ML BAG 500 ML IV ONE (00:35)
[2018-06-23] MEDS ORDERED: VANCOMYCIN IVPB ONE (00:35)
[2018-06-23] MEDS ORDERED: NS 0.9% IVPB ONE (00:35)
--- NOTE | 2018-06-23 02:18 | Procedure Note ---
Central Line Procedure Note Indication for Central Line: Sepsis, meds, IV fluids, blood draws Consent Signed: Yes Central Line Lumen: Triple Central Line Procedure: Chlorhexidine Prep, Sterile Drapes Applied, Sterile Dressing Applied Central Line Position: L Femoral Anesthesia Used: 1% Lidocaine CC's of Anesthesia: 5 Complications: None Central Line Post Position: Sutured, Confirmed Blood Return MELISSA NEWTON MD Jun 23, 2018 02:18
[2018-06-23] MEDS ORDERED: NS(*) 0.9% 1000 ML BAG 1,000 ML IV ONE (02:25)
[2018-06-23] MEDS ORDERED: NOREPINE BITAR* 4 MG/4 ML AMP 4 MG in D5W(*) 250 ML BAG 246 ML IV PRN (03:05)
[2018-06-23 04:05] VITALS: BP 97/58
== END 2018-06-23 04:40 | disposition short-term general hospital (02) ==
LOC: ER 21:32
DX: R41.0 Disorientation, unspecified (principal); A41.9 Sepsis, unspecified organism; I95.9 Hypotension, unspecified; N18.6 End stage renal disease; Z99.2 Dependence on renal dialysis; R55 Syncope and collapse; I48.91 Unspecified atrial fibrillation; R07.9 Chest pain, unspecified
CPT/HCPCS: 36415; 70450; 71045; 83605; 83880; 84484; 85025; 85379; 85610; 85730; 87040; 93005; 96365; 96366; 99291; 99292; J2543; J3370; J7030; J7040; J7050; J7060; 82040; 82247; 82310; 82374; 82435; 82565; 82947; 84075; 84132; 84155; 84295; 84450; 84460; 84520

== ENCOUNTER → 2018-06-22 | Outpatient (CLI) | payer MEDICARE, BC ==
[2018-06-22 08:12] VITALS: BMI 39.6
== END ==
LOC: AMB 20:54
PROVIDERS: ATTEND Nurse Practitioner
DX: R41.82 Altered mental status, unspecified (principal); I95.9 Hypotension, unspecified; R30.0 Dysuria; R61 Generalized hyperhidrosis
CPT/HCPCS: A0425; A0427

== ENCOUNTER → 2018-06-23 | Outpatient (REF) ==
[2018-06-22 08:12] VITALS: BMI 39.6
== END ==
LOC: AMB 03:28
PROVIDERS: ATTEND Nurse Practitioner
DX: Z02.9 Encounter for administrative examinations, unspecified (principal)

== ENCOUNTER → 2018-09-07 | Outpatient (CLI) | payer MEDICARE, BC ==
[2018-06-22 08:12] VITALS: BMI 39.6
[~2018-09-07] MED LIST changes: +ATOR20TA65 PO; +LIDO15SO2 PR
--- NOTE | 2018-09-07 14:39 | EKG ---
FACILITY: [facility] PATIENT NAME: KWASI OWEN : [id number] MR: [id number] V: [id number] EXAM DATE: ORDERING PHYSICIAN: ELSIE RUBIO TECHNOLOGIST: ROSA Test Reason : PRE OP Blood Pressure : / mmHG Vent. Rate : 077 BPM Atrial Rate : 077 BPM P-R Int : 218 ms QRS Dur : 086 ms QT Int : 408 ms P-R-T Axes : 003 013 -20 degrees QTc Int : 461 ms Sinus rhythm with 1st degree AV block Low voltage QRS Cannot rule out Anterior infarct , age undetermined Abnormal ECG When compared with ECG of 22-JUN-2018 21:44, Previous ECG has undetermined rhythm, needs review Minimal criteria for Anterior infarct are now present Nonspecific T wave abnormality, improved in Lateral leads QT has shortened Confirmed by MELISSA AVILES ([id number]) on 09/07/2018 6:19:55 PM Referred By: RAMIRO Confirmed By:MELISSA AVILES
== END ==
LOC: RESP 14:03
PROVIDERS: ATTEND Internal Medicine
DX: Z01.810 Encounter for preprocedural cardiovascular examination (principal); R94.31 Abnormal electrocardiogram [ECG] [EKG]
CPT/HCPCS: 93005

== ENCOUNTER → 2018-09-07 | Outpatient (CLI) | payer MEDICARE, BC ==
[2018-06-22 08:12] VITALS: BMI 39.6
[~2018-09-07] MED LIST changes: +[UNRECOGNIZED DRUG - CODE] MC
== END ==
LOC: LAB 11:31
PROVIDERS: ATTEND Internal Medicine
DX: Z01.818 Encounter for other preprocedural examination (principal); N18.6 End stage renal disease; I25.10 Atherosclerotic heart disease of native coronary artery without angina pectoris; E11.9 Type 2 diabetes mellitus without complications; E11.40 Type 2 diabetes mellitus with diabetic neuropathy, unspecified
CPT/HCPCS: 36415; 82040; 82247; 82310; 82374; 82435; 82465; 82565; 82947; 83036; 83718; 84075; 84132; 84155; 84295; 84443; 84450; 84460; 84478; 84520

== ENCOUNTER → 2018-10-20 | Day surgery (SDC) | payer MEDICARE, BC ==
[2018-06-22 08:12] VITALS: Ht 170.2 cm; Wt 115.7 kg
[~2018-10-20] VITALS: Ht 170.2 cm; Wt 115.7 kg
[~2018-10-20] MED LIST changes: -BUM2 PO; +BUME2TAB17 PO; +INSU100V26 SC; +LIDOCAINE/SOD BICARB 8.4% SYR ID ONE; +NS(*) 0.9% 500 ML BAG 500 ML IV PRN; +OXYGENHOME INH; -TRAZ50TA34 PO; +TRAZ50TA52 PO
[2018-10-20 06:10] VITALS: BP 115/72
[2018-10-20 09:10] VITALS: BP 90/58
--- NOTE | 2018-10-20 09:24 | Short(Outpt) Discharge Summary ---
Discharge Summary Reason for Hosp/Final Diag: (1) Blood per rectum Hospital Course & Plan: pt presented for colonoscopy. he tolerated the procedure well and will be discharged home when criteria met. Departure Discharge to: Home Discharge Instructions Home Meds Active Scripts Blood Sugar Diagnostic (FREESTYLE LITE TEST STRIPS) 1 Each Strip, 1 EACH MC QID, #100 STRIP 7 Refills use four times a day to test blood sugar Prov:ELSIE RUBIO MD 09/27/18 Syring W-Ndl,Disp,Insul,0.5ML (EASY TOUCH INSULIN SYRINGE) 1 Each Disp.syrin, BOX MC ONCE, #10 5 Refills Prov:ELSIE RUBIO MD 09/11/18 Escitalopram Oxalate (ESCITALOPRAM OXALATE) 10 Mg Tablet, 10 MG PO QDAY, #90 TAB 1 Refill Prov:ELSIE RUBIO MD 09/07/18 Gabapentin (GABAPENTIN) 300 Mg Capsule, 600 MG PO BID, #180 CAPSULE 3 Refills Prov:ELSIE RUBIO MD 08/18/18 Atorvastatin Calcium (ATORVASTATIN CALCIUM) 20 Mg Tablet, 1 TAB PO QDAY, #30 TAB 6 Refills Prov:ELSIE RUBIO MD 07/25/18 Lidocaine HCl VISCOUS 2% (Lidocaine Viscous) 2 % Solution, 1 MIGEL TX Q4H, #1 TUBE 1 Refill Prov:KWASI SAAB 07/24/18 Allopurinol (ALLOPURINOL) 100 Mg Tablet, 1 TAB PO QDAY, #90 TAB 4 Refills Prov:ELSIE RUBIO MD 06/16/18 Flash Glucose Scanning [place] (Freestyle Mylene 14 Day [place]) 1 Each Each, UNIT TD DIRECTED, #1 Prov:ELSIE RUBIO MD 04/05/18 Pantoprazole Sodium (PANTOPRAZOLE SODIUM) 40 Mg Tablet.dr, 1 TAB PO QDAY, #90 TAB.SR 3 Refills Prov:ELSIE RUBIO MD 11/17/17 Polyethylene Glycol 3350 (POLYETHYLENE GLYCOL 3350) 17 Gm Powd.pack, 17 GM PO QDAY PRN for CONSTIPATION, #30 PACKET Prov:ELSIE RUBIO MD 01/05/17 Reported Medications Oxygen (OXYGEN) Inha, 2 L INH QDAY, L 10/16/18 Midodrine Hcl (MIDODRINE HCL) 10 Mg Tablet, 10 MG PO TID 07/03/18 Insulin Regular, Human (HUMULIN R) 100 Unit/1 Ml Vial, 10-20 UNIT SC 1-4XD, VIAL 06/12/18 Insulin NPH Human Isophane (Humulin N) 100 Unit/Ml Vial, 18 UNITS SUBQ TIDAC 06/12/18 Calcium Carbonate (TUMS) 300 Mg Tab.chew, 1000 MG PO QHS, TAB.CHEW 12/28/17 Bacitracin (BACITRACIN) 3.5 Gm Oint...g., 3.5 GM OP 7x per day 02/14/17 Aspirin (ASPIR 81) 81 Mg Tablet.dr, 81 MG PO QDAY, TAB 01/05/17 Discontinued Reported Medications Vit B Cmplx 3/Fa/Vit C/Biotin (ERNST-NAV RX TABLET) 1 Each Tablet, 1 EACH PO DAILY 04/21/16 Discontinued Scripts Flash Glucose Sensor (Freestyle Mylene 14 Day Sensor) 1 Each Kit, UNIT Q2WK, #2 11 Refills Prov:ELSIE RUBIO MD 04/05/18 Diet: Regular Activity: As Tolerated Special Instructions: we will call you in 10 days with biopsy results. KWASI SAAB Oct 20, 2018 09:24
[2018-10-20 09:30] VITALS: BP 91/56
[2018-10-20 10:00] VITALS: BP 118/65
[2018-10-20 10:15] VITALS: BP 105/64
== END ==
LOC: OR 01:03
PROVIDERS: ATTEND Surgery
DX: D12.2 Benign neoplasm of ascending colon (principal)
CPT/HCPCS: 00811; 36415; 36416; 45385; 82948; 84132; 88305; J7040

== ENCOUNTER → 2018-11-24 | Outpatient (REF) | payer MEDICARE, BC ==
[2018-06-22 08:12] VITALS: BMI 39.6
[~2018-11-24] MED LIST changes: +BRI10OD OS; +CIPR-344 PO; +COMODPT OS; -LIDOCAINE/SOD BICARB 8.4% SYR ID ONE; +METR-1 PO; -NS(*) 0.9% 500 ML BAG 500 ML IV PRN
== END ==
LOC: ZZSENDIN 08:07
PROVIDERS: ATTEND Internal Medicine Cardiovascular Disease
DX: I25.10 Atherosclerotic heart disease of native coronary artery without angina pectoris (principal)
CPT/HCPCS: 82465; 83718; 84478